=== PATIENT | female | born 1930 | race Caucasian/White ===

== ENCOUNTER 2016-11-27 06:51 | Outpatient (CLI) | payer MEDICARE, MEDICAID | END 2016-11-27 06:52 | disposition home or self-care (01) | DX: I50.40 Unspecified combined systolic (congestive) and diastolic (congestive) heart failure (principal); N18.9 Chronic kidney disease, unspecified ==

== ENCOUNTER 2016-11-27 08:00 | Outpatient (CLI) | payer MEDICARE, MEDICAID | END 2016-11-27 23:59 | disposition home or self-care (01) | DX: N39.0 Urinary tract infection, site not specified (principal) ==

== ENCOUNTER 2017-02-03 21:25 | Outpatient (CLI) | payer MEDICARE, MEDICAID | END 2017-02-03 21:26 | DX: E88.9 Metabolic disorder, unspecified (principal); R73.09 Other abnormal glucose; T46.0X5A Adverse effect of cardiac-stimulant glycosides and drugs of similar action, initial encounter ==

== ENCOUNTER 2017-02-22 12:30 | Outpatient (CLI) | payer MEDICARE, MEDICAID | END 2017-02-22 12:31 | disposition home or self-care (01) | DX: N18.9 Chronic kidney disease, unspecified (principal); I50.9 Heart failure, unspecified ==

== ENCOUNTER 2017-03-28 08:00 | Outpatient (CLI) | payer MEDICARE, MEDICAID ==
[2017-03-28 16:10] LABS: BASOPHILS # (AUTO) 0.1 10^3/uL (0.0-0.1); BASOPHILS % (AUTO) 0.5 %; EOSINOPHILS # (AUTO) 0.3 10^3/uL (0.0-0.7); EOSINOPHILS % (AUTO) 2.1 %; HCT - HEMATOCRIT 34.5 % (37.0-47.0); HGB - HEMOGLOBIN 11.1 g/dL (12.0-16.0); LYMPHOCYTES # (AUTO) 1.7 10^3/uL (1.5-3.5); LYMPHOCYTES % (AUTO) 11.2 %; MEAN CORPUSCULAR HEMOGLOBIN 29.2 pg (27.0-31.0); MEAN CORPUSCULAR HGB CONC 32.3 g/dL (32.0-36.0); MEAN CORPUSCULAR VOLUME 90.3 fL (81.0-99.0); MEAN PLATELET VOLUME 7.4 fL (7.9-10.8); MONOCYTES # (AUTO) 0.9 10^3/uL (0.0-1.0); MONOCYTES % (AUTO) 6.3 %; NEUTROPHILS # (AUTO) 12.1 10^3/uL (1.5-6.6); NEUTROPHILS % (AUTO) 79.9 %; RED BLOOD COUNT 3.82 10^6/uL (4.20-5.40); RED CELL DISTRIBUTION WIDTH 14.7 % (12.0-15.0); UNCORRECTED WHITE BLOOD COUNT 15.1 x10^3/uL; WHITE BLOOD COUNT 15.1 x10^3/uL (4.8-10.8)
[2017-03-28 16:21] LABS: CALCIUM 8.8 mg/dL (8.5-10.3); CREATININE 1.8 mg/dL (0.4-1.0); POTASSIUM 4.2 mmol/L (3.5-5.0)
== END 2017-03-28 08:01 | disposition home or self-care (01) ==
LOC: LAB.R 08:00
DX: R79.9 Abnormal finding of blood chemistry, unspecified (principal); R68.89 Other general symptoms and signs
CPT/HCPCS: 80048; 85025

== ENCOUNTER 2017-05-28 18:00 | Outpatient (CLI) | payer MEDICARE, MEDICAID ==
[2017-05-28 21:13] LABS: BASOPHILS # (AUTO) 0.1 10^3/uL (0.0-0.1); BASOPHILS % (AUTO) 0.5 %; EOSINOPHILS % (AUTO) 0.1 %; HCT - HEMATOCRIT 34.7 % (37.0-47.0); HGB - HEMOGLOBIN 11.4 g/dL (12.0-16.0); LYMPHOCYTES # (AUTO) 0.4 10^3/uL (1.5-3.5); LYMPHOCYTES % (AUTO) 2.8 %; MEAN CORPUSCULAR HEMOGLOBIN 30.1 pg (27.0-31.0); MEAN CORPUSCULAR HGB CONC 32.8 g/dL (32.0-36.0); MEAN CORPUSCULAR VOLUME 91.7 fL (81.0-99.0); MEAN PLATELET VOLUME 8.4 fL (7.9-10.8); MONOCYTES # (AUTO) 0.8 10^3/uL (0.0-1.0); MONOCYTES % (AUTO) 5.3 %; NEUTROPHILS # (AUTO) 13.8 10^3/uL (1.5-6.6); NEUTROPHILS % (AUTO) 91.3 %; RED BLOOD COUNT 3.79 10^6/uL (4.20-5.40); RED CELL DISTRIBUTION WIDTH 16.6 % (12.0-15.0); UNCORRECTED WHITE BLOOD COUNT 15.1 x10^3/uL; WHITE BLOOD COUNT 15.1 x10^3/uL (4.8-10.8)
[2017-05-28 21:20] LABS: CALCIUM 8.8 mg/dL (8.5-10.3); CREATININE 1.9 mg/dL (0.4-1.0); POTASSIUM 3.1 mmol/L (3.5-5.0)
== END 2017-05-28 18:01 | disposition home or self-care (01) ==
LOC: LAB 18:00
PROVIDERS: ATTEND Internal Medicine
DX: N39.0 Urinary tract infection, site not specified (principal); R68.89 Other general symptoms and signs
CPT/HCPCS: 80048; 80053; 85025; 87086

== ENCOUNTER 2017-05-29 08:01 | Outpatient (CLI) | payer MEDICARE, MEDICAID | END 2017-05-29 08:02 | disposition critical access hospital (66) | LOC: EMS 08:01 | PROVIDERS: ATTEND Surgery | DX: R69 Illness, unspecified (principal) | CPT/HCPCS: A0425; A0429 ==

== ENCOUNTER 2017-05-29 08:06 | Inpatient (IN) | payer MEDICARE, MEDICAID ==
[2017-05-29] MEDS ORDERED: SODIUM CHLORIDE 0.9% 1,000 ML IV ONE ×2 (08:24→10:16)
[2017-05-29] MEDS ORDERED: ACETAMINOPHEN 1,000 MG/100 ML 100 ML IV STA (08:24)
[2017-05-29 08:37] LABS: BILIRUBIN,URINE NEGATIVE (NEGATIVE)
[2017-05-29 08:44] LABS: UA w/ MICROSCOPIC CHARGE YES
[2017-05-29] MEDS ORDERED: ACETAMINOPHEN 1,000 MG/100 ML 100 ML IV ONE (08:52)
[2017-05-29 08:55] LABS: CALCIUM 9.1 mg/dL (8.5-10.3); CREATININE 1.9 mg/dL (0.4-1.0); POTASSIUM 3.2 mmol/L (3.5-5.0)
--- NOTE | 2017-05-29 08:59 | ED Physician Documentation ---
History of Present Illness - Stated complaint Stated Complaint: FLU LIKE SX - Chief complaint Chief Complaint: General - History obtained from History obtained from: Patient - Additonal information Additional information: Patient is a 87-year-old female from a retirement. She does have a history of multiple medical problems including dementia and is difficult to get any historic information from her at this time either due to underlying dementia due to an acute medical illness. Apparently she is sent over for evaluation of fever and concern for possible influenza. We believe her symptoms started last night because a sent blood work and a urine yesterday. Her white count at that time was 15. Here the patient has no complaints she is lying in the bed on her left side and is mostly nonverbal and moans when you touch her. She cries out in pain when she is stimulated anywhere. She is noted to be febrile here with a rectal temp of 103. Review of the patient's past medical history includes congestive heart failure, hypertension, atrial fibrillation on digoxin, dementia , diabetes chronic kidney disease and gout. She is limited intervention as far as resuscitation. Complete review of systems cannot be obtained due to patient's altered mental status and underlying dementia Review of Systems Unable to obtain: AMS, Dementia PD PAST MEDICAL HISTORY - Past Medical History Past Medical History: Yes Cardiovascular: Congestive heart failure, Hypertension, Atrial fibrillation, Arrhythmia Neuro: Dementia Endocrine/Autoimmune: Type 2 diabetes : Renal insuffiency - Past Surgical History Past Surgical History: No - Present Medications Home Medications: Ambulatory Orders Medication Instructions Recorded Confirmed Allopurinol 300 mg PO DAILY 06/25/13 05/29/17 Aspirin [Aspir 81] 81 mg PO DAILY 06/25/13 05/29/17 Cetirizine [ZyrTEC] 10 mg PO ONCE 06/25/13 05/29/17 Furosemide 20 mg PO DAILY 06/25/13 05/29/17 Meclizine [Antivert] 12.5 mg PO Q6H 06/25/13 05/29/17 Potassium Chloride [Klor-Con] 20 meq PO DAILY 06/25/13 05/29/17 Ranitidine HCl 150 mg PO DAILY 06/25/13 05/29/17 Atorvastatin [Lipitor] 20 mg PO DAILY 05/29/17 05/29/17 Digoxin [Lanoxin] 125 mcg PO DAILY 05/29/17 05/29/17 Metoprolol Tartrate 25 mg PO BID 05/29/17 05/29/17 Polyethylene Glycol 3350 [Miralax] 17 g PO DAILY 05/29/17 05/29/17 Prazosin [Minipress] 1 mg PO DAILY 05/29/17 05/29/17 - Allergies Allergies/Adverse Reactions: Allergies Allergy/AdvReac Type Severity Reaction Status Date / Time No Known Drug Allergies Allergy Verified 06/25/13 11:43 - Social History Does the pt smoke?: No Smoking Status: Never smoker Does the pt drink ETOH?: No Does the pt have substance abuse?: No - POLST Patient has POLST: No PD ED PE NORMAL - Vitals Vital signs reviewed: Yes - General General: Other (Somnolent but arousable to voice elderly female lying in the bed left lateral decubitus position. She is very warm to touch) - HEENT HEENT: Atraumatic, PERRL, Other (Edentulous dry oral mucosa) - Neck Neck: Supple, no meningeal sign - Cardiac Cardiac: RRR, Other (Stenotic sounding murmur on auscultation) - Respiratory Respiratory: No respiratory distress, Clear bilaterally - Abdomen Abdomen: Normal bowel sounds, Soft, Non tender, Non distended - Back Back: No CVA TTP - Derm Derm: Normal color, Warm and dry, No rash - Extremities Extremities: No deformity, No tenderness to palpate - Neuro Neuro: No motor deficit, No sensory deficit Results - Vitals Vitals: Vital Signs - 24 hr 05/29/17 05/29/17 05/29/17 08:08 08:47 09:56 Temperature 39.6 C H 37.6 C H Heart Rate 96 94 79 Respiratory 22 18 22 Rate Blood Pressure 176/88 H 177/55 H 144/49 H O2 Saturation 97 95 95 Oxygen O2 Source Room air - Labs Labs: Laboratory Tests 05/29/17 05/29/17 05/29/17 08:20 08:40 08:40 WBC RBC Hgb Hct MCV MCH MCHC RDW Plt Count MPV Sodium 136 Potassium 3.2 L Chloride 100 L Carbon Dioxide 25 Anion Gap 11.0 BUN 26 H Creatinine 1.9 H Estimated GFR (MDRD) 25 L Glucose 154 H Lactic Acid Calcium 9.1 Troponin I 0.10 Urine Color YELLOW Urine Clarity CLEAR Urine pH 7.0 Ur Specific [place] 1.020 Urine Protein >=300 H Urine Glucose (UA) NEGATIVE Urine Ketones NEGATIVE Urine Occult Blood SMALL H Urine Nitrite NEGATIVE Urine Bilirubin NEGATIVE Urine Urobilinogen 1 (NORMAL) Ur Leukocyte Esterase NEGATIVE Urine RBC 0-5 Urine WBC 0-3 Ur Squamous Epith Cells FEW Squamous Urine Bacteria Few Urine Casts 0-2 Course Granular Ur Microscopic Review INDICATED Urine Culture Comments NOT INDICATED Last Dose Date Last Dose Time Digoxin 05/29/17 05/29/17 05/29/17 08:40 08:40 08:40 WBC 20.5 H RBC 4.11 L Hgb 12.0 Hct 36.9 L MCV 89.7 MCH 29.3 MCHC 32.6 RDW 16.6 H Plt Count 266 MPV 8.3 Sodium Potassium Chloride Carbon Dioxide Anion Gap BUN Creatinine Estimated GFR (MDRD) Glucose Lactic Acid 1.3 Calcium Troponin I Urine Color Urine Clarity Urine pH Ur Specific [place] Urine Protein Urine Glucose (UA) Urine Ketones Urine Occult Blood Urine Nitrite Urine Bilirubin Urine Urobilinogen Ur Leukocyte Esterase Urine RBC Urine WBC Ur Squamous Epith Cells Urine Bacteria Urine Casts Ur Microscopic Review Urine Culture Comments Last Dose Date UNK Last Dose Time UNK Digoxin 0.8 PD MEDICAL DECISION MAKING - ED course Complexity details: reviewed old records, reviewed results, re-evaluated patient , considered differential, d/w patient ED course: 87-year-old female who was sent in for evaluation of an illness. The retirement thought maybe she had influenza. Apparently she was sick last night and he sent a CBC which came back elevated with white count of 15. Urine initial presentation the patient is somnolent here on initial examination the patient is somnolent and noted to be febrile probably a combination of dementia and underlying disease process. Her neurologic exam however is nonfocal. An IV line was started she is given fluid hydration and IV Tylenol. Once the blood cultures are obtained a chest x-ray was performed which demonstrates airspace disease in the right side probably consistent with early pneumonic infiltrate. Rocephin and then azithromycin was added on. Her white count is increased from last night to 20,000. Her lactate is within normal limits at this time. Despite having EKG despite having a history of atrial fibrillation she is in normal sinus rhythm today this EKG demonstrates normal sinus rhythm at 84 bpm the LA QRS and QT intervals are normal there is no obvious ST elevation, depression or T-wave inversion there is a couple PVCs seen. This patient does have chronic kidney disease which is ongoing. Her urine is negative for infection. At this point in time we will seek admission for this patient. Disposition: Admission Clinical impression: 1. Sepsis 2. Source is urine source is pneumonia 3. Chronic kidney disease 4. History of atrial fibrillation 5. History of dementia Departure - Departure Disposition: ED Place in Observation Clinical Impression: Pneumonia
[2017-05-29] MEDS ORDERED: cefTRIAXone 1 GM VIAL IM STA (09:15)
--- NOTE | 2017-05-29 09:19 | XRAY Preliminary Report ---
Exam: XR Chest 1 View IMPRESSION: Right lower lobe airspace disease. [facility] SITE ID: [id number]
--- NOTE | 2017-05-29 09:21 | XRAY Report ---
EXAM: CHEST RADIOGRAPHY EXAM DATE: 05/29/2017 09:08 AM. CLINICAL HISTORY: Sepsis/cough. COMPARISON: Chest radiograph dated 06/25/2013. TECHNIQUE: 1 view. FINDINGS: Lungs/Pleura: Irregular opacities in the right midlung field. His were not present on the prior exami nation. No pleural effusion or pneumothorax. Mediastinum: Within exam limitations, cardiomediastinal contour is normal. Other: None. IMPRESSION: Right lower lobe airspace disease. [facility] Referring Provider Line: [phone] SITE ID: [id number]
[2017-05-29 09:23] LABS: WBC,URINE 0-3 /HPF (0-5)
[2017-05-29 09:24] LABS: UR CULTURE IF IND NOT INDICATED
[2017-05-29] MEDS ORDERED: cefTRIAXone 1 GM VIAL ONE (09:36)
[2017-05-29] MEDS ORDERED: SODIUM CHLORIDE FLUSH 0.9% 10 ML SYRINGE IVP ONE ×2 (09:36→10:25)
[2017-05-29] MEDS ORDERED: cefTRIAXone 1 GM in SODIUM CHLORIDE 0.9% MINIBAG 100 ML IV STA (09:50)
[2017-05-29 09:56] LABS: BASOPHILS % (AUTO) 0.4 %; EOSINOPHILS % (AUTO) 0.1 %; HCT - HEMATOCRIT 36.9 % (37.0-47.0); LYMPHOCYTES % (AUTO) 3.6 %; MEAN CORPUSCULAR HEMOGLOBIN 29.3 pg (27.0-31.0); MEAN CORPUSCULAR HGB CONC 32.6 g/dL (32.0-36.0); MEAN CORPUSCULAR VOLUME 89.7 fL (81.0-99.0); MEAN PLATELET VOLUME 8.3 fL (7.9-10.8); MONOCYTES % (AUTO) 2.9 %; RED BLOOD COUNT 4.11 10^6/uL (4.20-5.40); RED CELL DISTRIBUTION WIDTH 16.6 % (12.0-15.0); UNCORRECTED WHITE BLOOD COUNT 20.5 x10^3/uL; WHITE BLOOD COUNT 20.5 x10^3/uL (4.8-10.8)
[2017-05-29 10:00] LABS: BAND NEUTROPHILS % (MANUAL) 0 %
[2017-05-29] MEDS ORDERED: AZITHROMYCIN INJ 500 MG in SODIUM CHLORIDE 0.9% 250 ML IV STA (10:16)
[2017-05-29] MEDS ORDERED: MECLIZINE 12.5 MG TABLET PO PRN (11:12)
[2017-05-29] MEDS ORDERED: PROCHLORPERAZINE 10 MG/2 ML VIAL IVP PRN (11:16)
[2017-05-29] MEDS ORDERED: ONDANSETRON 4 MG/2 ML VIAL IVP PRN (11:16)
[2017-05-29] MEDS ORDERED: oxyCODONE 5 MG TABLET PO PRN (11:16)
[2017-05-29] MEDS ORDERED: ZOLPIDEM 5 MG TABLET PO PRN (11:16)
[2017-05-29] MEDS ORDERED: SODIUM CHLORIDE FLUSH 0.9% 10 ML SYRINGE IVP PRN (11:16)
[2017-05-29 11:56] LABS: LYMPHOCYTES % (MANUAL) 3 %; NEUTROPHILS % (MANUAL) 95 %; TOTAL CELLS COUNTED 100
[2017-05-29 12:00] LABS: NP AUTO DIFFERENTIAL? YES; NP MAN DIFFERENTIAL? NO; PLATELET ESTIMATE, MANUAL NORMAL (130-450,000) (NORMAL); PLATELET MORPHOLOGY NORMAL APPEARANCE (NORMAL)
[2017-05-29] MEDS: SODIUM CHLORIDE 0.9% 1,000 ML IV SCH ×2 (12:17→21:58)
[2017-05-29] MEDS: INSULIN ASPART 300 UNIT/3 ML PEN SUBQ SCH ×3 (12:21→22:16)
[2017-05-29 12:24] LABS: HEMOGLOBIN A1C 0.58 g/dL
[2017-05-29] MEDS: SODIUM CHLORIDE FLUSH 0.9% 10 ML SYRINGE IVP SCH ×2 (15:02→21:58)
[2017-05-29] MEDS: ACETAMINOPHEN 325 MG TABLET PO PRN (16:39)
[2017-05-29] MEDS: PRAZOSIN 1 MG CAPSULE PO SCH (18:36)
[2017-05-29] MEDS: METOPROLOL TARTRATE 25 MG TABLET PO SCH ×2 (18:36→20:38)
--- NOTE | 2017-05-29 19:40 | HISTORY & PHYSICAL EXAMINATION ---
Chief Complaint - Chief Complaint Chief Complaint: lethargy History of Present Illness - Admitted From Admitted From:: emergency department - History Obtained From Records Reviewed: yes History obtained from: patient's son and daughter Exam Limitations: patient very lethargic unable to provide history - History of Present Illness HPI Comment/Other: Patient is an 87-year-old female with a past medical history significant for diabetes, CTD stage III, asthma, hyperlipidemia, dementia, vertigo, GERD and atrial fibrillation not on Coumadin who presented to the emergency with lethargy. According to the patient's family the patient had not been feeling well for about 3 days. He states that she lives at [facility] and for the past 3 days the patient has become increasingly confused. She has been spiking fevers at [place]. She has become less and less active and increasingly weak. The family became very concerned as the patient was very somnolent this morning and had not gotten out of bed. The patient states that the altered mental status and lethargy were waxing and waning over the last 3 days but today she was persistently somnolent. The patient was seen by a physician yesterday in the skilled nursing and was found to have a leukocytosis once labs were received the patient was told to come into the emergency department. According to the family the patient has not been having any recent cough, shortness of breath, chest pain or any urinary symptoms. I was unable to get a history from the patient secondary to patient being lethargic and being unable to provide any history. On presentation to the emergency department the patient was febrile with a temperature of 39.6, tachycardic with heart rate of 96, tachypneic with respiratory rate of 22, she was lethargic and had a leukocytosis of 20.5. The patient underwent a chest x-ray which showed a right lower lobe airspace disease. The patient was admitted to the [facility] for sepsis likely secondary to pneumonia. Review of Systems - Other Findings Other Findings: Unable to obtain as patient is lethargic and cannot provide history. History - Past Medical History Cardiovascular: reports: Congestive heart failure, Hypertension, Atrial fibrillation, Arrhythmia Neuro: reports: Dementia Endocrine/Autoimmune: reports: Type 2 diabetes : reports: Renal insuffiency MRSA Hx?: No - Family & Social History Family History Comment/Other: Patient's mother had diabetes. Patient's daughter has diabetes. Patient's mother also had dementia. There is no family history of cancer or heart disease or stroke. Living arrangement: longterm Living Situation: Alone Social History Notes: The patient was born and [place]. She lives at [facility]. She is in a skilled nursing for the past year. Prior to that she lived with her son but he was unable to take care of her anymore as she was having increasing dementia. The patient's sister also lives with her at [facility]. The patient was previously a smoker quit in 1992 she used to smoke one pack per day. She does not drink any alcohol or using illicit drugs. - Substance History Use: Uses substance without health or social issues: NONE Abuse: Recurrent use of substance despite neg consequences: NONE Dependence: Experiences withdrawal or developed tolerances: NONE - POLST Patient has POLST: Yes POLST Status: DNR Meds/Allgy - Home Medications Home Medications: Ambulatory Orders Medication Instructions Recorded Confirmed Allopurinol 300 mg PO DAILY 06/25/13 05/29/17 Aspirin [Aspir 81] 81 mg PO DAILY 06/25/13 05/29/17 Cetirizine [ZyrTEC] 10 mg PO ONCE 06/25/13 05/29/17 Furosemide 20 mg PO DAILY 06/25/13 05/29/17 Meclizine [Antivert] 12.5 mg PO Q6H 06/25/13 05/29/17 Potassium Chloride [Klor-Con] 20 meq PO DAILY 06/25/13 05/29/17 Ranitidine HCl 150 mg PO DAILY 06/25/13 05/29/17 Atorvastatin [Lipitor] 20 mg PO DAILY 05/29/17 05/29/17 Digoxin [Lanoxin] 125 mcg PO DAILY 05/29/17 05/29/17 Metoprolol Tartrate 25 mg PO BID 05/29/17 05/29/17 Polyethylene Glycol 3350 [Miralax] 17 g PO DAILY 05/29/17 05/29/17 Prazosin [Minipress] 1 mg PO DAILY 05/29/17 05/29/17 - Allergies Allergies/Adverse Reactions: Allergies Allergy/AdvReac Type Severity Reaction Status Date / Time No Known Drug Allergies Allergy Verified 06/25/13 11:43 Exam - Vital Signs Reviewed Vital Signs: Yes Vital Signs: Vital Signs x48h Temp Pulse Pulse Resp BP BP Pulse Ox 05/29/17 18:58 38.0 C H 05/29/17 17:07 39.3 C H 90 18 188/85 H 96 05/29/17 12:10 36.5 C 74 18 160/76 H 95 05/29/17 11:36 37.2 C 73 20 167/58 H 98 - Physical Exam General Appearance: positive: Lethargic, Other (very difficult to arouse, lethargic, unable to provide history. Unable to follow commands.) Eyes Bilateral: positive: Normal inspection, PERRL, EOMI, No lid inflammation, Conjunctivae nml, No scleral icterus ENT: positive: ENT inspection nml, Pharynx nml, Dry mucous membranes (very dry) . negative: Purulent nasal drainage, Pharyngeal erythema, Oral lesions Neck: positive: Nml inspection, Thyroid nml, No JVD, Trachea midline. negative : Thyromegaly, Carotid bruit, Tracheal deviation Respiratory: positive: Chest non-tender, Rales (right lower lobe), Rhonchi ( right lower lobe), Other (tachypnea) Cardiovascular: positive: No murmur, No gallop, Irregularly irregular Peripheral Pulses: positive: 2+ Abdomen: positive: Non-tender, No organomegaly, Nml bowel sounds, No distention. negative: Guarding, Rebound, Hepatomegaly Back: positive: Nml inspection. negative: CVA tenderness (R), CVA tenderness (L ) Skin: positive: Color nml, No rash, Dry. negative: Cyanosis, Pallor Extremities: positive: Non-tender, Full ROM, No pedal edema Neurologic/Psychiatric: positive: Other (lethargic, uunable to follow commands, nonverbal. no focal deficits noted) Conclusion/Plan - Problem List (1) Sepsis Conclusion/Plan: Presented with lethargy and found to have tachycardia, tachypneic, febrile and WBC was 20 K Lactate normal Source appears to be pneumonia Plan: IV cefriaxone and azithro IV fluids Blood cultures pending Monitor closely on tele (2) CAP (community acquired pneumonia) Conclusion/Plan: Presented with sepsis and CXR showed right lower lobe pneumonia Continues to spike fevers and has WBC of 20K Plan: IV ceftriaxone and azithro IVFs Tylenol for fever Oxygen as needed Blood cx pending (3) Hypokalemia Conclusion/Plan: K was 3.2 on presentation likely secondary to dehydration as patient had vomiting at home and presented with sepsis secondary to pneumonia IV K riders Monitor K (4) Encephalopathy acute Conclusion/Plan: Secondary to sepsis Treat sepsis as above and monitor CT head if not improving (5) Atrial fibrillation Conclusion/Plan: HR controlled not on anticoagulation cOtninue digoxin and metoprolol Tele monitoring Qualifiers: Atrial fibrillation type: chronic Qualified Code(s): I48.2 - Chronic atrial fibrillation (6) Diabetes Conclusion/Plan: No on meds at home Given sepsis will control tightly with sliding scale insulin DM diet HbA1C Qualifiers: Diabetes mellitus type: type 2 (7) Hypertension Conclusion/Plan: BP stable Continue home meds Watch for hypotension with sepsis Give IVFs Qualifiers: Hypertension type: essential hypertension Qualified Code(s): I10 - Essential (primary) hypertension (8) Prophylactic use of low molecular weight heparin for venous thromboembolism (VTE) Conclusion/Plan: Place on lovenox - Lab Results Lab results reviewed: Yes Fish Bones: 05/29/17 08:40 05/29/17 08:40 Other Lab Results: Laboratory Results WBC 20.5 x10^3/uL (4.8-10.8) H 05/29/17 08:40 RBC 4.11 10^6/uL (4.20-5.40) L 05/29/17 08:40 Hgb 12.0 g/dL (12.0-16.0) 05/29/17 08:40 Hct 36.9 % (37.0-47.0) L 05/29/17 08:40 MCV 89.7 fL (81.0-99.0) 05/29/17 08:40 MCH 29.3 pg (27.0-31.0) 05/29/17 08:40 MCHC 32.6 g/dL (32.0-36.0) 05/29/17 08:40 RDW 16.6 % (12.0-15.0) H 05/29/17 08:40 Plt Count 266 10^3/uL (130-450) 05/29/17 08:40 MPV 8.3 fL (7.9-10.8) 05/29/17 08:40 Neut # Not Reportable 05/29/17 08:40 Lymph # Not Reportable 05/29/17 08:40 [place] # Not Reportable 05/29/17 08:40 Eos # Not Reportable 05/29/17 08:40 Baso # Not Reportable 05/29/17 08:40 Absolute Nucleated RBC Not Reportable 05/29/17 08:40 Total Counted 100 05/29/17 08:40 Band Neuts % (Manual) 0 % (0-10) 05/29/17 08:40 Neutrophils # (Manual) 19.5 10^3/uL (1.5-6.6) H 05/29/17 08:40 Lymphocytes # (Manual) 0.6 10^3/uL (1.5-3.5) L 05/29/17 08:40 Monocytes # (Manual) 0.4 10^3/uL (0.0-1.0) 05/29/17 08:40 Nucleated RBCs Not Reportable 05/29/17 08:40 Differential Comment MANUAL DIFFERENTIAL 05/29/17 08:40 Platelet Estimate NORMAL (130-450,000) (NORMAL) 05/29/17 08:40 Platelet Morphology NORMAL APPEARANCE (NORMAL) 05/29/17 08:40 RBC Morph Micro Appear 2+ ANISOCYTOSIS (NORMAL) 1+ MACROCYTOSIS (NORMAL) 1+ OVALOCYTES (NORMAL) 1+ POIKILOCYTOSIS (NORMAL) 05/29/17 08:40 RBC Morph Micro Appear 2+ ANISOCYTOSIS (NORMAL) 1+ MACROCYTOSIS (NORMAL) 1+ OVALOCYTES (NORMAL) 1+ POIKILOCYTOSIS (NORMAL) 05/29/17 08:40 RBC Morph Micro Appear 2+ ANISOCYTOSIS (NORMAL) 1+ MACROCYTOSIS (NORMAL) 1+ OVALOCYTES (NORMAL) 1+ POIKILOCYTOSIS (NORMAL) 05/29/17 08:40 RBC Morph Micro Appear 2+ ANISOCYTOSIS (NORMAL) 1+ MACROCYTOSIS (NORMAL) 1+ OVALOCYTES (NORMAL) 1+ POIKILOCYTOSIS (NORMAL) 05/29/17 08:40 Sodium 136 mmol/L (135-145) 05/29/17 08:40 Potassium 3.2 mmol/L (3.5-5.0) L 05/29/17 08:40 Chloride 100 mmol/L (101-111) L 05/29/17 08:40 Carbon Dioxide 25 mmol/L (21-32) 05/29/17 08:40 Anion Gap 11.0 (6-13) 05/29/17 08:40 BUN 26 mg/dL (6-20) H 05/29/17 08:40 Creatinine 1.9 mg/dL (0.4-1.0) H 05/29/17 08:40 Estimated GFR (MDRD) 25 (>89) L 05/29/17 08:40 Glucose 154 mg/dL (70-100) H 05/29/17 08:40 Glycated Hemoglobin 6.0 % (4.6-6.2) 05/29/17 09:50 Estim Average Glucose 126 (70-100) H 05/29/17 09:50 Lactic Acid 1.3 mmol/L (0.5-2.2) 05/29/17 08:40 Calcium 9.1 mg/dL (8.5-10.3) 05/29/17 08:40 Troponin I 0.10 ng/mL (<0.49) 05/29/17 08:40 Urine Color YELLOW 05/29/17 08:20 Urine Clarity CLEAR (CLEAR) 05/29/17 08:20 Urine pH 7.0 PH (5.0-7.5) 05/29/17 08:20 Ur Specific [place] 1.020 (1.002-1.030) 05/29/17 08:20 Urine Protein >=300 mg/dL (NEGATIVE) H 05/29/17 08:20 Urine Glucose (UA) NEGATIVE mg/dL (NEGATIVE) 05/29/17 08:20 Urine Ketones NEGATIVE mg/dL (NEGATIVE) 05/29/17 08:20 Urine Occult Blood SMALL (NEGATIVE) H 05/29/17 08:20 Urine Nitrite NEGATIVE (NEGATIVE) 05/29/17 08:20 Urine Bilirubin NEGATIVE (NEGATIVE) 05/29/17 08:20 Urine Urobilinogen 1 (NORMAL) E.U./dL (NORMAL) 05/29/17 08:20 Ur Leukocyte Esterase NEGATIVE (NEGATIVE) 05/29/17 08:20 Urine RBC 0-5 /HPF (0-5) 05/29/17 08:20 Urine WBC 0-3 /HPF (0-5) 05/29/17 08:20 Ur Squamous Epith Cells FEW Squamous (<= Few) 05/29/17 08:20 Urine Bacteria Few /HPF (None Seen) 05/29/17 08:20 Urine Casts 0-2 Course Granular /LPF 05/29/17 08:20 Ur Microscopic Review INDICATED 05/29/17 08:20 Urine Culture Comments NOT INDICATED 05/29/17 08:20 Last Dose Date UNK 05/29/17 08:40 Last Dose Time UNK 05/29/17 08:40 Digoxin 0.8 ng/mL 05/29/17 08:40 - Diagnostic Imaging Results Diagnostic Imaging Results: positive: Final report reviewed Diagnostic Imaging Results Comments: Chest x-ray Impression: Right lower lobe airspace disease - EKG Results EKG Interpreted Independently: Yes Issues/Core Measures - Anticipated LOS Anticipated Stay Length: 2 or more midnights - DVT/VTE - Prophylaxis VTE/DVT Prophylaxis med ordered at admit?: Yes
[2017-05-29] MEDS: POTASSIUM CHLOR 10 MEQ/100 ML 100 ML IV SCH ×3 (20:38→22:53)
[2017-05-29] MEDS ORDERED: ACETAMINOPHEN 650 MG SUPP PR PRN (23:06)
[2017-05-30] MEDS: PANTOPRAZOLE 40 MG TABLET PO SCH (06:31)
[2017-05-30] MEDS: SODIUM CHLORIDE FLUSH 0.9% 10 ML SYRINGE IVP SCH ×3 (06:31→19:48)
[2017-05-30 06:38] LABS: BASOPHILS % (AUTO) 0.2 %; EOSINOPHILS % (AUTO) 0.1 %; HGB - HEMOGLOBIN 10.7 g/dL (12.0-16.0); LYMPHOCYTES % (AUTO) 6.6 %; MEAN CORPUSCULAR HEMOGLOBIN 29.8 pg (27.0-31.0); MEAN CORPUSCULAR HGB CONC 32.4 g/dL (32.0-36.0); MEAN CORPUSCULAR VOLUME 91.8 fL (81.0-99.0); MEAN PLATELET VOLUME 8.3 fL (7.9-10.8); MONOCYTES # (AUTO) 0.5 10^3/uL (0.0-1.0); MONOCYTES % (AUTO) 2.9 %; NEUTROPHILS # (AUTO) 14.2 10^3/uL (1.5-6.6); NEUTROPHILS % (AUTO) 90.2 %; RED CELL DISTRIBUTION WIDTH 16.4 % (12.0-15.0); UNCORRECTED WHITE BLOOD COUNT 15.8 x10^3/uL; WHITE BLOOD COUNT 15.8 x10^3/uL (4.8-10.8)
[2017-05-30] MEDS: SODIUM CHLORIDE 0.9% 1,000 ML IV SCH ×2 (06:45→16:37)
[2017-05-30 06:48] LABS: CALCIUM 8.4 mg/dL (8.5-10.3); CREATININE 1.5 mg/dL (0.4-1.0); POTASSIUM 3.6 mmol/L (3.5-5.0)
[2017-05-30] MEDS: INSULIN ASPART 300 UNIT/3 ML PEN SUBQ SCH ×4 (08:38→21:35)
[2017-05-30] MEDS: cefTRIAXone 2 GM in SODIUM CHLORIDE 0.9% MINIBAG 100 ML IV SCH (08:39)
[2017-05-30] MEDS ORDERED: POTASSIUM CHLORIDE 20 MEQ TABLET PO SCH (09:00)
[2017-05-30] MEDS: AZITHROMYCIN INJ 500 MG in SODIUM CHLORIDE 0.9% 250 ML IV SCH (10:00)
[2017-05-30] MEDS: ASPIRIN EC 81 MG TABLET PO SCH (12:08)
[2017-05-30] MEDS: ATORVASTATIN 10 MG TABLET PO SCH (12:08)
[2017-05-30] MEDS: ALLOPURINOL 100 MG TABLET PO SCH (12:08)
[2017-05-30] MEDS: ENOXAPARIN 40 MG/0.4 ML SYRINGE SUBQ SCH (12:09)
[2017-05-30] MEDS: FUROSEMIDE 20 MG TABLET PO SCH (12:09)
[2017-05-30] MEDS: DIGOXIN 125 MCG TABLET PO SCH (12:09)
[2017-05-30] MEDS: METOPROLOL TARTRATE 25 MG TABLET PO SCH ×2 (12:09→21:39)
[2017-05-30] MEDS: PRAZOSIN 1 MG CAPSULE PO SCH (12:09)
[2017-05-30] MEDS: POLYETHYLENE GLYCOL 3350 17 GM PACKET PO SCH (12:10)
[2017-05-30] MEDS: ACETAMINOPHEN 325 MG TABLET PO PRN ×2 (16:38→21:39)
[2017-05-31] MEDS: SODIUM CHLORIDE 0.9% 1,000 ML IV SCH ×2 (01:55→16:22)
[2017-05-31] MEDS: SODIUM CHLORIDE FLUSH 0.9% 10 ML SYRINGE IVP SCH ×3 (06:18→20:42)
[2017-05-31 06:30] LABS: CALCIUM 8.3 mg/dL (8.5-10.3); CREATININE 1.4 mg/dL (0.4-1.0); POTASSIUM 2.8 mmol/L (3.5-5.0)
[2017-05-31 06:31] LABS: BASOPHILS % (AUTO) 0.2 %; EOSINOPHILS # (AUTO) 0.5 10^3/uL (0.0-0.7); EOSINOPHILS % (AUTO) 5.5 %; HCT - HEMATOCRIT 31.4 % (37.0-47.0); HGB - HEMOGLOBIN 10.4 g/dL (12.0-16.0); LYMPHOCYTES % (AUTO) 11.4 %; MEAN CORPUSCULAR HEMOGLOBIN 30.1 pg (27.0-31.0); MEAN CORPUSCULAR HGB CONC 33.3 g/dL (32.0-36.0); MEAN CORPUSCULAR VOLUME 90.6 fL (81.0-99.0); MEAN PLATELET VOLUME 8.3 fL (7.9-10.8); MONOCYTES # (AUTO) 0.5 10^3/uL (0.0-1.0); MONOCYTES % (AUTO) 5.3 %; NEUTROPHILS % (AUTO) 77.6 %; RED BLOOD COUNT 3.47 10^6/uL (4.20-5.40); RED CELL DISTRIBUTION WIDTH 16.8 % (12.0-15.0)
[2017-05-31] MEDS: INSULIN ASPART 300 UNIT/3 ML PEN SUBQ SCH ×4 (07:30→20:43)
[2017-05-31] MEDS: POTASSIUM CHLORIDE 20 MEQ TABLET PO SCH (09:00)
[2017-05-31] MEDS: ASPIRIN EC 81 MG TABLET PO SCH (09:00)
[2017-05-31] MEDS: cefTRIAXone 2 GM in SODIUM CHLORIDE 0.9% MINIBAG 100 ML IV SCH (09:00)
[2017-05-31] MEDS: METOPROLOL TARTRATE 25 MG TABLET PO SCH ×2 (09:00→20:39)
[2017-05-31] MEDS: ATORVASTATIN 10 MG TABLET PO SCH (09:00)
[2017-05-31] MEDS: PRAZOSIN 1 MG CAPSULE PO SCH (09:00)
[2017-05-31] MEDS: FUROSEMIDE 20 MG TABLET PO SCH (09:00)
[2017-05-31] MEDS: DIGOXIN 125 MCG TABLET PO SCH (09:00)
[2017-05-31] MEDS: ALLOPURINOL 100 MG TABLET PO SCH (09:00)
[2017-05-31] MEDS: PANTOPRAZOLE 40 MG TABLET PO SCH (09:37)
[2017-05-31] MEDS: ENOXAPARIN 40 MG/0.4 ML SYRINGE SUBQ SCH (11:32)
[2017-05-31] MEDS: POLYETHYLENE GLYCOL 3350 17 GM PACKET PO SCH (11:33)
[2017-05-31] MEDS: AZITHROMYCIN INJ 500 MG in SODIUM CHLORIDE 0.9% 250 ML IV SCH (11:34)
--- NOTE | 2017-05-31 11:43 | PROVIDER PROGRESS NOTE ---
Assessment/Plan - Problem List (1) Sepsis Assessment/Plan: Presented with lethargy and found to have tachycardia, tachypneic, febrile and WBC was 20 K Lactate normal Source appears to be pneumonia WBC down to 15.8 but patient still spiking fevers throughout the night and again today with Tmax of 39.6 Patient still very lethargic but more easily arousable On IV cefriaxone and azithro day 2 Blood cultures negative to date Improving slowly (2) CAP (community acquired pneumonia) Conclusion/Plan: Presented with sepsis and CXR showed right lower lobe pneumonia IV ceftriaxone and azithro day 2 IVFs Tylenol for fever Blood negative to date On RA Still lethargic but slightly better Improving slowly (3) Hypokalemia Conclusion/Plan: K was 3.2 on presentation likely secondary to dehydration as patient had vomiting at home and presented with sepsis secondary to pneumonia IV K riders K improved to 3.6 today (4) Encephalopathy acute Conclusion/Plan: Secondary to sepsis Still lethargic but mildly improved with treatment of sepsis (5) Atrial fibrillation Conclusion/Plan: HR controlled not on anticoagulation cOtninue digoxin and metoprolol Qualifiers: Atrial fibrillation type: chronic Qualified Code(s): I48.2 - Chronic atrial fibrillation (6) Diabetes Conclusion/Plan: No on meds at home Given sepsis will control tightly with sliding scale insulin DM diet HbA1C is 6.0 Once sepsis resolves will be able to stop SS inulin Qualifiers: Diabetes mellitus type: type 2 (7) Hypertension Conclusion/Plan: BP stable Continue home meds Watch for hypotension with sepsis Give IVFs Qualifiers: Hypertension type: essential hypertension Qualified Code(s): I10 - Essential (primary) hypertension (8) Acute Kidney Injury Conclusion/Plan: Secondary to sepsis and pre-renal azotemia Avoid nephrotoxic agents IVFs Industrial Equipment Mechanic down from 1.9 to 1.5 Improving (9) Prophylactic use of low molecular weight heparin for venous thromboembolism (VTE) Conclusion/Plan: Place on lovenox - Current Meds Current Meds: Current Medications Generic Name Dose Route Start Last Admin Trade Name Freq PRN Reason Stop Dose Admin Acetaminophen 650 mg 05/29/17 11:16 05/30/17 21:39 Tylenol PO 650 mg Q4HR PRN Administration Pain 1 to 4 Allopurinol 300 mg 05/30/17 09:00 08/09/17 12:08 Zyloprim PO 300 mg DAILY MANJULA Administration Aspirin 81 mg 05/30/17 09:00 05/30/17 12:08 Ecotrin PO 81 mg DAILY MANJULA Administration Atorvastatin Calcium 20 mg 05/30/17 09:00 05/30/17 12:08 Lipitor PO 20 mg DAILY MANJULA Administration Digoxin 125 mcg 05/30/17 09:00 05/30/17 12:09 Lanoxin PO 125 mcg DAILY MANJULA Administration Enoxaparin Sodium 40 mg 05/30/17 09:00 05/30/17 12:09 Lovenox SUBQ Not Given DAILY MANJULA Furosemide 20 mg 05/30/17 09:00 05/30/17 12:09 Lasix PO 20 mg DAILY MANJULA Administration Sodium Chloride 1,000 mls @ 100 mls/hr 05/29/17 12:00 05/31/17 01:55 Normal Saline 0.9% IV 100 mls/hr .Q10H MANJULA Administration Azithromycin 500 mg/ Sodium 250 mls @ 250 mls/hr 05/30/17 09:00 05/30/17 10:00 Chloride IV 250 mls/hr DAILY MANJULA Administration Ceftriaxone Sodium 2 gm/ 100 mls @ 200 mls/hr 05/30/17 09:00 05/30/17 08:39 Sodium Chloride IV 200 mls/hr DAILY MANJULA Administration Insulin Aspart 1 - 5 unit 05/29/17 12:00 05/30/17 21:35 Novolog SUBQ Not Given 0800,1200,1700,2100 [facility] Protocol Metoprolol Tartrate 25 mg 05/29/17 17:00 05/30/17 21:39 Lopressor PO 25 mg BID MANJULA Administration Pantoprazole Sodium 40 mg 05/30/17 07:00 05/31/17 09:37 Protonix PO 40 mg QDAC MANJULA Administration Polyethylene Glycol 17 gm 05/30/17 09:00 05/30/17 12:10 Miralax PO Not Given DAILY MANJULA Prazosin HCl 1 mg 05/29/17 17:00 05/30/17 12:09 Minipress PO 1 mg DAILY MANJULA Administration Sodium Chloride 10 ml 05/29/17 14:00 05/31/17 06:18 Normal Saline Flush 0.9% IVP Not Given Q8HR MANJULA - Lab Result Lab results reviewed: Yes Fish Bone Diagrams: 05/31/17 05:33 05/31/17 05:33 - EKG Results EKG Interpreted Independently: Yes - Diagnostic Imaging Results Diagnostic Imaging Results: Final report reviewed - Additional Planning Condition/Complexity: Guarded My Orders: My Active Orders 05/31/17 09:00 Potassium Chlor 10 Meq/100 ml [Potassium Chloride] 100 ml IV Q1H Potassium Chloride [K-Dur] 40 meq PO DAILYWM Plan Discussed with:: Patient Time Spent: 31-60 minutes Subjective - Subjective Patient Reports: Other (Lethargic, sleepy, wakes up for me and said she feels ok but goes right back to sleep. She does not appear to be in any acute distress otherwise.) Nursing Reports: Other (Too lethargic to take meds) Objective Vital Signs: Vital Signs - 24 hr 05/30/17 05/30/17 05/30/17 11:25 12:09 16:27 Temperature 38.5 C H Heart Rate [ 42 L Brachial] Heart Rate [ 84 Supine] Respiratory 20 Rate Blood Pressure 184/75 H Blood Pressure 160/78 H [Right Brachial artery] Blood Pressure 184/75 H [Supine] O2 Saturation 98 05/30/17 05/30/17 05/30/17 19:37 21:33 21:39 Temperature 37.4 C 38.0 C H Heart Rate [ 80 Brachial] Heart Rate [ Supine] Respiratory Rate Blood Pressure 161/59 H Blood Pressure 161/59 H [Right Brachial artery] Blood Pressure [Supine] O2 Saturation 05/30/17 05/31/17 05/31/17 22:59 00:00 09:34 Temperature 37.4 C 37.2 C 37.9 C H Heart Rate [ 75 83 Brachial] Heart Rate [ Supine] Respiratory 22 20 Rate Blood Pressure Blood Pressure 167/64 H 211/82 H [Right Brachial artery] Blood Pressure [Supine] O2 Saturation 94 97 05/31/17 10:15 Temperature 37.7 C H Heart Rate [ 84 Brachial] Heart Rate [ Supine] Respiratory Rate Blood Pressure Blood Pressure 192/71 H [Right Brachial artery] Blood Pressure [Supine] O2 Saturation Oxygen O2 Source Room air I&O (Last 24 Hrs): Intake and Output Totals x24h 05/29/17 05/30/17 05/31/17 23:59 23:59 23:59 Intake Total 1590 2940 Output Total 1 Balance 1590 2939 General: Other (Lethagric but arousable) HEENT: Atraumatic, PERRLA, EOMI, Other (Mucus membranes dry) Neck: Supple, No JVD, No thyromegaly Lymphatic: no adenopathy, axilla node tender (L) Neuro: Non Focal, Other (Lethargic) Cardiovascular: Regular rate, Normal S1, Normal S2, No murmurs Respiratory: Chest non-tender, Rhonchi (Right more than left but bilateral) Abdomen: Normal bowel sounds, Soft, No tenderness, No hepatospenomegaly Extremities: No clubbing, No cyanosis, Normal pulses, Other (Edema of feet) Skin: No rashes, No breakdown, No significant lesion - Results Results: Laboratory Results WBC 9.0 x10^3/uL (4.8-10.8) 05/31/17 05:33 RBC 3.47 10^6/uL (4.20-5.40) L 05/31/17 05:33 Hgb 10.4 g/dL (12.0-16.0) L 05/31/17 05:33 Hct 31.4 % (37.0-47.0) L 05/31/17 05:33 MCV 90.6 fL (81.0-99.0) 05/31/17 05:33 MCH 30.1 pg (27.0-31.0) 05/31/17 05:33 MCHC 33.3 g/dL (32.0-36.0) 05/31/17 05:33 RDW 16.8 % (12.0-15.0) H 05/31/17 05:33 Plt Count 227 10^3/uL (130-450) 05/31/17 05:33 MPV 8.3 fL (7.9-10.8) 05/31/17 05:33 Neut # 7.0 10^3/uL (1.5-6.6) H 05/31/17 05:33 Lymph # 1.0 10^3/uL (1.5-3.5) L 05/31/17 05:33 [place] # 0.5 10^3/uL (0.0-1.0) 05/31/17 05:33 Eos # 0.5 10^3/uL (0.0-0.7) 05/31/17 05:33 Baso # 0.0 10^3/uL (0.0-0.1) 05/31/17 05:33 Absolute Nucleated RBC 0.00 x10^3/uL 05/31/17 05:33 Total Counted 100 05/29/17 08:40 Band Neuts % (Manual) 0 % (0-10) 05/29/17 08:40 Neutrophils # (Manual) 19.5 10^3/uL (1.5-6.6) H 05/29/17 08:40 Lymphocytes # (Manual) 0.6 10^3/uL (1.5-3.5) L 05/29/17 08:40 Monocytes # (Manual) 0.4 10^3/uL (0.0-1.0) 05/29/17 08:40 Nucleated RBCs 0.0 /100WBC 05/31/17 05:33 Differential Comment MANUAL DIFFERENTIAL 05/29/17 08:40 Platelet Estimate NORMAL (130-450,000) (NORMAL) 05/29/17 08:40 Platelet Morphology NORMAL APPEARANCE (NORMAL) 05/29/17 08:40 RBC Morph Micro Appear 2+ ANISOCYTOSIS (NORMAL) 1+ MACROCYTOSIS (NORMAL) 1+ OVALOCYTES (NORMAL) 1+ POIKILOCYTOSIS (NORMAL) 05/29/17 08:40 RBC Morph Micro Appear 2+ ANISOCYTOSIS (NORMAL) 1+ MACROCYTOSIS (NORMAL) 1+ OVALOCYTES (NORMAL) 1+ POIKILOCYTOSIS (NORMAL) 05/29/17 08:40 RBC Morph Micro Appear 2+ ANISOCYTOSIS (NORMAL) 1+ MACROCYTOSIS (NORMAL) 1+ OVALOCYTES (NORMAL) 1+ POIKILOCYTOSIS (NORMAL) 05/29/17 08:40 RBC Morph Micro Appear 2+ ANISOCYTOSIS (NORMAL) 1+ MACROCYTOSIS (NORMAL) 1+ OVALOCYTES (NORMAL) 1+ POIKILOCYTOSIS (NORMAL) 05/29/17 08:40 Sodium 139 mmol/L (135-145) 05/31/17 05:33 Potassium 2.8 mmol/L (3.5-5.0) L 05/31/17 05:33 Chloride 109 mmol/L (101-111) 05/31/17 05:33 Carbon Dioxide 22 mmol/L (21-32) 05/31/17 05:33 Anion Gap 8.0 (6-13) 05/31/17 05:33 BUN 22 mg/dL (6-20) H 05/31/17 05:33 Creatinine 1.4 mg/dL (0.4-1.0) H 05/31/17 05:33 Estimated GFR (MDRD) 36 (>89) L 05/31/17 05:33 Glucose 89 mg/dL (70-100) 05/31/17 05:33 POC Whole Bld Glucose 93 mg/dL (70 - 100) 05/31/17 07:27 Glycated Hemoglobin 6.0 % (4.6-6.2) 05/29/17 09:50 Estim Average Glucose 126 (70-100) H 05/29/17 09:50 Lactic Acid 1.3 mmol/L (0.5-2.2) 05/29/17 08:40 Calcium 8.3 mg/dL (8.5-10.3) L 05/31/17 05:33 Troponin I 0.14 ng/mL (<0.49) 05/29/17 19:54 Urine Color YELLOW 05/29/17 08:20 Urine Clarity CLEAR (CLEAR) 05/29/17 08:20 Urine pH 7.0 PH (5.0-7.5) 05/29/17 08:20 Ur Specific [place] 1.020 (1.002-1.030) 05/29/17 08:20 Urine Protein >=300 mg/dL (NEGATIVE) H 05/29/17 08:20 Urine Glucose (UA) NEGATIVE mg/dL (NEGATIVE) 05/29/17 08:20 Urine Ketones NEGATIVE mg/dL (NEGATIVE) 05/29/17 08:20 Urine Occult Blood SMALL (NEGATIVE) H 05/29/17 08:20 Urine Nitrite NEGATIVE (NEGATIVE) 05/29/17 08:20 Urine Bilirubin NEGATIVE (NEGATIVE) 05/29/17 08:20 Urine Urobilinogen 1 (NORMAL) E.U./dL (NORMAL) 05/29/17 08:20 Ur Leukocyte Esterase NEGATIVE (NEGATIVE) 05/29/17 08:20 Urine RBC 0-5 /HPF (0-5) 05/29/17 08:20 Urine WBC 0-3 /HPF (0-5) 05/29/17 08:20 Ur Squamous Epith Cells FEW Squamous (<= Few) 05/29/17 08:20 Urine Bacteria Few /HPF (None Seen) 05/29/17 08:20 Urine Casts 0-2 Course Granular /LPF 05/29/17 08:20 Ur Microscopic Review INDICATED 05/29/17 08:20 Urine Culture Comments NOT INDICATED 05/29/17 08:20 Last Dose Date UNK 05/29/17 08:40 Last Dose Time UNK 05/29/17 08:40 Digoxin 0.8 ng/mL 05/29/17 08:40
--- NOTE | 2017-05-31 11:52 | PROVIDER PROGRESS NOTE ---
Assessment/Plan - Problem List (1) Sepsis Assessment/Plan: Presented with lethargy and found to have tachycardia, tachypneic, febrile and WBC was 20 K Lactate normal Source appears to be pneumonia WBC down to 9.0 but patient still spiking fevers yesterday Tmax 38.5 so far today Temp elevated but less than 38 Patient still lethargic but easier to arouse On IV cefriaxone and azithro day 3 Blood cultures negative to date Improving slowly (2) CAP (community acquired pneumonia) Conclusion/Plan: Presented with sepsis and CXR showed right lower lobe pneumonia IV ceftriaxone and azithro day 2 IVFs Tylenol for fever Blood negative to date On RA, WBC improved to normal Still lethargic but improving Improving slowly (3) Hypokalemia Conclusion/Plan: K was 3.2 on presentation likely secondary to dehydration as patient had vomiting at home and presented with sepsis secondary to pneumonia IV K riders K improved to 3.6 yesterday today down to 2.8 will give K riders today (4) Encephalopathy acute Conclusion/Plan: Secondary to sepsis Improving (5) Atrial fibrillation Conclusion/Plan: HR controlled not on anticoagulation cOtninue digoxin and metoprolol Stable Qualifiers: Atrial fibrillation type: chronic Qualified Code(s): I48.2 - Chronic atrial fibrillation (6) Diabetes Conclusion/Plan: No on meds at home Given sepsis will control tightly with sliding scale insulin BG well controlled DM diet HbA1C is 6.0 Once sepsis resolves will be able to stop SS inulin Qualifiers: Diabetes mellitus type: type 2 (7) Hypertension Conclusion/Plan: BP stable Continue home meds Controlled Qualifiers: Hypertension type: essential hypertension Qualified Code(s): I10 - Essential (primary) hypertension (8) Acute Kidney Injury Conclusion/Plan: Secondary to sepsis and pre-renal azotemia Avoid nephrotoxic agents IVFs Ict Trainer down from 1.9 to 1.4 Resolving (9) Prophylactic use of low molecular weight heparin for venous thromboembolism (VTE) Conclusion/Plan: Place on lovenox - Current Meds Current Meds: Current Medications Generic Name Dose Route Start Last Admin Trade Name Freq PRN Reason Stop Dose Admin Acetaminophen 650 mg 05/29/17 11:16 05/30/17 21:39 Tylenol PO 650 mg Q4HR PRN Administration Pain 1 to 4 Allopurinol 300 mg 05/30/17 09:00 05/31/17 09:00 Zyloprim PO 300 mg DAILY MANJULA Administration Aspirin 81 mg 05/30/17 09:00 05/31/17 09:00 Ecotrin PO 81 mg DAILY MANJULA Administration Atorvastatin Calcium 20 mg 05/30/17 09:00 05/31/17 09:00 Lipitor PO 20 mg DAILY MANJULA Administration Digoxin 125 mcg 05/30/17 09:00 05/31/17 09:00 Lanoxin PO 125 mcg DAILY MANJULA Administration Enoxaparin Sodium 40 mg 05/30/17 09:00 05/31/17 11:32 Lovenox SUBQ 40 mg DAILY MANJULA Administration Furosemide 20 mg 05/30/17 09:00 05/31/17 09:00 Lasix PO 20 mg DAILY MANJULA Administration Sodium Chloride 1,000 mls @ 100 mls/hr 05/29/17 12:00 05/31/17 01:55 Normal Saline 0.9% IV 100 mls/hr .Q10H MANJULA Administration Azithromycin 500 mg/ Sodium 250 mls @ 250 mls/hr 05/30/17 09:00 05/31/17 11:34 Chloride IV 250 mls/hr DAILY MANJULA Administration Ceftriaxone Sodium 2 gm/ 100 mls @ 200 mls/hr 05/30/17 09:00 05/31/17 09:00 Sodium Chloride IV 200 mls/hr DAILY MANJULA Administration Insulin Aspart 1 - 5 unit 05/29/17 12:00 05/31/17 07:30 Novolog SUBQ Not Given 0800,1200,1700,2100 [facility] Protocol Metoprolol Tartrate 25 mg 05/29/17 17:00 05/31/17 09:00 Lopressor PO 25 mg BID MANJULA Administration Pantoprazole Sodium 40 mg 05/30/17 07:00 05/31/17 09:37 Protonix PO 40 mg QDAC MANJULA Administration Polyethylene Glycol 17 gm 05/30/17 09:00 05/31/17 11:33 Miralax PO Not Given DAILY MANJULA Potassium Chloride 40 meq 05/31/17 09:00 05/31/17 09:00 K-Dur PO 40 meq DAILYWM MANJULA Administration Prazosin HCl 1 mg 05/29/17 17:00 05/31/17 09:00 Minipress PO 1 mg DAILY MANJULA Administration Sodium Chloride 10 ml 05/29/17 14:00 05/31/17 06:18 Normal Saline Flush 0.9% IVP Not Given Q8HR MANJULA - Lab Result Lab results reviewed: Yes Fish Bone Diagrams: 05/31/17 05:33 05/31/17 05:33 - EKG Results EKG Interpreted Independently: Yes - Diagnostic Imaging Results Diagnostic Imaging Results: Final report reviewed - Additional Planning Condition/Complexity: Guarded My Orders: My Active Orders 05/31/17 09:00 Potassium Chlor 10 Meq/100 ml [Potassium Chloride] 100 ml IV Q1H Potassium Chloride [K-Dur] 40 meq PO DAILYWM Plan Discussed with:: Patient Time Spent: 31-60 minutes Subjective - Subjective Patient Reports: Other (Patient is still sleepy but arousable. She denies any complaints but continues to be drowsy. She did have fever last night and has low grade fever this morning.) Nursing Reports: Other (Drowsy) Objective Vital Signs: Vital Signs - 24 hr 05/30/17 05/30/17 05/30/17 12:09 16:27 19:37 Temperature 38.5 C H 37.4 C Heart Rate [ 42 L Brachial] Respiratory 20 Rate Blood Pressure 184/75 H Blood Pressure 160/78 H [Right Brachial artery] O2 Saturation 98 05/30/17 05/30/17 05/30/17 21:33 21:39 22:59 Temperature 38.0 C H 37.4 C Heart Rate [ 80 Brachial] Respiratory Rate Blood Pressure 161/59 H Blood Pressure 161/59 H [Right Brachial artery] O2 Saturation 05/31/17 05/31/17 05/31/17 00:00 09:00 09:34 Temperature 37.2 C 37.9 C H Heart Rate [ 75 83 Brachial] Respiratory 22 20 Rate Blood Pressure 175/65 H Blood Pressure 167/64 H 211/82 H [Right Brachial artery] O2 Saturation 94 97 05/31/17 05/31/17 10:15 11:32 Temperature 37.7 C H Heart Rate [ 84 Brachial] Respiratory Rate Blood Pressure Blood Pressure 192/71 H 155/70 H [Right Brachial artery] O2 Saturation Oxygen O2 Source Room air I&O (Last 24 Hrs): Intake and Output Totals x24h 05/29/17 05/30/17 05/31/17 23:59 23:59 23:59 Intake Total 1590 2940 Output Total 1 Balance 1590 2939 General: Other (Drowsy but arousable, answers questions appropriately, follow commands) HEENT: Atraumatic, PERRLA, EOMI, Other (dry mucus membranes) Neck: Supple, No JVD, No thyromegaly, +2 carotid pulse wo bruit, No LAD Lymphatic: no adenopathy Neuro: Other (Drowsy) Cardiovascular: Normal S1, Normal S2, No murmurs, Other (Irregular) Respiratory: Chest non-tender, No respiratory distress, Rhonchi (Right lower lobe) Abdomen: Normal bowel sounds, Soft, No tenderness, No hepatospenomegaly Extremities: No clubbing, No cyanosis, Normal pulses, Other (Edema of feet) Skin: No rashes, No breakdown - Results Results: Laboratory Results WBC 9.0 x10^3/uL (4.8-10.8) 05/31/17 05:33 RBC 3.47 10^6/uL (4.20-5.40) L 05/31/17 05:33 Hgb 10.4 g/dL (12.0-16.0) L 05/31/17 05:33 Hct 31.4 % (37.0-47.0) L 05/31/17 05:33 MCV 90.6 fL (81.0-99.0) 05/31/17 05:33 MCH 30.1 pg (27.0-31.0) 05/31/17 05:33 MCHC 33.3 g/dL (32.0-36.0) 05/31/17 05:33 RDW 16.8 % (12.0-15.0) H 05/31/17 05:33 Plt Count 227 10^3/uL (130-450) 05/31/17 05:33 MPV 8.3 fL (7.9-10.8) 05/31/17 05:33 Neut # 7.0 10^3/uL (1.5-6.6) H 05/31/17 05:33 Lymph # 1.0 10^3/uL (1.5-3.5) L 05/31/17 05:33 [place] # 0.5 10^3/uL (0.0-1.0) 05/31/17 05:33 Eos # 0.5 10^3/uL (0.0-0.7) 05/31/17 05:33 Baso # 0.0 10^3/uL (0.0-0.1) 05/31/17 05:33 Absolute Nucleated RBC 0.00 x10^3/uL 05/31/17 05:33 Total Counted 100 05/29/17 08:40 Band Neuts % (Manual) 0 % (0-10) 05/29/17 08:40 Neutrophils # (Manual) 19.5 10^3/uL (1.5-6.6) H 05/29/17 08:40 Lymphocytes # (Manual) 0.6 10^3/uL (1.5-3.5) L 05/29/17 08:40 Monocytes # (Manual) 0.4 10^3/uL (0.0-1.0) 05/29/17 08:40 Nucleated RBCs 0.0 /100WBC 05/31/17 05:33 Differential Comment MANUAL DIFFERENTIAL 05/29/17 08:40 Platelet Estimate NORMAL (130-450,000) (NORMAL) 05/29/17 08:40 Platelet Morphology NORMAL APPEARANCE (NORMAL) 05/29/17 08:40 RBC Morph Micro Appear 2+ ANISOCYTOSIS (NORMAL) 1+ MACROCYTOSIS (NORMAL) 1+ OVALOCYTES (NORMAL) 1+ POIKILOCYTOSIS (NORMAL) 05/29/17 08:40 RBC Morph Micro Appear 2+ ANISOCYTOSIS (NORMAL) 1+ MACROCYTOSIS (NORMAL) 1+ OVALOCYTES (NORMAL) 1+ POIKILOCYTOSIS (NORMAL) 05/29/17 08:40 RBC Morph Micro Appear 2+ ANISOCYTOSIS (NORMAL) 1+ MACROCYTOSIS (NORMAL) 1+ OVALOCYTES (NORMAL) 1+ POIKILOCYTOSIS (NORMAL) 05/29/17 08:40 RBC Morph Micro Appear 2+ ANISOCYTOSIS (NORMAL) 1+ MACROCYTOSIS (NORMAL) 1+ OVALOCYTES (NORMAL) 1+ POIKILOCYTOSIS (NORMAL) 05/29/17 08:40 Sodium 139 mmol/L (135-145) 05/31/17 05:33 Potassium 2.8 mmol/L (3.5-5.0) L 05/31/17 05:33 Chloride 109 mmol/L (101-111) 05/31/17 05:33 Carbon Dioxide 22 mmol/L (21-32) 05/31/17 05:33 Anion Gap 8.0 (6-13) 05/31/17 05:33 BUN 22 mg/dL (6-20) H 05/31/17 05:33 Creatinine 1.4 mg/dL (0.4-1.0) H 05/31/17 05:33 Estimated GFR (MDRD) 36 (>89) L 05/31/17 05:33 Glucose 89 mg/dL (70-100) 05/31/17 05:33 POC Whole Bld Glucose 121 mg/dL (70 - 100) H 05/31/17 11:14 Glycated Hemoglobin 6.0 % (4.6-6.2) 05/29/17 09:50 Estim Average Glucose 126 (70-100) H 05/29/17 09:50 Lactic Acid 1.3 mmol/L (0.5-2.2) 05/29/17 08:40 Calcium 8.3 mg/dL (8.5-10.3) L 05/31/17 05:33 Troponin I 0.14 ng/mL (<0.49) 05/29/17 19:54 Urine Color YELLOW 05/29/17 08:20 Urine Clarity CLEAR (CLEAR) 05/29/17 08:20 Urine pH 7.0 PH (5.0-7.5) 05/29/17 08:20 Ur Specific [place] 1.020 (1.002-1.030) 05/29/17 08:20 Urine Protein >=300 mg/dL (NEGATIVE) H 05/29/17 08:20 Urine Glucose (UA) NEGATIVE mg/dL (NEGATIVE) 05/29/17 08:20 Urine Ketones NEGATIVE mg/dL (NEGATIVE) 05/29/17 08:20 Urine Occult Blood SMALL (NEGATIVE) H 05/29/17 08:20 Urine Nitrite NEGATIVE (NEGATIVE) 05/29/17 08:20 Urine Bilirubin NEGATIVE (NEGATIVE) 05/29/17 08:20 Urine Urobilinogen 1 (NORMAL) E.U./dL (NORMAL) 05/29/17 08:20 Ur Leukocyte Esterase NEGATIVE (NEGATIVE) 05/29/17 08:20 Urine RBC 0-5 /HPF (0-5) 05/29/17 08:20 Urine WBC 0-3 /HPF (0-5) 05/29/17 08:20 Ur Squamous Epith Cells FEW Squamous (<= Few) 05/29/17 08:20 Urine Bacteria Few /HPF (None Seen) 05/29/17 08:20 Urine Casts 0-2 Course Granular /LPF 05/29/17 08:20 Ur Microscopic Review INDICATED 05/29/17 08:20 Urine Culture Comments NOT INDICATED 05/29/17 08:20 Last Dose Date UNK 05/29/17 08:40 Last Dose Time UNK 05/29/17 08:40 Digoxin 0.8 ng/mL 05/29/17 08:40
[2017-05-31] MEDS: POTASSIUM CHLOR 10 MEQ/100 ML 100 ML IV SCH ×4 (13:48→17:05)
[2017-06-01] MEDS: SODIUM CHLORIDE 0.9% 1,000 ML IV SCH (02:52)
[2017-06-01 06:02] LABS: BASOPHILS % (AUTO) 0.3 %; EOSINOPHILS # (AUTO) 0.4 10^3/uL (0.0-0.7); EOSINOPHILS % (AUTO) 4.6 %; HCT - HEMATOCRIT 31.2 % (37.0-47.0); HGB - HEMOGLOBIN 10.3 g/dL (12.0-16.0); LYMPHOCYTES # (AUTO) 1.4 10^3/uL (1.5-3.5); LYMPHOCYTES % (AUTO) 17.4 %; MEAN CORPUSCULAR HGB CONC 33.1 g/dL (32.0-36.0); MEAN CORPUSCULAR VOLUME 90.7 fL (81.0-99.0); MEAN PLATELET VOLUME 7.7 fL (7.9-10.8); MONOCYTES # (AUTO) 0.5 10^3/uL (0.0-1.0); MONOCYTES % (AUTO) 6.2 %; NEUTROPHILS # (AUTO) 5.7 10^3/uL (1.5-6.6); NEUTROPHILS % (AUTO) 71.5 %; RED BLOOD COUNT 3.44 10^6/uL (4.20-5.40); RED CELL DISTRIBUTION WIDTH 16.5 % (12.0-15.0); UNCORRECTED WHITE BLOOD COUNT 7.9 x10^3/uL; WHITE BLOOD COUNT 7.9 x10^3/uL (4.8-10.8)
[2017-06-01 06:10] LABS: CALCIUM 8.5 mg/dL (8.5-10.3); CREATININE 1.5 mg/dL (0.4-1.0); POTASSIUM 3.3 mmol/L (3.5-5.0)
[2017-06-01] MEDS: SODIUM CHLORIDE FLUSH 0.9% 10 ML SYRINGE IVP SCH ×2 (06:19→11:46)
[2017-06-01] MEDS: PANTOPRAZOLE 40 MG TABLET PO SCH (06:26)
[2017-06-01] MEDS: INSULIN ASPART 300 UNIT/3 ML PEN SUBQ SCH ×2 (07:33→11:24)
[2017-06-01 07:53] VITALS: BP 165/72
[2017-06-01] MEDS ORDERED: METOPROLOL TARTRATE 50 MG TABLET PO SCH (08:15)
[2017-06-01] MEDS ORDERED: POTASSIUM CHLORIDE 20 MEQ TABLET PO ONE (08:15)
[2017-06-01] MEDS: cefTRIAXone 2 GM in SODIUM CHLORIDE 0.9% MINIBAG 100 ML IV SCH (08:25)
[2017-06-01] MEDS: POLYETHYLENE GLYCOL 3350 17 GM PACKET PO SCH (08:26)
[2017-06-01] MEDS: PRAZOSIN 1 MG CAPSULE PO SCH (08:30)
[2017-06-01] MEDS: ATORVASTATIN 10 MG TABLET PO SCH (08:30)
[2017-06-01] MEDS: POTASSIUM CHLORIDE 20 MEQ TABLET PO SCH (08:30)
[2017-06-01] MEDS: ASPIRIN EC 81 MG TABLET PO SCH (08:30)
[2017-06-01] MEDS: DIGOXIN 125 MCG TABLET PO SCH (08:30)
[2017-06-01] MEDS: FUROSEMIDE 20 MG TABLET PO SCH (08:30)
[2017-06-01] MEDS: ALLOPURINOL 100 MG TABLET PO SCH (08:35)
[2017-06-01] MEDS: ENOXAPARIN 40 MG/0.4 ML SYRINGE SUBQ SCH (08:51)
[2017-06-01] MEDS: AZITHROMYCIN INJ 500 MG in SODIUM CHLORIDE 0.9% 250 ML IV SCH (08:53)
--- NOTE | 2017-06-01 10:36 | Discharge Plan ---
Discharge Plan Disposition: [facility] DC/Xfer Condition: Fair Prescriptions: Levofloxacin [Levaquin] 500 mg PO DAILY #5 tablet Diet: Regular Activity Restrictions: Activity as Tolerated Shower Restrictions: No Driving Restrictions: No Assistance Devices: Wheelchair, Walker Weight Bearing: Full Weight Additional Instructions or Follow Up instructions: [facility] presenting with sepsis from pneumonia. She is improved and being sent back to [facility] with oral antibiotic for 5 more days. No Smoking: If you smoke, Please STOP! Call for help.
--- NOTE | 2017-06-01 10:57 | DISCHARGE SUMMARY ---
Discharge Summary Admit Date: 05/29/17 Discharge Date: 06/01/17 Discharging Provider: Erlin Vincent MD Primary Care Provider: Nini Frias MD Code Status: Do Not Attempt Resuscitation Condition at Discharge: Fair Discharge Disposition: 03 SNF DC/Xfer Discharge Facility Name: [facility] - DIAGNOSES Admission Diagnoses: 1. Sepsis 2. Community acquired pneumonia 3. Hypokalemia 4. Acute encephalopathy 5. Atrial fibrillation 6. Diabetes 7. Hypertension 8.. Acute kidney injury 9. Prophylactic use of low molecular weight heparin Discharge Diagnoses with Status of Each Condition: 1. Sepsis 2. Community acquired pneumonia 3. Hypokalemia 4. Acute encephalopathy 5. Atrial fibrillation 6. Diabetes 7. Hypertension 8.. Acute kidney injury 9. Prophylactic use of low molecular weight heparin - HPI History of Present Illness: Patient is an 87-year-old female with a past medical history significant for diabetes, CTD stage III, asthma, hyperlipidemia, dementia, vertigo, GERD and atrial fibrillation not on Coumadin who presented to the emergency with lethargy. According to the patient's family the patient had not been feeling well for about 3 days. He states that she lives at [facility] and for the past 3 days the patient has become increasingly confused. She has been spiking fevers at [facility]. She has become less and less active and increasingly weak. The family became very concerned as the patient was very somnolent this morning and had not gotten out of bed. The patient states that the altered mental status and lethargy were waxing and waning over the last 3 days but today she was persistently somnolent. The patient was seen by a physician yesterday in the group home and was found to have a leukocytosis once labs were received the patient was told to come into the emergency department. According to the family the patient has not been having any recent cough, shortness of breath, chest pain or any urinary symptoms. I was unable to get a history from the patient secondary to patient being lethargic and being unable to provide any history. On presentation to the emergency department the patient was febrile with a temperature of 39.6, tachycardic with heart rate of 96, tachypneic with respiratory rate of 22, she was lethargic and had a leukocytosis of 20.5. The patient underwent a chest x-ray which showed a right lower lobe airspace disease. The patient was admitted to the [facility] for sepsis likely secondary to pneumonia. - HOSPITAL COURSE Hospital Course: (1) Sepsis Assessment/Plan: Presented with lethargy and found to have tachycardia, tachypneic, febrile and WBC was 20 K Lactate normal Source appears to be pneumonia WBC down to 7.9 at discharge Patient afebrile for greater than 24 hours at discharge On room air Back to baseline mental status Treated with ceftriaxone and azithro x3 days and discharged on levaquin x5 days Patient to return to [facility] to complete antibioitcs Resolved (2) CAP (community acquired pneumonia) Conclusion/Plan: Presented with sepsis and CXR showed right lower lobe pneumonia Could be from possible aspiration Treated with ceftriaxone and azithro x3 days and discharged back to [facility] with 5 days of levaquin Patient on room air at discharge and mental status back to baseline Resolving Recommend swallow eval at [facility] (3) Hypokalemia Conclusion/Plan: K replaced daily Continued on PO potassium daily at discharge (4) Encephalopathy acute Conclusion/Plan: Secondary to sepsis Resolved by discharge (5) Atrial fibrillation Conclusion/Plan: HR controlled not on anticoagulation Cotninue digoxin and metoprolol Stable Qualifiers: Atrial fibrillation type: chronic Qualified Code(s): I48.2 - Chronic atrial fibrillation (6) Diabetes Conclusion/Plan: HbA1C is 6.0 Not on any meds at home Treated with SS insulin while hospitalized for sepsis but will go back to regular diet and no meds at discharge Qualifiers: Diabetes mellitus type: type 2 (7) Hypertension Conclusion/Plan: BP was elevated Patients dose of metoprolol was increased to 50 mg BID Qualifiers: Hypertension type: essential hypertension Qualified Code(s): I10 - Essential (primary) hypertension (8) Acute Kidney Injury Conclusion/Plan: Secondary to sepsis and pre-renal azotemia Was given IVFs with improvement in creatinine from 1.9 to 1.5 Resolving (9) Prophylactic use of low molecular weight heparin for venous thromboembolism (VTE) Conclusion/Plan: Was on lovenox while hospitalized - ALLERGIES Allergies/Adverse Reactions: Allergies Allergy/AdvReac Type Severity Reaction Status Date / Time No Known Drug Allergies Allergy Verified 06/25/13 11:43 - MEDICATIONS Home Medications: Ambulatory Orders Medication Instructions Recorded Confirmed Allopurinol 300 mg PO DAILY 06/25/13 05/29/17 Aspirin [Aspir 81] 81 mg PO DAILY 06/25/13 05/29/17 Cetirizine [ZyrTEC] 10 mg PO ONCE 06/25/13 05/29/17 Furosemide 20 mg PO DAILY 06/25/13 05/29/17 Meclizine [Antivert] 12.5 mg PO Q6H 06/25/13 05/29/17 Potassium Chloride [Klor-Con] 20 meq PO DAILY 06/25/13 05/29/17 Ranitidine HCl 150 mg PO DAILY 06/25/13 05/29/17 Atorvastatin [Lipitor] 20 mg PO DAILY 05/29/17 05/29/17 Digoxin [Lanoxin] 125 mcg PO DAILY 05/29/17 05/29/17 Metoprolol Tartrate 25 mg PO BID 05/29/17 05/29/17 Polyethylene Glycol 3350 [Miralax] 17 g PO DAILY 05/29/17 05/29/17 Prazosin [Minipress] 1 mg PO DAILY 05/29/17 05/29/17 Levofloxacin [Levaquin] 500 mg PO DAILY #5 tablet 06/01/17 - PHYSICAL EXAM AT DISCHARGE General Appearance: positive: No acute distress, Alert, Other (Demented ) Eyes Bilateral: positive: Normal inspection, PERRL, EOMI, No lid inflammation, Conjunctivae nml, No scleral icterus ENT: positive: ENT inspection nml, Pharynx nml, No signs of dehydration. negative: Purulent nasal drainage, Pharyngeal erythema, Oral lesions Neck: positive: Nml inspection, Thyroid nml, No JVD, Trachea midline. negative : Thyromegaly, Tracheal deviation Respiratory: positive: Chest non-tender, No respiratory distress, Rhonchi ( Right lower lung Improved) Cardiovascular: positive: No murmur, No gallop, Irregularly irregular Peripheral Pulses: positive: 2+ Abdomen: positive: Non-tender, No organomegaly, Nml bowel sounds, No distention. negative: Guarding, Rebound, Hepatomegaly Back: positive: Nml inspection Skin: positive: Color nml, No rash, Warm, Dry Extremities: positive: Non-tender, Full ROM, Nml appearance, Pedal edema (Mild ) Neurologic/Psychiatric: positive: CN's nml (2-12), Motor nml, Sensation nml, Mood/affect nml, Disoriented to time - LABS Result Diagrams: 06/01/17 05:39 06/01/17 05:39 Other Lab Results: Laboratory Results WBC 7.9 x10^3/uL (4.8-10.8) 06/01/17 05:39 RBC 3.44 10^6/uL (4.20-5.40) L 06/01/17 05:39 Hgb 10.3 g/dL (12.0-16.0) L 06/01/17 05:39 Hct 31.2 % (37.0-47.0) L 06/01/17 05:39 MCV 90.7 fL (81.0-99.0) 06/01/17 05:39 MCH 30.0 pg (27.0-31.0) 06/01/17 05:39 MCHC 33.1 g/dL (32.0-36.0) 06/01/17 05:39 RDW 16.5 % (12.0-15.0) H 06/01/17 05:39 Plt Count 248 10^3/uL (130-450) 06/01/17 05:39 MPV 7.7 fL (7.9-10.8) L 06/01/17 05:39 Neut # 5.7 10^3/uL (1.5-6.6) 06/01/17 05:39 Lymph # 1.4 10^3/uL (1.5-3.5) L 06/01/17 05:39 [place] # 0.5 10^3/uL (0.0-1.0) 06/01/17 05:39 Eos # 0.4 10^3/uL (0.0-0.7) 06/01/17 05:39 Baso # 0.0 10^3/uL (0.0-0.1) 06/01/17 05:39 Absolute Nucleated RBC 0.00 x10^3/uL 06/01/17 05:39 Total Counted 100 05/29/17 08:40 Band Neuts % (Manual) 0 % (0-10) 05/29/17 08:40 Neutrophils # (Manual) 19.5 10^3/uL (1.5-6.6) H 05/29/17 08:40 Lymphocytes # (Manual) 0.6 10^3/uL (1.5-3.5) L 05/29/17 08:40 Monocytes # (Manual) 0.4 10^3/uL (0.0-1.0) 05/29/17 08:40 Nucleated RBCs 0.0 /100WBC 06/01/17 05:39 Differential Comment MANUAL DIFFERENTIAL 05/29/17 08:40 Platelet Estimate NORMAL (130-450,000) (NORMAL) 05/29/17 08:40 Platelet Morphology NORMAL APPEARANCE (NORMAL) 05/29/17 08:40 RBC Morph Micro Appear 2+ ANISOCYTOSIS (NORMAL) 1+ MACROCYTOSIS (NORMAL) 1+ OVALOCYTES (NORMAL) 1+ POIKILOCYTOSIS (NORMAL) 05/29/17 08:40 RBC Morph Micro Appear 2+ ANISOCYTOSIS (NORMAL) 1+ MACROCYTOSIS (NORMAL) 1+ OVALOCYTES (NORMAL) 1+ POIKILOCYTOSIS (NORMAL) 05/29/17 08:40 RBC Morph Micro Appear 2+ ANISOCYTOSIS (NORMAL) 1+ MACROCYTOSIS (NORMAL) 1+ OVALOCYTES (NORMAL) 1+ POIKILOCYTOSIS (NORMAL) 05/29/17 08:40 RBC Morph Micro Appear 2+ ANISOCYTOSIS (NORMAL) 1+ MACROCYTOSIS (NORMAL) 1+ OVALOCYTES (NORMAL) 1+ POIKILOCYTOSIS (NORMAL) 05/29/17 08:40 Sodium 138 mmol/L (135-145) 06/01/17 05:39 Potassium 3.3 mmol/L (3.5-5.0) L 06/01/17 05:39 Chloride 106 mmol/L (101-111) 06/01/17 05:39 Carbon Dioxide 23 mmol/L (21-32) 06/01/17 05:39 Anion Gap 9.0 (6-13) 06/01/17 05:39 BUN 18 mg/dL (6-20) 06/01/17 05:39 Creatinine 1.5 mg/dL (0.4-1.0) H 06/01/17 05:39 Estimated GFR (MDRD) 33 (>89) L 06/01/17 05:39 Glucose 96 mg/dL (70-100) 06/01/17 05:39 POC Whole Bld Glucose 90 mg/dL (70 - 100) 06/01/17 07:18 Glycated Hemoglobin 6.0 % (4.6-6.2) 05/29/17 09:50 Estim Average Glucose 126 (70-100) H 05/29/17 09:50 Lactic Acid 1.3 mmol/L (0.5-2.2) 05/29/17 08:40 Calcium 8.5 mg/dL (8.5-10.3) 06/01/17 05:39 Troponin I 0.14 ng/mL (<0.49) 05/29/17 19:54 Urine Color YELLOW 05/29/17 08:20 Urine Clarity CLEAR (CLEAR) 05/29/17 08:20 Urine pH 7.0 PH (5.0-7.5) 05/29/17 08:20 Ur Specific [place] 1.020 (1.002-1.030) 05/29/17 08:20 Urine Protein >=300 mg/dL (NEGATIVE) H 05/29/17 08:20 Urine Glucose (UA) NEGATIVE mg/dL (NEGATIVE) 05/29/17 08:20 Urine Ketones NEGATIVE mg/dL (NEGATIVE) 05/29/17 08:20 Urine Occult Blood SMALL (NEGATIVE) H 05/29/17 08:20 Urine Nitrite NEGATIVE (NEGATIVE) 05/29/17 08:20 Urine Bilirubin NEGATIVE (NEGATIVE) 05/29/17 08:20 Urine Urobilinogen 1 (NORMAL) E.U./dL (NORMAL) 05/29/17 08:20 Ur Leukocyte Esterase NEGATIVE (NEGATIVE) 05/29/17 08:20 Urine RBC 0-5 /HPF (0-5) 05/29/17 08:20 Urine WBC 0-3 /HPF (0-5) 05/29/17 08:20 Ur Squamous Epith Cells FEW Squamous (<= Few) 05/29/17 08:20 Urine Bacteria Few /HPF (None Seen) 05/29/17 08:20 Urine Casts 0-2 Course Granular /LPF 05/29/17 08:20 Ur Microscopic Review INDICATED 05/29/17 08:20 Urine Culture Comments NOT INDICATED 05/29/17 08:20 Last Dose Date UNK 05/29/17 08:40 Last Dose Time UNK 05/29/17 08:40 Digoxin 0.8 ng/mL 05/29/17 08:40 - DIAGNOSTIC IMAGING Diagnostic Imaging Results: Final report reviewed Diagnostic Imaging Results Comments: Chest x-ray Impression: Right lower lobe airspace disease - FOLLOW UP Follow Up: Patient presented with sepsis secondary to pneumonia. She was much improved at discharge. Discharged on PO antibiotics back to her residence at [facility]. She will continue antibiotics for 5 more days and then follow up with her PCP. - TIME SPENT Time Spent in Discharge (Minutes): 45
== END 2017-06-01 13:05 | DRG 871 ==
LOC: EDUNIT# → ED 08:06 → MS2 11:17
PROVIDERS: ADMIT Internal Medicine; ATTEND Internal Medicine
DX: A41.9 Sepsis, unspecified organism (principal); J18.9 Pneumonia, unspecified organism; G93.41 Metabolic encephalopathy; N18.9 Chronic kidney disease, unspecified; Z86.79 Personal history of other diseases of the circulatory system; N17.9 Acute kidney failure, unspecified; I11.0 Hypertensive heart disease with heart failure; I13.0 Hypertensive heart and chronic kidney disease with heart failure and stage 1 through stage 4 chronic kidney disease, or unspecified chronic kidney disease; Z79.899 Other long term (current) drug therapy; M10.9 Gout, unspecified; R65.20 Severe sepsis without septic shock; E87.6 Hypokalemia; E86.0 Dehydration; I48.2 Chronic atrial fibrillation; E11.22 Type 2 diabetes mellitus with diabetic chronic kidney disease; N18.3 Chronic kidney disease, stage 3 (moderate); I50.9 Heart failure, unspecified; J45.909 Unspecified asthma, uncomplicated; E78.5 Hyperlipidemia, unspecified; F03.90 Unspecified dementia, unspecified severity, without behavioral disturbance, psychotic disturbance, mood disturbance, and anxiety; K21.9 Gastro-esophageal reflux disease without esophagitis; Z66 Do not resuscitate; Z79.82 Long term (current) use of aspirin; Z87.891 Personal history of nicotine dependence
CPT/HCPCS: 36415; 51701; 71010; 80048; 80162; 81001; 81003; 83036; 83605; 84484; 85025; 87040; 87086; 93005; 96361; 96365; 96367; 96375; 99284; 99285

== ENCOUNTER 2017-06-08 08:00 | Outpatient (CLI) | payer MEDICAID, MEDICARE, OTHER ==
[2017-06-08 21:01] LABS: BUN - BLOOD UREA NITROGEN 24 mg/dL (6-20); CALCIUM 8.6 mg/dL (8.5-10.3); CARBON DIOXIDE - CO2 26 mmol/L (21-32); CHLORIDE 103 mmol/L (101-111); CREATININE 1.8 mg/dL (0.4-1.0); GFR - MDRD 27 (>89); GLUCOSE 103 mg/dL (70-100); POTASSIUM 4.6 mmol/L (3.5-5.0); SODIUM 137 mmol/L (135-145)
== END 2017-06-08 08:01 | disposition home or self-care (01) ==
LOC: LAB.R 08:00
PROVIDERS: ATTEND Internal Medicine
DX: N18.9 Chronic kidney disease, unspecified (principal); I50.9 Heart failure, unspecified
CPT/HCPCS: 80048; 80162

== ENCOUNTER 2017-07-09 15:20 | Outpatient (CLI) | payer MEDICARE, MEDICAID ==
[2017-07-09 17:08] LABS: BUN - BLOOD UREA NITROGEN 30 mg/dL (6-20); CALCIUM 8.9 mg/dL (8.5-10.3); CARBON DIOXIDE - CO2 26 mmol/L (21-32); CHLORIDE 102 mmol/L (101-111); CREATININE 1.9 mg/dL (0.4-1.0); GFR - MDRD 25 (>89); GLUCOSE 96 mg/dL (70-100); POTASSIUM 4.3 mmol/L (3.5-5.0); SODIUM 137 mmol/L (135-145)
== END 2017-07-09 15:21 | disposition home or self-care (01) ==
LOC: LAB.R 15:20
PROVIDERS: ATTEND Internal Medicine
DX: R79.89 Other specified abnormal findings of blood chemistry (principal); T46.0X1A Poisoning by cardiac-stimulant glycosides and drugs of similar action, accidental (unintentional), initial encounter
CPT/HCPCS: 80048; 80162

== ENCOUNTER 2017-08-09 16:25 | Outpatient (CLI) | payer MEDICARE, MEDICAID ==
[2017-08-09 18:27] LABS: BUN - BLOOD UREA NITROGEN 27 mg/dL (6-20); CALCIUM 9.6 mg/dL (8.5-10.3); CARBON DIOXIDE - CO2 25 mmol/L (21-32); CHLORIDE 99 mmol/L (101-111); CREATININE 1.8 mg/dL (0.4-1.0); GFR - MDRD 27 (>89); GLUCOSE 170 mg/dL (70-100); SODIUM 138 mmol/L (135-145)
[2017-08-09 18:43] LABS: HEMOGLOBIN A1C 0.51 g/dL
== END 2017-08-09 16:26 | disposition home or self-care (01) ==
LOC: LAB.R 16:25
DX: F32.9 Major depressive disorder, single episode, unspecified (principal); I50.1 Left ventricular failure, unspecified; E08.8 Diabetes mellitus due to underlying condition with unspecified complications
CPT/HCPCS: 80048; 80162; 83036

== ENCOUNTER 2017-09-04 08:00 | Outpatient (CLI) | payer MEDICARE, MEDICAID ==
[2017-09-05 01:55] LABS: BUN - BLOOD UREA NITROGEN 35 mg/dL (6-20); CALCIUM 9.1 mg/dL (8.5-10.3); CARBON DIOXIDE - CO2 24 mmol/L (21-32); CHLORIDE 97 mmol/L (101-111); GFR - MDRD 24 (>89); GLUCOSE 208 mg/dL (70-100); SODIUM 135 mmol/L (135-145)
== END 2017-09-04 23:59 | disposition home or self-care (01) ==
LOC: LAB.R 08:00
DX: D64.9 Anemia, unspecified (principal); Z51.81 Encounter for therapeutic drug level monitoring
CPT/HCPCS: 80048; 80162

== ENCOUNTER 2017-09-07 16:00 | Outpatient (CLI) | payer MEDICARE, MEDICAID ==
[2017-09-07 23:20] LABS: BASOPHILS % (AUTO) 0.6 %; EOSINOPHILS # (AUTO) 0.9 10^3/uL (0.0-0.7); EOSINOPHILS % (AUTO) 10.9 %; HCT - HEMATOCRIT 35.8 % (37.0-47.0); HGB - HEMOGLOBIN 11.7 g/dL (12.0-16.0); LYMPHOCYTES # (AUTO) 2.2 10^3/uL (1.5-3.5); LYMPHOCYTES % (AUTO) 26.5 %; MEAN CORPUSCULAR HEMOGLOBIN 29.9 pg (27.0-31.0); MEAN CORPUSCULAR HGB CONC 32.8 g/dL (32.0-36.0); MEAN CORPUSCULAR VOLUME 91.1 fL (81.0-99.0); MEAN PLATELET VOLUME 8.1 fL (7.9-10.8); MONOCYTES # (AUTO) 0.7 10^3/uL (0.0-1.0); NEUTROPHILS # (AUTO) 4.4 10^3/uL (1.5-6.6); RED BLOOD COUNT 3.93 10^6/uL (4.20-5.40); RED CELL DISTRIBUTION WIDTH 15.6 % (12.0-15.0); UNCORRECTED WHITE BLOOD COUNT 8.3 x10^3/uL; WHITE BLOOD COUNT 8.3 x10^3/uL (4.8-10.8)
[2017-09-07 23:28] LABS: ALBUMIN/GLOBULIN RATIO 1.1 (1.0-2.2); BILIRUBIN,TOTAL 0.4 mg/dL (0.2-1.0); POTASSIUM 4.1 mmol/L (3.5-5.0); TOTAL PROTEIN 7.4 g/dL (6.7-8.2)
[2017-09-07 23:44] LABS: THYROID STIMULATING HORMONE 2.09 uIU/mL (0.34-5.60)
== END 2017-09-07 16:01 | disposition home or self-care (01) ==
LOC: LAB.R 16:00
DX: R94.6 Abnormal results of thyroid function studies (principal); R79.9 Abnormal finding of blood chemistry, unspecified
CPT/HCPCS: 80053; 84439; 84443; 85025

== ENCOUNTER 2017-10-08 08:00 | Outpatient (CLI) | payer MEDICARE, MEDICAID ==
[2017-10-08 17:00] LABS: ALBUMIN 3.9 g/dL (3.2-5.5); ALBUMIN/GLOBULIN RATIO 1.1 (1.0-2.2); ALKALINE PHOSPHATASE 105 IU/L (42-121); ALT ALANINE AMINOTRANSFERASE 11 IU/L (10-60); AST ASPARTATE AMINOTRANSFERASE 18 IU/L (10-42); BILIRUBIN,TOTAL 0.3 mg/dL (0.2-1.0); BUN - BLOOD UREA NITROGEN 33 mg/dL (6-20); CALCIUM 9.3 mg/dL (8.5-10.3); CARBON DIOXIDE - CO2 24 mmol/L (21-32); CHLORIDE 100 mmol/L (101-111); GFR - MDRD 24 (>89); GLUCOSE 176 mg/dL (70-100); SODIUM 136 mmol/L (135-145); TOTAL PROTEIN 7.5 g/dL (6.7-8.2)
== END 2017-10-08 23:59 | disposition home or self-care (01) ==
LOC: LAB.R 08:00
DX: I50.9 Heart failure, unspecified (principal); Z51.81 Encounter for therapeutic drug level monitoring; Z79.899 Other long term (current) drug therapy
CPT/HCPCS: 80053; 80162

== ENCOUNTER 2017-10-18 08:00 | Outpatient (CLI) | payer MEDICARE, MEDICAID ==
[2017-10-18 14:24] LABS: BASOPHILS # (AUTO) 0.1 10^3/uL (0.0-0.1); BASOPHILS % (AUTO) 0.6 %; EOSINOPHILS # (AUTO) 0.6 10^3/uL (0.0-0.7); EOSINOPHILS % (AUTO) 6.3 %; HGB - HEMOGLOBIN 11.6 g/dL (12.0-16.0); LYMPHOCYTES # (AUTO) 1.9 10^3/uL (1.5-3.5); LYMPHOCYTES % (AUTO) 19.7 %; MEAN CORPUSCULAR HEMOGLOBIN 30.9 pg (27.0-31.0); MEAN CORPUSCULAR VOLUME 90.8 fL (81.0-99.0); MONOCYTES # (AUTO) 0.4 10^3/uL (0.0-1.0); MONOCYTES % (AUTO) 4.5 %; NEUTROPHILS # (AUTO) 6.8 10^3/uL (1.5-6.6); NEUTROPHILS % (AUTO) 68.9 %; PLT - PLATELET COUNT 270 10^3/uL (130-450); RED BLOOD COUNT 3.74 10^6/uL (4.20-5.40); RED CELL DISTRIBUTION WIDTH 15.3 % (12.0-15.0); WHITE BLOOD COUNT 9.9 x10^3/uL (4.8-10.8)
[2017-10-18 14:35] LABS: ALBUMIN/GLOBULIN RATIO 1.1 (1.0-2.2); BILIRUBIN,TOTAL 0.5 mg/dL (0.2-1.0); CALCIUM 9.5 mg/dL (8.5-10.3); CREATININE 1.9 mg/dL (0.4-1.0); TOTAL PROTEIN 7.5 g/dL (6.7-8.2)
[2017-10-18 14:47] LABS: HB2 TOTAL 11.9 g/dL; HEMOGLOBIN A1C 0.51 g/dL; HEMOGLOBIN A1C % 6.1 % (4.6-6.2)
== END 2017-10-18 08:01 ==
LOC: LAB.R 08:00
DX: I50.9 Heart failure, unspecified (principal); E11.9 Type 2 diabetes mellitus without complications; Q66.7 Congenital pes cavus; R82.99 Other abnormal findings in urine
CPT/HCPCS: 80053; 81001; 81003; 83036; 84443; 85025; 87086

== ENCOUNTER 2017-10-18 19:15 | Outpatient (CLI) | payer MEDICARE, MEDICAID ==
[2017-10-19 00:32] LABS: BILIRUBIN,URINE NEGATIVE (NEGATIVE); GLUCOSE, URINE (UA) NEGATIVE (NEGATIVE); KETONES,URINE (UA) NEGATIVE (NEGATIVE); LEUKOCYTE ESTERASE, URINE NEGATIVE (NEGATIVE); NITRITE,URINE NEGATIVE (NEGATIVE); OCCULT BLOOD,URINE NEGATIVE (NEGATIVE); PROTEIN,URINE 30 mg/dL (NEGATIVE); UROBILINOGEN,URINE 0.2 (NORMAL) E.U./dL (NORMAL)
[2017-10-19 00:37] LABS: CLARITY,URINE CLEAR (CLEAR)
[2017-10-19 00:38] LABS: BACTERIA,URINE Few /HPF (None Seen); RBC,URINE 0-5 /HPF (0-5); SQUAMOUS EPITHELIAL CELL,UR MOD Squamous (<= Few)
== END 2017-10-18 19:16 | disposition home or self-care (01) ==
LOC: LAB.R 19:15
DX: R82.99 Other abnormal findings in urine (principal)
CPT/HCPCS: 81001; 81003; 87086

== ENCOUNTER 2017-11-08 08:00 | Outpatient (CLI) | payer MEDICAID, MEDICARE, OTHER ==
[2017-11-08 13:43] LABS: ALBUMIN 3.9 g/dL (3.2-5.5); ALBUMIN/GLOBULIN RATIO 1.1 (1.0-2.2); ALKALINE PHOSPHATASE 102 IU/L (42-121); ALT ALANINE AMINOTRANSFERASE 15 IU/L (10-60); AST ASPARTATE AMINOTRANSFERASE 15 IU/L (10-42); BILIRUBIN,TOTAL 0.5 mg/dL (0.2-1.0); BUN - BLOOD UREA NITROGEN 32 mg/dL (6-20); CALCIUM 9.1 mg/dL (8.5-10.3); CARBON DIOXIDE - CO2 25 mmol/L (21-32); CHLORIDE 100 mmol/L (101-111); CREATININE 1.7 mg/dL (0.4-1.0); DIGOXIN 0.9 ng/mL; GFR - MDRD 28 (>89); GLUCOSE 168 mg/dL (70-100); SODIUM 137 mmol/L (135-145); TOTAL PROTEIN 7.6 g/dL (6.7-8.2)
== END 2017-11-08 08:01 | disposition home or self-care (01) ==
LOC: LAB.R 08:00
DX: I50.40 Unspecified combined systolic (congestive) and diastolic (congestive) heart failure (principal); I48.91 Unspecified atrial fibrillation
CPT/HCPCS: 80053; 80162

== ENCOUNTER 2017-11-22 08:00 | Outpatient (CLI) | payer MEDICARE, MEDICAID ==
[2017-11-22 18:23] LABS: BASOPHILS # (AUTO) 0.1 10^3/uL (0.0-0.1); BASOPHILS % (AUTO) 0.4 %; EOSINOPHILS # (AUTO) 0.6 10^3/uL (0.0-0.7); EOSINOPHILS % (AUTO) 4.4 %; HGB - HEMOGLOBIN 11.2 g/dL (12.0-16.0); LYMPHOCYTES # (AUTO) 1.9 10^3/uL (1.5-3.5); LYMPHOCYTES % (AUTO) 14.8 %; MEAN CORPUSCULAR HEMOGLOBIN 29.6 pg (27.0-31.0); MEAN CORPUSCULAR HGB CONC 32.5 g/dL (32.0-36.0); MEAN CORPUSCULAR VOLUME 91.3 fL (81.0-99.0); MEAN PLATELET VOLUME 7.9 fL (7.9-10.8); NEUTROPHILS # (AUTO) 9.3 10^3/uL (1.5-6.6); NEUTROPHILS % (AUTO) 72.4 %; PLT - PLATELET COUNT 321 10^3/uL (130-450); RED BLOOD COUNT 3.79 10^6/uL (4.20-5.40); RED CELL DISTRIBUTION WIDTH 15.1 % (12.0-15.0); WHITE BLOOD COUNT 12.9 x10^3/uL (4.8-10.8)
== END 2017-11-22 08:01 | disposition home or self-care (01) ==
LOC: LAB.R 08:00
DX: Z13.0 Encounter for screening for diseases of the blood and blood-forming organs and certain disorders involving the immune mechanism (principal); R79.89 Other specified abnormal findings of blood chemistry
CPT/HCPCS: 85025

== ENCOUNTER 2017-11-27 18:45 | Outpatient (CLI) | payer MEDICARE, MEDICAID ==
[2017-11-27 20:40] LABS: BASOPHILS # (AUTO) 0.1 10^3/uL (0.0-0.1); EOSINOPHILS # (AUTO) 0.7 10^3/uL (0.0-0.7); HGB - HEMOGLOBIN 10.5 g/dL (12.0-16.0); LYMPHOCYTES # (AUTO) 2.3 10^3/uL (1.5-3.5); LYMPHOCYTES % (AUTO) 19.4 %; MEAN CORPUSCULAR HEMOGLOBIN 29.6 pg (27.0-31.0); MEAN CORPUSCULAR HGB CONC 32.6 g/dL (32.0-36.0); MEAN CORPUSCULAR VOLUME 90.7 fL (81.0-99.0); MEAN PLATELET VOLUME 7.9 fL (7.9-10.8); MONOCYTES # (AUTO) 0.6 10^3/uL (0.0-1.0); MONOCYTES % (AUTO) 5.1 %; NEUTROPHILS # (AUTO) 8.1 10^3/uL (1.5-6.6); NEUTROPHILS % (AUTO) 68.5 %; PLT - PLATELET COUNT 416 10^3/uL (130-450); RED BLOOD COUNT 3.55 10^6/uL (4.20-5.40); WHITE BLOOD COUNT 11.8 x10^3/uL (4.8-10.8)
[2017-11-27 20:54] LABS: ALBUMIN 3.7 g/dL (3.2-5.5); ALBUMIN/GLOBULIN RATIO 0.9 (1.0-2.2); BILIRUBIN,TOTAL 0.4 mg/dL (0.2-1.0); CALCIUM 8.8 mg/dL (8.5-10.3); CREATININE 2.1 mg/dL (0.4-1.0)
[2017-11-27 22:24] LABS: HB2 TOTAL 11.1 g/dL; HEMOGLOBIN A1C 0.57 g/dL; HEMOGLOBIN A1C % 6.8 % (4.6-6.2)
== END 2017-11-27 18:46 | disposition home or self-care (01) ==
LOC: LAB.R 18:45
DX: R79.9 Abnormal finding of blood chemistry, unspecified (principal); F33.3 Major depressive disorder, recurrent, severe with psychotic symptoms
CPT/HCPCS: 80053; 83036; 85025

== ENCOUNTER 2017-12-09 08:00 | Outpatient (CLI) | payer MEDICARE, MEDICAID ==
[2017-12-09 18:37] LABS: ALBUMIN 3.8 g/dL (3.2-5.5); ALKALINE PHOSPHATASE 94 IU/L (42-121); ALT ALANINE AMINOTRANSFERASE 12 IU/L (10-60); AST ASPARTATE AMINOTRANSFERASE 18 IU/L (10-42); BILIRUBIN,TOTAL 0.6 mg/dL (0.2-1.0); BUN - BLOOD UREA NITROGEN 30 mg/dL (6-20); CALCIUM 9.2 mg/dL (8.5-10.3); CARBON DIOXIDE - CO2 23 mmol/L (21-32); CHLORIDE 101 mmol/L (101-111); CREATININE 1.7 mg/dL (0.4-1.0); DIGOXIN 0.9 ng/mL; GFR - MDRD 28 (>89); GLUCOSE 142 mg/dL (70-100); SODIUM 137 mmol/L (135-145); TOTAL PROTEIN 7.5 g/dL (6.7-8.2)
== END 2017-12-09 08:01 | disposition home or self-care (01) ==
LOC: LAB.R 08:00
DX: I50.40 Unspecified combined systolic (congestive) and diastolic (congestive) heart failure (principal); I48.91 Unspecified atrial fibrillation
CPT/HCPCS: 80053; 80162

== ENCOUNTER 2018-01-01 08:00 | Outpatient (CLI) | payer MEDICARE, MEDICAID ==
[2018-01-01 16:21] LABS: BASOPHILS # (AUTO) 0.1 10^3/uL (0.0-0.1); BASOPHILS % (AUTO) 0.6 %; EOSINOPHILS # (AUTO) 0.7 10^3/uL (0.0-0.7); EOSINOPHILS % (AUTO) 8.6 %; HGB - HEMOGLOBIN 10.9 g/dL (12.0-16.0); LYMPHOCYTES # (AUTO) 1.5 10^3/uL (1.5-3.5); MEAN CORPUSCULAR HEMOGLOBIN 29.4 pg (27.0-31.0); MEAN CORPUSCULAR HGB CONC 32.4 g/dL (32.0-36.0); MEAN CORPUSCULAR VOLUME 90.8 fL (81.0-99.0); MEAN PLATELET VOLUME 8.2 fL (7.9-10.8); MONOCYTES # (AUTO) 0.5 10^3/uL (0.0-1.0); MONOCYTES % (AUTO) 6.2 %; NEUTROPHILS # (AUTO) 5.7 10^3/uL (1.5-6.6); NEUTROPHILS % (AUTO) 66.6 %; PLT - PLATELET COUNT 283 10^3/uL (130-450); RED BLOOD COUNT 3.69 10^6/uL (4.20-5.40); RED CELL DISTRIBUTION WIDTH 15.8 % (12.0-15.0); WHITE BLOOD COUNT 8.6 x10^3/uL (4.8-10.8)
[2018-01-01 16:32] LABS: ALBUMIN 3.7 g/dL (3.2-5.5); BILIRUBIN,TOTAL 0.3 mg/dL (0.2-1.0); CALCIUM 8.6 mg/dL (8.5-10.3); CREATININE 1.9 mg/dL (0.4-1.0); TOTAL PROTEIN 7.3 g/dL (6.7-8.2)
== END 2018-01-01 08:01 | disposition home or self-care (01) ==
LOC: LAB.R 08:00
DX: R79.9 Abnormal finding of blood chemistry, unspecified (principal); R68.89 Other general symptoms and signs
CPT/HCPCS: 80053; 85025

== ENCOUNTER 2018-01-04 15:20 | Outpatient (CLI) | payer MEDICARE, MEDICAID ==
[2018-01-05 20:44] LABS: BILIRUBIN,URINE NEGATIVE (NEGATIVE); GLUCOSE, URINE (UA) NEGATIVE (NEGATIVE); KETONES,URINE (UA) NEGATIVE (NEGATIVE); LEUKOCYTE ESTERASE, URINE NEGATIVE (NEGATIVE); NITRITE,URINE NEGATIVE (NEGATIVE); OCCULT BLOOD,URINE NEGATIVE (NEGATIVE); PROTEIN,URINE 30 mg/dL (NEGATIVE); UROBILINOGEN,URINE 0.2 (NORMAL) E.U./dL (NORMAL)
[2018-01-05 20:46] LABS: CLARITY,URINE CLEAR (CLEAR)
[2018-01-05 20:51] LABS: RBC,URINE 0-5 /HPF (0-5)
[2018-01-05 20:52] LABS: BACTERIA,URINE Rare /HPF (None Seen); SQUAMOUS EPITHELIAL CELL,UR FEW Squamous (<= Few)
== END 2018-01-04 15:21 | disposition home or self-care (01) ==
LOC: LAB.R 15:20
DX: N18.6 End stage renal disease (principal)
CPT/HCPCS: 81001; 81003; 87086

== ENCOUNTER 2018-01-07 08:00 | Outpatient (CLI) | payer MEDICARE, MEDICAID ==
[2018-01-07 20:11] LABS: DIGOXIN 1.3 ng/mL
== END 2018-01-07 08:01 | disposition home or self-care (01) ==
LOC: LAB.R 08:00
DX: I48.91 Unspecified atrial fibrillation (principal)
CPT/HCPCS: 80162

== ENCOUNTER 2018-02-05 08:35 | Outpatient (CLI) | payer MEDICARE, MEDICAID ==
[2018-02-05 10:52] LABS: BASOPHILS # (AUTO) 0.1 10^3/uL (0.0-0.1); BASOPHILS % (AUTO) 0.7 %; EOSINOPHILS # (AUTO) 0.9 10^3/uL (0.0-0.7); EOSINOPHILS % (AUTO) 8.8 %; HGB - HEMOGLOBIN 11.3 g/dL (12.0-16.0); LYMPHOCYTES # (AUTO) 2.4 10^3/uL (1.5-3.5); LYMPHOCYTES % (AUTO) 24.3 %; MEAN CORPUSCULAR HEMOGLOBIN 30.9 pg (27.0-31.0); MEAN CORPUSCULAR HGB CONC 33.5 g/dL (32.0-36.0); MEAN CORPUSCULAR VOLUME 92.4 fL (81.0-99.0); MEAN PLATELET VOLUME 8.1 fL (7.9-10.8); MONOCYTES # (AUTO) 0.8 10^3/uL (0.0-1.0); MONOCYTES % (AUTO) 7.7 %; NEUTROPHILS # (AUTO) 5.7 10^3/uL (1.5-6.6); NEUTROPHILS % (AUTO) 58.5 %; PLT - PLATELET COUNT 316 10^3/uL (130-450); RED BLOOD COUNT 3.65 10^6/uL (4.20-5.40); RED CELL DISTRIBUTION WIDTH 17.1 % (12.0-15.0); WHITE BLOOD COUNT 9.7 x10^3/uL (4.8-10.8)
[2018-02-05 11:11] LABS: ALKALINE PHOSPHATASE 106 IU/L (42-121); ALT ALANINE AMINOTRANSFERASE 11 IU/L (10-60); AST ASPARTATE AMINOTRANSFERASE 17 IU/L (10-42); BILIRUBIN,TOTAL 0.5 mg/dL (0.2-1.0); BUN - BLOOD UREA NITROGEN 29 mg/dL (6-20); CALCIUM 9.2 mg/dL (8.5-10.3); CARBON DIOXIDE - CO2 22 mmol/L (21-32); CHLORIDE 103 mmol/L (101-111); CHOL/HDL RATIO 5.4 (<4.4); CHOLESTEROL 162 mg/dL; CREATININE 2.2 mg/dL (0.4-1.0); GFR - MDRD 21 (>89); GLUCOSE 131 mg/dL (70-100); HDL CHOLESTEROL 30 mg/dL; LDL CHOLESTEROL,CALCULATED 90 mg/dL; SODIUM 136 mmol/L (135-145); TOTAL PROTEIN 7.9 g/dL (6.7-8.2); VLDL CHOLESTEROL 42 mg/dL
== END 2018-02-05 08:36 | disposition home or self-care (01) ==
LOC: LAB.R 08:35
DX: I13.2 Hypertensive heart and chronic kidney disease with heart failure and with stage 5 chronic kidney disease, or end stage renal disease (principal); E78.5 Hyperlipidemia, unspecified; E55.9 Vitamin D deficiency, unspecified; N18.6 End stage renal disease; I50.40 Unspecified combined systolic (congestive) and diastolic (congestive) heart failure
CPT/HCPCS: 80053; 80061; 82306; 83721; 83880; 84443; 85025

== ENCOUNTER 2018-02-12 14:10 | Outpatient (CLI) | payer MEDICARE, MEDICAID ==
[2018-02-12 16:59] LABS: BILIRUBIN,URINE NEGATIVE (NEGATIVE); GLUCOSE, URINE (UA) NEGATIVE (NEGATIVE); KETONES,URINE (UA) NEGATIVE (NEGATIVE); LEUKOCYTE ESTERASE, URINE LARGE (NEGATIVE); NITRITE,URINE NEGATIVE (NEGATIVE); OCCULT BLOOD,URINE SMALL (NEGATIVE); PROTEIN,URINE 100 mg/dL (NEGATIVE); UROBILINOGEN,URINE 0.2 (NORMAL) E.U./dL (NORMAL)
[2018-02-12 17:05] LABS: CLARITY,URINE CLOUDY (CLEAR)
[2018-02-12 17:06] LABS: BACTERIA,URINE Many /HPF (None Seen); RBC,URINE 0-5 /HPF (0-5); SQUAMOUS EPITHELIAL CELL,UR MOD Squamous (<= Few); WBC CLUMPS,URINE PRESENT
== END 2018-02-12 14:11 ==
LOC: LAB.R 14:10
DX: N18.6 End stage renal disease (principal)
CPT/HCPCS: 81001; 81003; 87086

== ENCOUNTER 2018-03-07 08:00 | Outpatient (CLI) | payer MEDICARE, MEDICAID ==
[2018-03-07 22:54] LABS: BILIRUBIN,URINE NEGATIVE (NEGATIVE); GLUCOSE, URINE (UA) NEGATIVE (NEGATIVE); KETONES,URINE (UA) NEGATIVE (NEGATIVE); LEUKOCYTE ESTERASE, URINE NEGATIVE (NEGATIVE); NITRITE,URINE NEGATIVE (NEGATIVE); OCCULT BLOOD,URINE NEGATIVE (NEGATIVE); PROTEIN,URINE 100 mg/dL (NEGATIVE); UROBILINOGEN,URINE 0.2 (NORMAL) E.U./dL (NORMAL)
[2018-03-07 22:55] LABS: CLARITY,URINE CLEAR (CLEAR)
[2018-03-07 23:12] LABS: BACTERIA,URINE Few /HPF (None Seen); MUCUS,URINE Few Strands; RBC,URINE 0-5 /HPF (0-5); SQUAMOUS EPITHELIAL CELL,UR MOD Squamous (<= Few)
== END 2018-03-07 08:01 | disposition home or self-care (01) ==
LOC: LAB.R 08:00
DX: N39.0 Urinary tract infection, site not specified (principal)
CPT/HCPCS: 81001; 81003; 87086

== ENCOUNTER 2018-03-31 08:00 | Outpatient (CLI) | payer MEDICARE, MEDICAID ==
[2018-03-31 00:58] LABS: BASOPHILS % (AUTO) 0.7 %; EOSINOPHILS % (AUTO) 10.7 %; HGB - HEMOGLOBIN 11.2 g/dL (12.0-16.0); MEAN CORPUSCULAR HEMOGLOBIN 31.2 pg (27.0-31.0); MEAN CORPUSCULAR HGB CONC 33.2 g/dL (32.0-36.0); MEAN CORPUSCULAR VOLUME 93.9 fL (81.0-99.0); MEAN PLATELET VOLUME 8.6 fL (7.9-10.8); MONOCYTES % (AUTO) 5.7 %; NEUTROPHILS % (AUTO) 60.9 %; PLT - PLATELET COUNT 313 10^3/uL (130-450); RED BLOOD COUNT 3.58 10^6/uL (4.20-5.40); RED CELL DISTRIBUTION WIDTH 15.7 % (12.0-15.0)
[2018-03-31 01:00] LABS: ALBUMIN 3.2 g/dL (3.2-5.5); ALBUMIN/GLOBULIN RATIO 0.9 (1.0-2.2); ALKALINE PHOSPHATASE 102 IU/L (42-121); ALT ALANINE AMINOTRANSFERASE 11 IU/L (10-60); AST ASPARTATE AMINOTRANSFERASE 14 IU/L (10-42); BILIRUBIN,TOTAL 0.3 mg/dL (0.2-1.0); BUN - BLOOD UREA NITROGEN 34 mg/dL (6-20); CALCIUM 9.1 mg/dL (8.5-10.3); CARBON DIOXIDE - CO2 23 mmol/L (21-32); CHLORIDE 103 mmol/L (101-111); CHOL/HDL RATIO 4.9 (<4.4); CHOLESTEROL 131 mg/dL; CREATININE 2.1 mg/dL (0.4-1.0); GFR - MDRD 22 (>89); GLUCOSE 95 mg/dL (70-100); HDL CHOLESTEROL 27 mg/dL; LDL CHOLESTEROL,CALCULATED 44 mg/dL; LDL/HDL RATIO 1.6 (<4.4); SODIUM 136 mmol/L (135-145); TOTAL PROTEIN 6.6 g/dL (6.7-8.2); URIC ACID 2.7 mg/dL (2.6-7.2); VLDL CHOLESTEROL 60 mg/dL
[2018-03-31 01:02] LABS: ABNORMAL LYMPHS % (MANUAL) 0 %; BAND NEUTROPHILS % (MANUAL) 0 %
[2018-03-31 01:31] LABS: EOSINOPHILS # (MANUAL) 1.3 10^3/uL (0-0.7); LYMPHOCYTES # (MANUAL) 2.4 10^3/uL (1.5-3.5); LYMPHOCYTES % (MANUAL) 22 %; MONOCYTES # (MANUAL) 0.6 10^3/uL (0.0-1.0); NEUTROPHILS # (MANUAL) 6.7 10^3/uL (1.5-6.6); NEUTROPHILS % (MANUAL) 61 %
[2018-03-31 01:32] LABS: DIFFERENTIAL COMMENT MANUAL DIFFERENTIAL; PLATELET ESTIMATE, MANUAL NORMAL (130-450,000) (NORMAL); RBC MORPHOLOGY (MULTIPLE) NORMAL APPEARANCE (NORMAL)
[2018-03-31 03:24] LABS: HB2 TOTAL 11.9 g/dL; HEMOGLOBIN A1C 0.51 g/dL; HEMOGLOBIN A1C % 6.1 % (4.6-6.2)
== END 2018-03-31 08:01 | disposition home or self-care (01) ==
LOC: LAB.R 08:00
PROVIDERS: ATTEND Internal Medicine
DX: I50.9 Heart failure, unspecified (principal); E78.5 Hyperlipidemia, unspecified; Z13.0 Encounter for screening for diseases of the blood and blood-forming organs and certain disorders involving the immune mechanism; M10.00 Idiopathic gout, unspecified site; E08.8 Diabetes mellitus due to underlying condition with unspecified complications
CPT/HCPCS: 80053; 80061; 83036; 83721; 84550; 85025

== ENCOUNTER 2018-04-24 08:00 | Outpatient (CLI) | payer MEDICARE, MEDICAID ==
[2018-04-24 16:09] LABS: HB2 TOTAL 13.1 g/dL; HEMOGLOBIN A1C 0.55 g/dL
== END 2018-04-24 08:01 | disposition home or self-care (01) ==
LOC: LAB.R 08:00
PROVIDERS: ATTEND Internal Medicine
DX: E11.9 Type 2 diabetes mellitus without complications (principal)
CPT/HCPCS: 83036

== ENCOUNTER 2018-05-24 21:10 | Outpatient (CLI) | payer MEDICARE, MEDICAID ==
[2018-05-25 15:55] LABS: CREATININE 2.3 mg/dL (0.4-1.0)
== END 2018-05-24 23:59 ==
LOC: LAB.R 21:10
DX: N18.6 End stage renal disease (principal)
CPT/HCPCS: 80048

== ENCOUNTER 2018-06-11 10:45 | Outpatient (CLI) | payer MEDICARE, MEDICAID ==
[2018-06-11 13:52] LABS: DIGOXIN 1.7 ng/mL
== END 2018-06-11 10:46 | disposition home or self-care (01) ==
LOC: LAB.R 10:45
PROVIDERS: ATTEND Internal Medicine
DX: I50.40 Unspecified combined systolic (congestive) and diastolic (congestive) heart failure (principal); I50.9 Heart failure, unspecified
CPT/HCPCS: 80162

== ENCOUNTER 2018-07-09 18:27 | Outpatient (CLI) | payer MEDICARE, MEDICAID ==
[2018-07-09 20:22] LABS: BUN - BLOOD UREA NITROGEN 48 mg/dL (6-20); CARBON DIOXIDE - CO2 25 mmol/L (21-32); CHLORIDE 103 mmol/L (101-111); DIGOXIN 1.3 ng/mL; GFR - MDRD 24 (>89); GLUCOSE 151 mg/dL (70-100); SODIUM 139 mmol/L (135-145)
== END 2018-07-09 18:28 | disposition home or self-care (01) ==
LOC: LAB.R 18:27
PROVIDERS: ATTEND Internal Medicine
DX: I50.40 Unspecified combined systolic (congestive) and diastolic (congestive) heart failure (principal); I50.9 Heart failure, unspecified
CPT/HCPCS: 80048; 80162

== ENCOUNTER 2018-07-23 08:00 | Outpatient (CLI) | payer MEDICARE, MEDICAID ==
[2018-07-23 00:47] LABS: BASOPHILS % (AUTO) 0.5 %; EOSINOPHILS % (AUTO) 10.3 %; HGB - HEMOGLOBIN 10.3 g/dL (12.0-16.0); LYMPHOCYTES # (AUTO) 1.9 10^3/uL (1.5-3.5); LYMPHOCYTES % (AUTO) 19.5 %; MEAN CORPUSCULAR HEMOGLOBIN 30.7 pg (27.0-31.0); MEAN CORPUSCULAR VOLUME 90.2 fL (81.0-99.0); MEAN PLATELET VOLUME 7.8 fL (7.9-10.8); MONOCYTES # (AUTO) 0.6 10^3/uL (0.0-1.0); MONOCYTES % (AUTO) 6.4 %; NEUTROPHILS # (AUTO) 6.1 10^3/uL (1.5-6.6); NEUTROPHILS % (AUTO) 63.3 %; PLT - PLATELET COUNT 303 10^3/uL (130-450); RED BLOOD COUNT 3.35 10^6/uL (4.20-5.40); RED CELL DISTRIBUTION WIDTH 15.7 % (12.0-15.0); WHITE BLOOD COUNT 9.6 x10^3/uL (4.8-10.8)
[2018-07-23 00:51] LABS: CALCIUM 8.6 mg/dL (8.5-10.3); CREATININE 2.1 mg/dL (0.4-1.0)
[2018-07-23 07:13] LABS: BILIRUBIN,URINE NEGATIVE (NEGATIVE); GLUCOSE, URINE (UA) NEGATIVE (NEGATIVE); KETONES,URINE (UA) NEGATIVE (NEGATIVE); LEUKOCYTE ESTERASE, URINE NEGATIVE (NEGATIVE); NITRITE,URINE NEGATIVE (NEGATIVE); OCCULT BLOOD,URINE NEGATIVE (NEGATIVE); PROTEIN,URINE 30 mg/dL (NEGATIVE); UROBILINOGEN,URINE 0.2 (NORMAL) E.U./dL (NORMAL)
[2018-07-23 07:19] LABS: CLARITY,URINE HAZY (CLEAR)
[2018-07-23 07:28] LABS: BACTERIA,URINE Rare /HPF (None Seen); RBC,URINE None Seen /HPF (0-5); SQUAMOUS EPITHELIAL CELL,UR MOD Squamous (<= Few)
== END 2018-07-23 08:01 | disposition home or self-care (01) ==
LOC: LAB.R 08:00
PROVIDERS: ATTEND Internal Medicine
DX: N18.9 Chronic kidney disease, unspecified (principal); D64.9 Anemia, unspecified; N39.0 Urinary tract infection, site not specified
CPT/HCPCS: 80048; 81001; 81003; 85025; 87086

== ENCOUNTER 2018-07-25 15:20 | Outpatient (CLI) | payer MEDICARE, MEDICAID ==
[2018-07-25 20:06] LABS: BASOPHILS # (AUTO) 0.1 10^3/uL (0.0-0.1); BASOPHILS % (AUTO) 0.5 %; EOSINOPHILS % (AUTO) 7.7 %; LYMPHOCYTES # (AUTO) 1.9 10^3/uL (1.5-3.5); LYMPHOCYTES % (AUTO) 13.9 %; MEAN CORPUSCULAR HEMOGLOBIN 30.8 pg (27.0-31.0); MEAN CORPUSCULAR HGB CONC 34.1 g/dL (32.0-36.0); MEAN CORPUSCULAR VOLUME 90.4 fL (81.0-99.0); MEAN PLATELET VOLUME 8.1 fL (7.9-10.8); MONOCYTES # (AUTO) 0.7 10^3/uL (0.0-1.0); MONOCYTES % (AUTO) 4.9 %; NEUTROPHILS # (AUTO) 9.9 10^3/uL (1.5-6.6); PLT - PLATELET COUNT 330 10^3/uL (130-450); RED BLOOD COUNT 3.57 10^6/uL (4.20-5.40); RED CELL DISTRIBUTION WIDTH 15.7 % (12.0-15.0); WHITE BLOOD COUNT 13.6 x10^3/uL (4.8-10.8)
[2018-07-25 20:43] LABS: ALKALINE PHOSPHATASE 128 IU/L (42-121); ALT ALANINE AMINOTRANSFERASE 10 IU/L (10-60); AST ASPARTATE AMINOTRANSFERASE 17 IU/L (10-42); BILIRUBIN,TOTAL < 0.2 mg/dL (0.2-1.0); BUN - BLOOD UREA NITROGEN 38 mg/dL (6-20); CARBON DIOXIDE - CO2 25 mmol/L (21-32); CHLORIDE 104 mmol/L (101-111); CHOL/HDL RATIO 5.2 (<4.4); CHOLESTEROL 165 mg/dL; CREATININE 2.2 mg/dL (0.4-1.0); GFR - MDRD 21 (>89); GLUCOSE 120 mg/dL (70-100); HDL CHOLESTEROL 32 mg/dL; LDL CHOLESTEROL,CALCULATED 78 mg/dL; LDL/HDL RATIO 2.4 (<4.4); SODIUM 136 mmol/L (135-145); TOTAL PROTEIN 8.2 g/dL (6.7-8.2); VLDL CHOLESTEROL 55 mg/dL
== END 2018-07-25 15:21 | disposition home or self-care (01) ==
LOC: LAB.R 15:20
DX: I50.9 Heart failure, unspecified (principal); E08.8 Diabetes mellitus due to underlying condition with unspecified complications; E78.5 Hyperlipidemia, unspecified; N18.6 End stage renal disease
CPT/HCPCS: 80053; 80061; 82306; 83721; 84443; 85025

== ENCOUNTER 2018-08-08 10:55 | Outpatient (CLI) | payer MEDICARE, MEDICAID ==
[2018-08-08 14:05] LABS: ALBUMIN 3.8 g/dL (3.2-5.5); ALBUMIN/GLOBULIN RATIO 0.9 (1.0-2.2); ALKALINE PHOSPHATASE 112 IU/L (42-121); ALT ALANINE AMINOTRANSFERASE 11 IU/L (10-60); AST ASPARTATE AMINOTRANSFERASE 17 IU/L (10-42); BILIRUBIN,TOTAL 0.6 mg/dL (0.2-1.0); BUN - BLOOD UREA NITROGEN 50 mg/dL (6-20); CALCIUM 9.1 mg/dL (8.5-10.3); CARBON DIOXIDE - CO2 26 mmol/L (21-32); CHLORIDE 101 mmol/L (101-111); CREATININE 2.3 mg/dL (0.4-1.0); DIGOXIN 1.7 ng/mL; GFR - MDRD 20 (>89); GLUCOSE 157 mg/dL (70-100); SODIUM 138 mmol/L (135-145)
== END 2018-08-08 10:56 | disposition home or self-care (01) ==
LOC: LAB.R 10:55
DX: I10 Essential (primary) hypertension (principal); I50.40 Unspecified combined systolic (congestive) and diastolic (congestive) heart failure; N18.9 Chronic kidney disease, unspecified
CPT/HCPCS: 80053; 80162

== ENCOUNTER 2018-09-12 06:45 | Outpatient (CLI) | payer MEDICARE, MEDICAID ==
[2018-09-12 08:02] LABS: ALBUMIN 3.7 g/dL (3.2-5.5); ALBUMIN/GLOBULIN RATIO 1.1 (1.0-2.2); ALKALINE PHOSPHATASE 99 IU/L (42-121); ALT ALANINE AMINOTRANSFERASE 15 IU/L (10-60); AST ASPARTATE AMINOTRANSFERASE 17 IU/L (10-42); BILIRUBIN,TOTAL 0.6 mg/dL (0.2-1.0); BUN - BLOOD UREA NITROGEN 41 mg/dL (6-20); CALCIUM 8.8 mg/dL (8.5-10.3); CARBON DIOXIDE - CO2 22 mmol/L (21-32); CHLORIDE 106 mmol/L (101-111); CREATININE 2.1 mg/dL (0.4-1.0); DIGOXIN 0.7 ng/mL; GFR - MDRD 22 (>89); GLUCOSE 109 mg/dL (70-100); SODIUM 138 mmol/L (135-145); TOTAL PROTEIN 7.2 g/dL (6.7-8.2)
[2018-09-12 08:07] LABS: BASOPHILS # (AUTO) 0.1 10^3/uL (0.0-0.1); BASOPHILS % (AUTO) 0.4 %; EOSINOPHILS # (AUTO) 1.1 10^3/uL (0.0-0.7); EOSINOPHILS % (AUTO) 9.4 %; HGB - HEMOGLOBIN 10.2 g/dL (12.0-16.0); LYMPHOCYTES # (AUTO) 2.4 10^3/uL (1.5-3.5); LYMPHOCYTES % (AUTO) 20.4 %; MEAN CORPUSCULAR HEMOGLOBIN 31.2 pg (27.0-31.0); MEAN CORPUSCULAR HGB CONC 33.7 g/dL (32.0-36.0); MEAN CORPUSCULAR VOLUME 92.3 fL (81.0-99.0); MEAN PLATELET VOLUME 8.3 fL (7.9-10.8); MONOCYTES # (AUTO) 0.7 10^3/uL (0.0-1.0); MONOCYTES % (AUTO) 5.6 %; NEUTROPHILS # (AUTO) 7.5 10^3/uL (1.5-6.6); NEUTROPHILS % (AUTO) 64.2 %; PLT - PLATELET COUNT 302 10^3/uL (130-450); RED BLOOD COUNT 3.28 10^6/uL (4.20-5.40); RED CELL DISTRIBUTION WIDTH 15.8 % (12.0-15.0); WHITE BLOOD COUNT 11.7 x10^3/uL (4.8-10.8)
[2018-09-12 08:27] LABS: HEMOGLOBIN A1C 0.44 g/dL; HEMOGLOBIN A1C % 5.8 % (4.6-6.2)
== END 2018-09-12 06:46 | disposition home or self-care (01) ==
LOC: LAB.R 06:45
DX: N18.9 Chronic kidney disease, unspecified (principal); E08.8 Diabetes mellitus due to underlying condition with unspecified complications; I50.40 Unspecified combined systolic (congestive) and diastolic (congestive) heart failure; N18.6 End stage renal disease; I67.9 Cerebrovascular disease, unspecified
CPT/HCPCS: 80053; 80162; 82306; 83036; 84443; 85025

== ENCOUNTER 2018-10-24 07:45 | Outpatient (CLI) | payer MEDICARE, MEDICAID ==
[2018-10-24 08:54] LABS: BASOPHILS # (AUTO) 0.1 10^3/uL (0.0-0.1); BASOPHILS % (AUTO) 0.6 %; EOSINOPHILS # (AUTO) 1.2 10^3/uL (0.0-0.7); EOSINOPHILS % (AUTO) 8.3 %; HGB - HEMOGLOBIN 10.8 g/dL (12.0-16.0); LYMPHOCYTES # (AUTO) 2.3 10^3/uL (1.5-3.5); LYMPHOCYTES % (AUTO) 16.4 %; MEAN CORPUSCULAR HEMOGLOBIN 29.9 pg (27.0-31.0); MEAN CORPUSCULAR HGB CONC 32.8 g/dL (32.0-36.0); MEAN PLATELET VOLUME 7.7 fL (7.9-10.8); MONOCYTES # (AUTO) 0.6 10^3/uL (0.0-1.0); MONOCYTES % (AUTO) 4.5 %; NEUTROPHILS # (AUTO) 9.8 10^3/uL (1.5-6.6); NEUTROPHILS % (AUTO) 70.2 %; PLT - PLATELET COUNT 390 10^3/uL (130-450); RED BLOOD COUNT 3.62 10^6/uL (4.20-5.40); RED CELL DISTRIBUTION WIDTH 15.5 % (12.0-15.0)
[2018-10-24 08:58] LABS: CREATININE 1.9 mg/dL (0.4-1.0)
[2018-10-24 09:09] LABS: RBC MORPHOLOGY (MULTIPLE) 2+ ANISOCYTOSIS (NORMAL)
== END 2018-10-24 23:59 | disposition home or self-care (01) ==
LOC: LAB.R 07:45
DX: I50.40 Unspecified combined systolic (congestive) and diastolic (congestive) heart failure (principal); I50.9 Heart failure, unspecified
CPT/HCPCS: 80048; 85025

== ENCOUNTER 2018-11-12 08:00 | Outpatient (CLI) | payer MEDICARE, MEDICAID ==
[2018-11-12 14:29] LABS: BASOPHILS # (AUTO) 0.1 10^3/uL (0.0-0.1); BASOPHILS % (AUTO) 0.7 %; EOSINOPHILS # (AUTO) 1.2 10^3/uL (0.0-0.7); EOSINOPHILS % (AUTO) 10.2 %; HGB - HEMOGLOBIN 11.5 g/dL (12.0-16.0); LYMPHOCYTES # (AUTO) 2.1 10^3/uL (1.5-3.5); LYMPHOCYTES % (AUTO) 17.5 %; MEAN CORPUSCULAR HEMOGLOBIN 30.4 pg (27.0-31.0); MEAN CORPUSCULAR HGB CONC 32.5 g/dL (32.0-36.0); MEAN CORPUSCULAR VOLUME 93.7 fL (81.0-99.0); MONOCYTES # (AUTO) 0.7 10^3/uL (0.0-1.0); MONOCYTES % (AUTO) 6.1 %; NEUTROPHILS # (AUTO) 7.8 10^3/uL (1.5-6.6); NEUTROPHILS % (AUTO) 65.5 %; PLT - PLATELET COUNT 312 10^3/uL (130-450); RED CELL DISTRIBUTION WIDTH 16.1 % (12.0-15.0); WHITE BLOOD COUNT 11.8 x10^3/uL (4.8-10.8)
[2018-11-12 15:05] LABS: PLATELET ESTIMATE, MANUAL NORMAL (130-450,000) (NORMAL); PLATELET MORPHOLOGY NORMAL APPEARANCE (NORMAL); RBC MORPHOLOGY (MULTIPLE) NORMAL APPEARANCE (NORMAL)
== END 2018-11-12 23:59 | disposition home or self-care (01) ==
LOC: LAB.R 08:00
DX: N18.6 End stage renal disease (principal); I50.9 Heart failure, unspecified; E78.5 Hyperlipidemia, unspecified
CPT/HCPCS: 80053; 80061; 80162; 83721; 84439; 84443; 85025

== ENCOUNTER 2018-11-17 08:47 | Outpatient (CLI) | payer MEDICARE, MEDICAID ==
[2018-11-17 10:03] LABS: BASOPHILS # (AUTO) 0.1 10^3/uL (0.0-0.1); BASOPHILS % (AUTO) 0.5 %; EOSINOPHILS # (AUTO) 1.4 10^3/uL (0.0-0.7); EOSINOPHILS % (AUTO) 13.3 %; HGB - HEMOGLOBIN 11.6 g/dL (12.0-16.0); LYMPHOCYTES # (AUTO) 2.1 10^3/uL (1.5-3.5); MEAN CORPUSCULAR HEMOGLOBIN 30.3 pg (27.0-31.0); MEAN CORPUSCULAR HGB CONC 33.4 g/dL (32.0-36.0); MEAN CORPUSCULAR VOLUME 90.5 fL (81.0-99.0); MEAN PLATELET VOLUME 8.1 fL (7.9-10.8); MONOCYTES # (AUTO) 0.5 10^3/uL (0.0-1.0); MONOCYTES % (AUTO) 4.7 %; NEUTROPHILS # (AUTO) 6.6 10^3/uL (1.5-6.6); NEUTROPHILS % (AUTO) 61.5 %; PLT - PLATELET COUNT 308 10^3/uL (130-450); RED BLOOD COUNT 3.82 10^6/uL (4.20-5.40); WHITE BLOOD COUNT 10.7 x10^3/uL (4.8-10.8)
[2018-11-17 10:46] LABS: ALBUMIN 3.9 g/dL (3.2-5.5); ALKALINE PHOSPHATASE 97 IU/L (42-121); ALT ALANINE AMINOTRANSFERASE 13 IU/L (10-60); AST ASPARTATE AMINOTRANSFERASE 16 IU/L (10-42); BILIRUBIN,TOTAL 0.4 mg/dL (0.2-1.0); BUN - BLOOD UREA NITROGEN 40 mg/dL (6-20); CALCIUM 9.5 mg/dL (8.5-10.3); CARBON DIOXIDE - CO2 27 mmol/L (21-32); CHLORIDE 102 mmol/L (101-111); CHOL/HDL RATIO 4.9 (<4.4); CHOLESTEROL 147 mg/dL; CREATININE 2.2 mg/dL (0.4-1.0); GFR - MDRD 21 (>89); GLUCOSE 101 mg/dL (70-100); HDL CHOLESTEROL 30 mg/dL; LDL CHOLESTEROL,CALCULATED 59 mg/dL; SODIUM 139 mmol/L (135-145); TOTAL PROTEIN 7.8 g/dL (6.7-8.2); VLDL CHOLESTEROL 58 mg/dL
[2018-11-17 10:58] LABS: THYROID STIMULATING HORMONE 2.49 uIU/mL (0.34-5.60)
[2018-11-17 11:00] LABS: FREE T4 (FREE THYROXINE) 0.96 ng/dL (0.58-1.64)
[2018-11-17 11:04] LABS: FERRITIN 77.9 ng/mL (11.0-306.8)
[2018-11-17 11:14] LABS: PLATELET ESTIMATE, MANUAL NORMAL (130-450,000) (NORMAL); PLATELET MORPHOLOGY NORMAL APPEARANCE (NORMAL); RBC MORPHOLOGY (MULTIPLE) NORMAL APPEARANCE (NORMAL)
== END 2018-11-17 23:59 | disposition home or self-care (01) ==
LOC: LAB.R 08:47
PROVIDERS: ATTEND Internal Medicine
DX: N18.9 Chronic kidney disease, unspecified (principal); E78.5 Hyperlipidemia, unspecified; N18.6 End stage renal disease; E08.8 Diabetes mellitus due to underlying condition with unspecified complications
CPT/HCPCS: 80053; 80061; 82728; 83721; 84439; 84443; 85025

== ENCOUNTER 2019-01-08 08:00 | Outpatient (CLI) | payer MEDICARE, MEDICAID ==
[2019-01-08 12:24] LABS: BUN - BLOOD UREA NITROGEN 46 mg/dL (6-20); CALCIUM 9.1 mg/dL (8.5-10.3); CARBON DIOXIDE - CO2 25 mmol/L (21-32); CHLORIDE 104 mmol/L (101-111); CREATININE 2.3 mg/dL (0.4-1.0); DIGOXIN 0.6 ng/mL; GFR - MDRD 20 (>89); GLUCOSE 192 mg/dL (70-100); SODIUM 139 mmol/L (135-145)
== END 2019-01-08 23:59 | disposition home or self-care (01) ==
LOC: LAB.R 08:00
DX: N18.6 End stage renal disease (principal); I50.40 Unspecified combined systolic (congestive) and diastolic (congestive) heart failure
CPT/HCPCS: 80048; 80162

== ENCOUNTER 2019-02-06 08:00 | Outpatient (CLI) | payer MEDICARE, MEDICAID ==
[2019-02-06 18:12] LABS: BUN - BLOOD UREA NITROGEN 54 mg/dL (6-20); CALCIUM 9.4 mg/dL (8.5-10.3); CARBON DIOXIDE - CO2 23 mmol/L (21-32); CHLORIDE 103 mmol/L (101-111); CREATININE 2.3 mg/dL (0.4-1.0); DIGOXIN 0.5 ng/mL; GFR - MDRD 20 (>89); GLUCOSE 124 mg/dL (70-100); SODIUM 139 mmol/L (135-145)
== END 2019-02-06 23:59 | disposition home or self-care (01) ==
LOC: LAB.R 08:00
DX: I11.0 Hypertensive heart disease with heart failure (principal); I50.40 Unspecified combined systolic (congestive) and diastolic (congestive) heart failure
CPT/HCPCS: 80048; 80162

== ENCOUNTER 2019-02-12 08:00 | Outpatient (CLI) | payer MEDICARE, MEDICAID ==
[2019-02-12 19:00] LABS: BUN - BLOOD UREA NITROGEN 51 mg/dL (6-20); CALCIUM 9.3 mg/dL (8.5-10.3); CARBON DIOXIDE - CO2 24 mmol/L (21-32); CHLORIDE 105 mmol/L (101-111); CREATININE 2.2 mg/dL (0.4-1.0); DIGOXIN 0.5 ng/mL; GFR - MDRD 21 (>89); GLUCOSE 110 mg/dL (70-100); MAGNESIUM 2.3 mg/dL (1.7-2.8); SODIUM 139 mmol/L (135-145)
== END 2019-02-12 23:59 | disposition home or self-care (01) ==
LOC: LAB.R 08:00
DX: I50.9 Heart failure, unspecified (principal); N18.6 End stage renal disease
CPT/HCPCS: 80048; 80162; 83735

== ENCOUNTER 2019-03-02 08:00 | Outpatient (CLI) | payer MEDICARE, MEDICAID ==
[2019-03-02 00:52] LABS: BASOPHILS % (AUTO) 0.5 %; EOSINOPHILS % (AUTO) 10.3 %; HGB - HEMOGLOBIN 11.7 g/dL (12.0-16.0); LYMPHOCYTES % (AUTO) 28.6 %; MEAN CORPUSCULAR HEMOGLOBIN 30.4 pg (27.0-31.0); MEAN CORPUSCULAR HGB CONC 33.4 g/dL (32.0-36.0); MEAN CORPUSCULAR VOLUME 91.2 fL (81.0-99.0); MEAN PLATELET VOLUME 8.3 fL (7.9-10.8); MONOCYTES % (AUTO) 5.7 %; NEUTROPHILS % (AUTO) 54.9 %; PLT - PLATELET COUNT 291 10^3/uL (130-450); RED BLOOD COUNT 3.83 10^6/uL (4.20-5.40); RED CELL DISTRIBUTION WIDTH 15.7 % (12.0-15.0); WHITE BLOOD COUNT 11.7 x10^3/uL (4.8-10.8)
[2019-03-02 01:00] LABS: ABNORMAL LYMPHS % (MANUAL) 0 %; BAND NEUTROPHILS % (MANUAL) 0 %
[2019-03-02 01:11] LABS: BILIRUBIN,TOTAL 0.6 mg/dL (0.2-1.0); CALCIUM 9.4 mg/dL (8.5-10.3); CREATININE 2.2 mg/dL (0.4-1.0); TOTAL PROTEIN 7.9 g/dL (6.7-8.2)
[2019-03-02 01:30] LABS: BASOPHILS # (MANUAL) 0.1 10^3/uL (0-0.1); BASOPHILS % (MANUAL) 1 %; EOSINOPHILS # (MANUAL) 2.3 10^3/uL (0-0.7); LYMPHOCYTES # (MANUAL) 2.9 10^3/uL (1.5-3.5); LYMPHOCYTES % (MANUAL) 25 %; MONOCYTES # (MANUAL) 0.5 10^3/uL (0.0-1.0); NEUTROPHILS # (MANUAL) 5.9 10^3/uL (1.5-6.6); NEUTROPHILS % (MANUAL) 50 %; PLATELET ESTIMATE, MANUAL NORMAL (130-450,000) (NORMAL); RBC MORPHOLOGY (MULTIPLE) NORMAL APPEARANCE (NORMAL)
[2019-03-02 01:31] LABS: DIFFERENTIAL COMMENT MANUAL DIFFERENTIAL
== END 2019-03-02 23:59 | disposition home or self-care (01) ==
LOC: LAB.R 08:00
PROVIDERS: ATTEND Family Medicine
DX: I50.9 Heart failure, unspecified (principal)
CPT/HCPCS: 80053; 85025

== ENCOUNTER 2019-03-11 08:00 | Outpatient (CLI) | payer MEDICARE, MEDICAID ==
[2019-03-11 14:34] LABS: BILIRUBIN,URINE NEGATIVE (NEGATIVE); GLUCOSE, URINE (UA) NEGATIVE (NEGATIVE); KETONES,URINE (UA) NEGATIVE (NEGATIVE); LEUKOCYTE ESTERASE, URINE NEGATIVE (NEGATIVE); NITRITE,URINE POSITIVE (NEGATIVE); OCCULT BLOOD,URINE SMALL (NEGATIVE); PROTEIN,URINE NEGATIVE (NEGATIVE); UROBILINOGEN,URINE 0.2 (NORMAL) E.U./dL (NORMAL)
[2019-03-11 14:36] LABS: CLARITY,URINE HAZY (CLEAR)
[2019-03-11 14:41] LABS: RBC,URINE 0-5 /HPF (0-5); SQUAMOUS EPITHELIAL CELL,UR FEW Squamous (<= Few)
[2019-03-11 14:42] LABS: CRYSTALS,URINE 6-10 Calcium Oxalate /LPF
[2019-03-11 14:43] LABS: BACTERIA,URINE Moderate /HPF (None Seen)
== END 2019-03-11 23:59 | disposition home or self-care (01) ==
LOC: LAB.R 08:00
PROVIDERS: ATTEND Internal Medicine
DX: N18.6 End stage renal disease (principal)
CPT/HCPCS: 81001; 81003

== ENCOUNTER 2019-04-09 08:00 | Outpatient (CLI) | payer MEDICARE, MEDICAID ==
[2019-04-09 22:24] LABS: BUN - BLOOD UREA NITROGEN 55 mg/dL (6-20); CALCIUM 9.1 mg/dL (8.5-10.3); CARBON DIOXIDE - CO2 23 mmol/L (21-32); CHLORIDE 105 mmol/L (101-111); CREATININE 2.3 mg/dL (0.4-1.0); DIGOXIN 0.5 ng/mL; GFR - MDRD 20 (>89); GLUCOSE 146 mg/dL (70-100); SODIUM 140 mmol/L (135-145)
== END 2019-04-09 23:59 | disposition home or self-care (01) ==
LOC: LAB.R 08:00
DX: I50.40 Unspecified combined systolic (congestive) and diastolic (congestive) heart failure (principal); I48.91 Unspecified atrial fibrillation
CPT/HCPCS: 80048; 80162

== ENCOUNTER 2019-05-09 08:00 | Outpatient (CLI) | payer MEDICARE, MEDICAID | END 2019-05-09 23:59 | LOC: LAB.R 08:00 | DX: I48.91 Unspecified atrial fibrillation (principal); I50.9 Heart failure, unspecified | CPT/HCPCS: 80048; 80162 ==

== ENCOUNTER 2019-05-12 08:00 | Outpatient (CLI) | payer MEDICARE, MEDICAID ==
[2019-05-12 18:40] LABS: BASOPHILS % (AUTO) 0.8 %; EOSINOPHILS % (AUTO) 10.2 %; HGB - HEMOGLOBIN 11.1 g/dL (12.0-16.0); LYMPHOCYTES % (AUTO) 21.4 %; MEAN CORPUSCULAR HEMOGLOBIN 30.7 pg (27.0-31.0); MEAN CORPUSCULAR HGB CONC 31.7 g/dL (32.0-36.0); MEAN CORPUSCULAR VOLUME 96.7 fL (81.0-99.0); MEAN PLATELET VOLUME 10.1 fL (7.9-10.8); MONOCYTES % (AUTO) 6.6 %; NEUTROPHILS % (AUTO) 60.3 %; PLT - PLATELET COUNT 309 10^3/uL (130-450); RED BLOOD COUNT 3.62 10^6/uL (4.20-5.40); RED CELL DISTRIBUTION WIDTH 15.1 % (12.0-15.0); WHITE BLOOD COUNT 11.6 x10^3/uL (4.8-10.8)
[2019-05-12 18:59] LABS: ABNORMAL LYMPHS % (MANUAL) 0 %
[2019-05-12 19:17] LABS: BAND NEUTROPHILS % (MANUAL) 1 %; BASOPHILS # (MANUAL) 0.2 10^3/uL (0-0.1); BASOPHILS % (MANUAL) 2 %; DIFFERENTIAL COMMENT MANUAL DIFFERENTIAL; LYMPHOCYTES # (MANUAL) 2.4 10^3/uL (1.5-3.5); LYMPHOCYTES % (MANUAL) 21 %; MONOCYTES # (MANUAL) 0.5 10^3/uL (0.0-1.0); PLATELET ESTIMATE, MANUAL NORMAL (130-450,000) (NORMAL); PLATELET MORPHOLOGY NORMAL APPEARANCE (NORMAL); RBC MORPHOLOGY (MULTIPLE) 1+ ANISOCYTOSIS (NORMAL)
[2019-05-12 20:07] LABS: BUN - BLOOD UREA NITROGEN 47 mg/dL (6-20); CARBON DIOXIDE - CO2 24 mmol/L (21-32); CHLORIDE 104 mmol/L (101-111); SODIUM 141 mmol/L (135-145)
[2019-05-12 20:08] LABS: ALBUMIN/GLOBULIN RATIO 1.1 (1.0-2.2); ALKALINE PHOSPHATASE 74 IU/L (42-121); ALT ALANINE AMINOTRANSFERASE 15 IU/L (10-60); AST ASPARTATE AMINOTRANSFERASE 16 IU/L (10-42); BILIRUBIN,TOTAL 0.5 mg/dL (0.2-1.0); CALCIUM 9.4 mg/dL (8.5-10.3); CHOLESTEROL 163 mg/dL; CREATININE 2.5 mg/dL (0.4-1.0); GFR - MDRD 18 (>89); GLUCOSE 110 mg/dL (70-100); TOTAL PROTEIN 7.8 g/dL (6.7-8.2); URIC ACID 3.3 mg/dL (2.6-7.2); VLDL CHOLESTEROL 66 mg/dL
[2019-05-12 20:09] LABS: CHOL/HDL RATIO 5.3 (<4.4); DIGOXIN 0.7 ng/mL; HDL CHOLESTEROL 31 mg/dL; LDL CHOLESTEROL,CALCULATED 66 mg/dL; LDL/HDL RATIO 2.1 (<4.4)
[2019-05-12 20:43] LABS: HB2 TOTAL 11.9 g/dL; HEMOGLOBIN A1C 0.47 g/dL; HEMOGLOBIN A1C % 5.8 % (4.6-6.2)
== END 2019-05-12 23:59 | disposition home or self-care (01) ==
LOC: LAB.R 08:00
DX: I50.9 Heart failure, unspecified (principal); I67.9 Cerebrovascular disease, unspecified; E78.5 Hyperlipidemia, unspecified; N18.9 Chronic kidney disease, unspecified; E08.8 Diabetes mellitus due to underlying condition with unspecified complications; I48.91 Unspecified atrial fibrillation
CPT/HCPCS: 80053; 80061; 80162; 83036; 83721; 84443; 84550; 85025

== ENCOUNTER 2019-06-09 08:00 | Outpatient (CLI) | payer MEDICARE, MEDICAID ==
[2019-06-09 19:19] LABS: DIGOXIN 0.7 ng/mL
[2019-06-09 19:33] LABS: ALKALINE PHOSPHATASE 81 IU/L (42-121); ALT ALANINE AMINOTRANSFERASE 15 IU/L (10-60); AST ASPARTATE AMINOTRANSFERASE 16 IU/L (10-42); BILIRUBIN,TOTAL 0.4 mg/dL (0.2-1.0); BUN - BLOOD UREA NITROGEN 46 mg/dL (6-20); CALCIUM 8.9 mg/dL (8.5-10.3); CARBON DIOXIDE - CO2 21 mmol/L (21-32); CHLORIDE 105 mmol/L (101-111); CREATININE 2.6 mg/dL (0.4-1.0); GFR - MDRD 17 (>89); GLUCOSE 130 mg/dL (70-100); SODIUM 139 mmol/L (135-145); TOTAL PROTEIN 7.9 g/dL (6.7-8.2)
== END 2019-06-09 23:59 | disposition home or self-care (01) ==
LOC: LAB.R 08:00
DX: N18.6 End stage renal disease (principal); I50.9 Heart failure, unspecified
CPT/HCPCS: 80053; 80162

== ENCOUNTER 2019-07-28 17:50 | Outpatient (CLI) | payer MEDICARE, MEDICAID ==
[2019-07-28 19:02] LABS: BASOPHILS % (AUTO) 0.7 %; CALCIUM 9.5 mg/dL (8.5-10.3); CREATININE 2.2 mg/dL (0.4-1.0); EOSINOPHILS % (AUTO) 13.1 %; HGB - HEMOGLOBIN 11.5 g/dL (12.0-16.0); LYMPHOCYTES % (AUTO) 21.2 %; MAGNESIUM 2.1 mg/dL (1.7-2.8); MEAN CORPUSCULAR HEMOGLOBIN 30.3 pg (27.0-31.0); MEAN CORPUSCULAR HGB CONC 31.5 g/dL (32.0-36.0); MEAN CORPUSCULAR VOLUME 96.1 fL (81.0-99.0); MEAN PLATELET VOLUME 10.1 fL (7.9-10.8); NEUTROPHILS % (AUTO) 57.1 %; PLT - PLATELET COUNT 316 10^3/uL (130-450); RED CELL DISTRIBUTION WIDTH 14.6 % (12.0-15.0); WHITE BLOOD COUNT 11.5 x10^3/uL (4.8-10.8)
[2019-07-28 19:10] LABS: ABNORMAL LYMPHS % (MANUAL) 0 %; BAND NEUTROPHILS % (MANUAL) 0 %
[2019-07-28 19:38] LABS: EOSINOPHILS # (MANUAL) 1.2 10^3/uL (0-0.7); LYMPHOCYTES # (MANUAL) 2.6 10^3/uL (1.5-3.5); LYMPHOCYTES % (MANUAL) 23 %; MONOCYTES # (MANUAL) 1.2 10^3/uL (0.0-1.0)
[2019-07-28 19:40] LABS: DIFFERENTIAL COMMENT MANUAL DIFFERENTIAL; PLATELET ESTIMATE, MANUAL NORMAL (130-450,000) (NORMAL); PLATELET MORPHOLOGY NORMAL APPEARANCE (NORMAL)
[2019-07-28 19:43] LABS: HB2 TOTAL 11.9 g/dL; HEMOGLOBIN A1C 0.46 g/dL; HEMOGLOBIN A1C % 5.7 % (4.6-6.2)
== END 2019-07-28 23:59 | disposition home or self-care (01) ==
LOC: LAB.R 17:50
DX: I13.2 Hypertensive heart and chronic kidney disease with heart failure and with stage 5 chronic kidney disease, or end stage renal disease (principal); N18.6 End stage renal disease; I50.9 Heart failure, unspecified; E08.8 Diabetes mellitus due to underlying condition with unspecified complications; E07.9 Disorder of thyroid, unspecified
CPT/HCPCS: 80048; 83036; 83735; 84443; 85025

== ENCOUNTER 2019-08-07 08:00 | Outpatient (CLI) | payer MEDICARE, MEDICAID ==
[2019-08-08 23:16] LABS: BUN - BLOOD UREA NITROGEN 50 mg/dL (6-20); CALCIUM 8.9 mg/dL (8.5-10.3); CARBON DIOXIDE - CO2 21 mmol/L (21-32); CHLORIDE 108 mmol/L (101-111); CREATININE 2.5 mg/dL (0.4-1.0); DIGOXIN 0.6 ng/mL; GFR - MDRD 18 (>89); GLUCOSE 131 mg/dL (70-100); SODIUM 141 mmol/L (135-145)
== END 2019-08-07 23:59 | disposition home or self-care (01) ==
LOC: LAB.R 08:00
DX: I11.0 Hypertensive heart disease with heart failure (principal); I50.9 Heart failure, unspecified; Z51.81 Encounter for therapeutic drug level monitoring
CPT/HCPCS: 80048; 80162

== ENCOUNTER 2019-09-08 11:50 | Outpatient (CLI) | payer MEDICARE, MEDICAID ==
[2019-09-09 00:36] LABS: ALBUMIN 3.4 g/dL (3.2-5.5); ALBUMIN/GLOBULIN RATIO 0.9 (1.0-2.2); ALKALINE PHOSPHATASE 86 IU/L (42-121); ALT ALANINE AMINOTRANSFERASE 14 IU/L (10-60); AST ASPARTATE AMINOTRANSFERASE 16 IU/L (10-42); BILIRUBIN,TOTAL 0.4 mg/dL (0.2-1.0); BUN - BLOOD UREA NITROGEN 50 mg/dL (6-20); CARBON DIOXIDE - CO2 26 mmol/L (21-32); CHLORIDE 108 mmol/L (101-111); CREATININE 2.3 mg/dL (0.4-1.0); DIGOXIN 0.4 ng/mL; GFR - MDRD 20 (>89); GLUCOSE 107 mg/dL (70-100); SODIUM 143 mmol/L (135-145)
== END 2019-09-08 23:59 | disposition home or self-care (01) ==
LOC: LAB.R 11:50
PROVIDERS: ATTEND Internal Medicine
DX: I50.9 Heart failure, unspecified (principal); I50.40 Unspecified combined systolic (congestive) and diastolic (congestive) heart failure; N18.6 End stage renal disease
CPT/HCPCS: 80053; 80162

== ENCOUNTER 2019-10-18 11:45 | Outpatient (CLI) | payer MEDICARE, MEDICAID ==
[2019-10-19 01:01] LABS: BASOPHILS # (AUTO) 0.1 10^3/uL (0.0-0.1); BASOPHILS % (AUTO) 0.5 %; EOSINOPHILS # (AUTO) 1.5 10^3/uL (0.0-0.7); EOSINOPHILS % (AUTO) 12.9 %; LYMPHOCYTES # (AUTO) 2.9 10^3/uL (1.5-3.5); LYMPHOCYTES % (AUTO) 25.3 %; MEAN CORPUSCULAR HGB CONC 31.3 g/dL (32.0-36.0); MEAN CORPUSCULAR VOLUME 98.8 fL (81.0-99.0); MEAN PLATELET VOLUME 10.2 fL (7.9-10.8); MONOCYTES # (AUTO) 0.8 10^3/uL (0.0-1.0); MONOCYTES % (AUTO) 6.8 %; NEUTROPHILS # (AUTO) 6.1 10^3/uL (1.5-6.6); NEUTROPHILS % (AUTO) 53.4 %; PLT - PLATELET COUNT 291 10^3/uL (130-450); RED BLOOD COUNT 3.23 10^6/uL (4.20-5.40); RED CELL DISTRIBUTION WIDTH 14.9 % (12.0-15.0); WHITE BLOOD COUNT 11.4 x10^3/uL (4.8-10.8)
[2019-10-19 01:08] LABS: ALBUMIN 3.5 g/dL (3.2-5.5); BILIRUBIN,TOTAL 0.3 mg/dL (0.2-1.0); CALCIUM 8.9 mg/dL (8.5-10.3); CREATININE 2.4 mg/dL (0.4-1.0); TOTAL PROTEIN 7.1 g/dL (6.7-8.2)
== END 2019-10-18 23:59 ==
LOC: LAB.R 11:45
DX: N18.6 End stage renal disease (principal); E78.5 Hyperlipidemia, unspecified; K21.9 Gastro-esophageal reflux disease without esophagitis
CPT/HCPCS: 80053; 85025

== ENCOUNTER 2019-11-10 07:00 | Outpatient (CLI) | payer MEDICARE, MEDICAID ==
[2019-11-10 15:50] LABS: BASOPHILS % (AUTO) 0.7 %; HGB - HEMOGLOBIN 11.1 g/dL (12.0-16.0); LYMPHOCYTES % (AUTO) 20.5 %; MEAN CORPUSCULAR HEMOGLOBIN 30.7 pg (27.0-31.0); MEAN CORPUSCULAR HGB CONC 31.4 g/dL (32.0-36.0); MEAN CORPUSCULAR VOLUME 97.8 fL (81.0-99.0); MEAN PLATELET VOLUME 10.4 fL (7.9-10.8); MONOCYTES % (AUTO) 6.7 %; NEUTROPHILS % (AUTO) 56.4 %; PLT - PLATELET COUNT 303 10^3/uL (130-450); RED BLOOD COUNT 3.62 10^6/uL (4.20-5.40); RED CELL DISTRIBUTION WIDTH 15.3 % (12.0-15.0)
[2019-11-10 15:54] LABS: ABNORMAL LYMPHS % (MANUAL) 0 %
[2019-11-10 16:03] LABS: BUN - BLOOD UREA NITROGEN 53 mg/dL (6-20); CALCIUM 9.1 mg/dL (8.5-10.3); CARBON DIOXIDE - CO2 25 mmol/L (21-32); CHLORIDE 103 mmol/L (101-111); CREATININE 2.5 mg/dL (0.4-1.0); DIGOXIN 0.7 ng/mL; GFR - MDRD 18 (>89); GLUCOSE 101 mg/dL (70-100); SODIUM 140 mmol/L (135-145)
[2019-11-10 16:19] LABS: BAND NEUTROPHILS % (MANUAL) 1 %; DIFFERENTIAL COMMENT MANUAL DIFFERENTIAL; EOSINOPHILS # (MANUAL) 2.2 10^3/uL (0-0.7); LYMPHOCYTES % (MANUAL) 18 %; MONOCYTES # (MANUAL) 0.8 10^3/uL (0.0-1.0); PLATELET ESTIMATE, MANUAL NORMAL (130-450,000) (NORMAL); PLATELET MORPHOLOGY NORMAL APPEARANCE (NORMAL); RBC MORPHOLOGY (MULTIPLE) 1+ ANISOCYTOSIS (NORMAL)
== END 2019-11-10 23:59 | disposition home or self-care (01) ==
LOC: LAB.R 07:00
DX: N18.6 End stage renal disease (principal); L02.91 Cutaneous abscess, unspecified; I50.9 Heart failure, unspecified
CPT/HCPCS: 80048; 80162; 85025

== ENCOUNTER 2019-12-10 08:00 | Outpatient (CLI) | payer MEDICARE, MEDICAID ==
[2019-12-10 17:10] LABS: BUN - BLOOD UREA NITROGEN 44 mg/dL (6-20); CARBON DIOXIDE - CO2 24 mmol/L (21-32); CHLORIDE 105 mmol/L (101-111); CREATININE 2.4 mg/dL (0.4-1.0); DIGOXIN 0.6 ng/mL; GLUCOSE 103 mg/dL (70-100); SODIUM 141 mmol/L (135-145)
== END 2019-12-10 23:59 | disposition home or self-care (01) ==
LOC: LAB.R 08:00
DX: N18.6 End stage renal disease (principal); I50.40 Unspecified combined systolic (congestive) and diastolic (congestive) heart failure
CPT/HCPCS: 80048; 80162

== ENCOUNTER 2020-02-09 08:00 | Outpatient (CLI) | payer MEDICARE, MEDICAID ==
[2020-02-09 11:51] LABS: BUN - BLOOD UREA NITROGEN 46 mg/dL (6-20); CALCIUM 8.9 mg/dL (8.5-10.3); CARBON DIOXIDE - CO2 25 mmol/L (21-32); CHLORIDE 104 mmol/L (101-111); DIGOXIN 0.3 ng/mL; GLUCOSE 145 mg/dL (70-100); SODIUM 138 mmol/L (135-145)
== END 2020-02-09 23:59 | disposition home or self-care (01) ==
LOC: LAB.R 08:00
DX: I48.91 Unspecified atrial fibrillation (principal); I50.9 Heart failure, unspecified
CPT/HCPCS: 80048; 80162

== ENCOUNTER 2020-04-15 08:00 | Outpatient (CLI) | payer MEDICARE, MEDICAID ==
[2020-04-15 16:31] LABS: CALCIUM 8.8 mg/dL (8.5-10.3); CREATININE 2.5 mg/dL (0.4-1.0)
== END 2020-04-15 23:59 | disposition home or self-care (01) ==
LOC: LAB.R 08:00
PROVIDERS: ATTEND Family Medicine
DX: N18.9 Chronic kidney disease, unspecified (principal)
CPT/HCPCS: 80048

== ENCOUNTER 2020-06-02 15:47 | Outpatient (CLI) | payer MEDICARE, MEDICAID | END 2020-06-02 15:48 | disposition critical access hospital (66) | LOC: EMS 15:47 | PROVIDERS: ATTEND Surgery | DX: R23.8 Other skin changes (principal) | CPT/HCPCS: A0425; A0429 ==

== ENCOUNTER 2020-06-02 15:57 | Emergency (ER) | payer MEDICARE, MEDICAID ==
--- NOTE | 2020-06-02 17:02 | ED Physician Documentation ---
PD HPI SKIN - Stated complaint Stated Complaint: BLISTERS - Chief complaint Chief Complaint: Wound - History obtained from History obtained from: Patient - History of Present Illness Timing - onset: How many days ago (staff at [facility] noted the patient to have diffuse scratch viveros and discrete fluid filled blisters without redness nor purulence. Sent for eval. Unclear if PMD there had evaluated.) Timing - duration: Days (her info from [facility] lists chronic pruritis as a diagnosis and she gets Benadryl qHS on DEC. Apparently current degree of scratching is new. No apparent recent change in meds.) Timing - details: Gradual onset Location: [place] Quality / character: Itchy, Vesicular Associated symptoms: No: Fever, N/V/D Recently seen: Not recently seen Review of Systems Unable to obtain: Dementia Constitutional: denies: Fever Respiratory: denies: Cough GI: denies: Vomiting, Diarrhea : reports: Incontinent PD PAST MEDICAL HISTORY - Past Medical History Past Medical History: Yes Cardiovascular: Congestive heart failure, Hypertension, Atrial fibrillation, Arrhythmia Neuro: Dementia Endocrine/Autoimmune: Type 2 diabetes : Renal insuffiency Other Past Medical History: COVID in December 2019 - Past Surgical History Past Surgical History: No - Present Medications Home Medications: Ambulatory Orders Medication Instructions Recorded Confirmed Aspirin [Aspir 81] 81 mg PO DAILY 06/25/13 05/29/17 Cetirizine [ZyrTEC] 10 mg PO ONCE 06/25/13 05/29/17 Furosemide 20 mg PO DAILY 06/25/13 05/29/17 Meclizine [Antivert] 12.5 mg PO Q6H 06/25/13 05/29/17 Potassium Chloride [Klor-Con] 20 meq PO DAILY 06/25/13 05/29/17 allopurinoL [Allopurinol] 300 mg PO DAILY 06/25/13 05/29/17 raNITIdine HCL [Ranitidine HCl] 150 mg PO DAILY 06/25/13 05/29/17 Atorvastatin [Lipitor] 20 mg PO DAILY 05/29/17 05/29/17 Digoxin [Lanoxin] 125 mcg PO DAILY 05/29/17 05/29/17 Metoprolol Tartrate 25 mg PO BID 05/29/17 05/29/17 Prazosin [Minipress] 1 mg PO DAILY 08/08/17 08/08/17 polyethylene glycoL 3350 [Miralax] 17 g PO DAILY 05/29/17 05/29/17 Levofloxacin [Levaquin] 500 mg PO DAILY #5 tablet 06/01/17 Cetirizine [ZyrTEC] 10 mg PO DAILY #30 tablet 06/02/20 dexAMETHasone [Decadron] 4 mg PO DAILY #5 tablet 06/02/20 - Allergies Allergies/Adverse Reactions: Allergies Allergy/AdvReac Type Severity Reaction Status Date / Time No Known Drug Allergies Allergy Verified 06/02/20 16:06 - Social History Does the pt smoke?: No Smoking Status: Never smoker Does the pt drink ETOH?: No Does the pt have substance abuse?: No - POLST Patient has POLST: Yes POLST Status: DNR PD ED PE NORMAL - Vitals Vital signs reviewed: Yes - General General: No acute distress, Well developed/nourished, Other (rouses with tactile and some with verbal. Mostly yells for people to "go away" when stimulated. ) - HEENT HEENT: Pharynx benign - Neck Neck: Supple, no meningeal sign - Cardiac Cardiac: RRR, No murmur - Respiratory Respiratory: Clear bilaterally - Abdomen Abdomen: Soft, Non tender, Non distended - Derm Derm: Normal color, Other (diffuse scratch viveros c/w fingernail scratching. There are small discrete clear fluid blisters on skin, without any redness nor inflammation. No purulence. They are all small, under 1 cm. No bullae. ) Results - Vitals Vitals: Vital Signs - 24 hr 06/02/20 06/02/20 06/02/20 16:07 18:43 20:45 Temperature 37.1 C Heart Rate 62 70 76 Respiratory 18 18 20 Rate Blood Pressure 154/64 H 119/60 144/63 H O2 Saturation 97 100 100 Oxygen O2 Source Room air - Labs Labs: Microbiology 06/02/20 17:24 Wound Culture - Preliminary Leg - Right Laboratory Tests 06/02/20 06/02/20 17:40 17:40 WBC 11.7 H RBC 3.43 L Hgb 10.4 L Hct 33.3 L MCV 97.1 MCH 30.3 MCHC 31.2 L RDW 14.6 Plt Count 326 MPV 9.7 Neut # (Auto) Not Reportable Lymph # (Auto) Not Reportable [place] # (Auto) Not Reportable Eos # (Auto) Not Reportable Baso # (Auto) Not Reportable Absolute Nucleated RBC Not Reportable Total Counted 100 Band Neuts % (Manual) 1 Abnorm Lymph % (Manual) 0 Nucleated RBC % Not Reportable Neutrophils # (Manual) 7.4 H Lymphocytes # (Manual) 1.4 L Monocytes # (Manual) 0.7 Eosinophils # (Manual) 2.2 H Basophils # (Manual) 0.0 Differential Comment MANUAL DIFFERENTIAL Manual Slide Review Indicated WBC Morphology NORMAL APPEARANCE Platelet Estimate NORMAL (130-450,000) Platelet Morphology NORMAL APPEARANCE RBC Morph Micro Appear NORMAL APPEARANCE Sodium 140 Potassium 4.9 Chloride 102 Carbon Dioxide 25 Anion Gap 13.0 BUN 47 H Creatinine 2.7 H Estimated GFR (MDRD) 17 L Glucose 126 H Calcium 9.3 Total Bilirubin < 0.2 L AST 16 ALT 15 Alkaline Phosphatase 129 H Total Protein 7.0 Albumin 3.5 Globulin 3.5 Albumin/Globulin Ratio 1.0 Lipase 75 H PD MEDICAL DECISION MAKING - ED course Complexity details: reviewed old records, reviewed results (labs are at about baseline. CRF and so consider pruritis due to renal failure. Can add cetirizine daily. Short term can give steroid burst for 5 days. Blister opened and culture obtained, but does not have erythema to suggest bullous impetigo nor SSS. No oral lesions for SJ. Consider med allergy.), considered differential Departure - Departure Disposition: 01 Home, Self Care Clinical Impression: Generalized pruritus, Blister of skin Condition: Stable Record reviewed to determine appropriate education?: Yes Follow-Up: Phong Alvarez, [Primary Care Provider] - Prescriptions: dexAMETHasone [Decadron] 4 mg PO DAILY #5 tablet Cetirizine [ZyrTEC] 10 mg PO DAILY #30 tablet Comments: I did do a culture from 1 of the blisters. It did not look purulent nor obvious infection. We will see if the culture shows any bacterial growth. Meanwhile add cetirizine daily for itchiness. Consider with your primary care, given the ongoing itchiness the consideration of possible medication reaction. They may want to discontinue medicine at a time and see if that makes a difference. Common medication allergies could be furosemide. I do not see aspirin on your medicine list as this would be another possibility. Otherwise we can add Decadron daily for several days and see if it decreases the general itchiness. Discharge Date/Time: 06/02/20 20:45
[2020-06-02] MEDS: DEXAMETHASONE 10 MG/ML VIAL PO STA ×2 (17:41→17:46)
[2020-06-02] MEDS: CHERRY SYRUP 10 ML UDC PO ONE ×2 (17:41→17:46)
[2020-06-02] MEDS: CETIRIZINE 10 MG TABLET PO STA ×2 (17:41→17:46)
[2020-06-02 17:46] LABS: BASOPHILS % (AUTO) 0.3 %; EOSINOPHILS % (AUTO) 26.1 %; HGB - HEMOGLOBIN 10.4 g/dL (12.0-16.0); LYMPHOCYTES % (AUTO) 10.1 %; MEAN CORPUSCULAR HEMOGLOBIN 30.3 pg (27.0-31.0); MEAN CORPUSCULAR HGB CONC 31.2 g/dL (32.0-36.0); MEAN CORPUSCULAR VOLUME 97.1 fL (81.0-99.0); MEAN PLATELET VOLUME 9.7 fL (7.9-10.8); MONOCYTES % (AUTO) 6.6 %; NEUTROPHILS % (AUTO) 56.1 %; PLT - PLATELET COUNT 326 10^3/uL (130-450); RED BLOOD COUNT 3.43 10^6/uL (4.20-5.40); RED CELL DISTRIBUTION WIDTH 14.6 % (12.0-15.0); WHITE BLOOD COUNT 11.7 x10^3/uL (4.8-10.8)
[2020-06-02 17:51] LABS: ABNORMAL LYMPHS % (MANUAL) 0 %
[2020-06-02 18:00] LABS: ALBUMIN 3.5 g/dL (3.2-5.5); ALKALINE PHOSPHATASE 129 IU/L (42-121); ALT ALANINE AMINOTRANSFERASE 15 IU/L (10-60); AST ASPARTATE AMINOTRANSFERASE 16 IU/L (10-42); BILIRUBIN,TOTAL < 0.2 mg/dL (0.2-1.0); BUN - BLOOD UREA NITROGEN 47 mg/dL (6-20); CALCIUM 9.3 mg/dL (8.5-10.3); CARBON DIOXIDE - CO2 25 mmol/L (21-32); CHLORIDE 102 mmol/L (101-111); CREATININE 2.7 mg/dL (0.4-1.0); GLUCOSE 126 mg/dL (70-100); LIPASE 75 U/L (22-51); SODIUM 140 mmol/L (135-145)
[2020-06-02] MEDS ORDERED: TRIAMCINOLONE 40 MG/ML VIAL IM STA (18:02)
[2020-06-02 18:29] LABS: BAND NEUTROPHILS % (MANUAL) 1 %; DIFFERENTIAL COMMENT MANUAL DIFFERENTIAL; EOSINOPHILS # (MANUAL) 2.2 10^3/uL (0-0.7); LYMPHOCYTES # (MANUAL) 1.4 10^3/uL (1.5-3.5); LYMPHOCYTES % (MANUAL) 12 %; MONOCYTES # (MANUAL) 0.7 10^3/uL (0.0-1.0); PLATELET ESTIMATE, MANUAL NORMAL (130-450,000) (NORMAL); PLATELET MORPHOLOGY NORMAL APPEARANCE (NORMAL); RBC MORPHOLOGY (MULTIPLE) NORMAL APPEARANCE (NORMAL)
[2020-06-02 20:45] VITALS: BP 144/63
== END 2020-06-02 20:45 | disposition home or self-care (01) ==
LOC: EDUNIT# → ED 15:57
DX: L29.9 Pruritus, unspecified (principal); R23.8 Other skin changes; F03.90 Unspecified dementia, unspecified severity, without behavioral disturbance, psychotic disturbance, mood disturbance, and anxiety; I11.0 Hypertensive heart disease with heart failure; I50.9 Heart failure, unspecified; I48.91 Unspecified atrial fibrillation; E11.9 Type 2 diabetes mellitus without complications; Z86.19 Personal history of other infectious and parasitic diseases; Z66 Do not resuscitate
CPT/HCPCS: 36415; 80053; 83690; 85025; 87070; 87181; 87205; 96372; 99283; 99284; A9270

== ENCOUNTER 2020-06-02 20:48 | Outpatient (CLI) | payer MEDICARE, MEDICAID | END 2020-06-02 20:49 | disposition home or self-care (01) | LOC: EMS 20:48 | PROVIDERS: ATTEND Surgery | DX: R23.8 Other skin changes (principal); F03.90 Unspecified dementia, unspecified severity, without behavioral disturbance, psychotic disturbance, mood disturbance, and anxiety; Z74.01 Bed confinement status | CPT/HCPCS: A0425; A0428 ==

== ENCOUNTER 2020-06-08 20:30 | Outpatient (CLI) | payer MEDICARE, MEDICAID ==
[2020-06-08 21:16] LABS: BASOPHILS # (AUTO) 0.1 10^3/uL (0.0-0.1); BASOPHILS % (AUTO) 0.7 %; EOSINOPHILS # (AUTO) 0.5 10^3/uL (0.0-0.7); EOSINOPHILS % (AUTO) 2.6 %; HGB - HEMOGLOBIN 9.9 g/dL (12.0-16.0); LYMPHOCYTES # (AUTO) 2.2 10^3/uL (1.5-3.5); LYMPHOCYTES % (AUTO) 11.3 %; MEAN CORPUSCULAR HEMOGLOBIN 29.6 pg (27.0-31.0); MEAN CORPUSCULAR HGB CONC 29.5 g/dL (32.0-36.0); MEAN CORPUSCULAR VOLUME 100.3 fL (81.0-99.0); MONOCYTES # (AUTO) 0.9 10^3/uL (0.0-1.0); MONOCYTES % (AUTO) 4.5 %; NEUTROPHILS # (AUTO) 14.9 10^3/uL (1.5-6.6); NEUTROPHILS % (AUTO) 76.4 %; PLT - PLATELET COUNT 412 10^3/uL (130-450); RED BLOOD COUNT 3.35 10^6/uL (4.20-5.40); RED CELL DISTRIBUTION WIDTH 14.8 % (12.0-15.0); WHITE BLOOD COUNT 19.5 x10^3/uL (4.8-10.8)
[2020-06-08 21:26] LABS: CALCIUM 9.2 mg/dL (8.5-10.3); CREATININE 2.4 mg/dL (0.4-1.0)
[2020-06-08 22:45] LABS: PLATELET ESTIMATE, MANUAL NORMAL (130-450,000) (NORMAL); PLATELET MORPHOLOGY NORMAL APPEARANCE (NORMAL)
[2020-06-08 22:52] LABS: DIFFERENTIAL COMMENT MANUAL=AUTO DIFF
== END 2020-06-08 23:59 | disposition home or self-care (01) ==
LOC: LAB.R 20:30
DX: I50.9 Heart failure, unspecified (principal); M10.00 Idiopathic gout, unspecified site; L02.91 Cutaneous abscess, unspecified; N18.9 Chronic kidney disease, unspecified
CPT/HCPCS: 80048; 82728; 85025

== ENCOUNTER 2020-06-09 13:52 | Outpatient (CLI) | payer MEDICARE, MEDICAID | END 2020-06-09 23:59 | disposition critical access hospital (66) | LOC: EMS 13:52 | PROVIDERS: ATTEND Surgery | DX: R23.8 Other skin changes (principal); L29.9 Pruritus, unspecified; S90.822A Blister (nonthermal), left foot, initial encounter; S90.821A Blister (nonthermal), right foot, initial encounter; X58.XXXA Exposure to other specified factors, initial encounter ==

== ENCOUNTER 2020-06-09 14:06 | Emergency (ER) | payer MEDICARE, MEDICAID ==
[2020-06-09] MEDS ORDERED: VANCOMYCIN INJ 1 GM in SODIUM CHLORIDE 0.9% 500 ML IV STA (15:41)
[2020-06-09] MEDS ORDERED: SODIUM CHLORIDE 0.9% 1,000 ML IV STA (15:41)
--- NOTE | 2020-06-09 15:42 | ED Physician Documentation ---
PD HPI SKIN - Stated complaint Stated Complaint: SKIN BLISTERS - Chief complaint Chief Complaint: Wound - History obtained from History obtained from: EMS, Caregiver ([facility] providers) - History of Present Illness Timing - onset: How many weeks ago Timing - details: Gradual onset Quality / character: Itchy, Vesicular Associated symptoms: No: Fever Contributing factors: No: Recent illness Similar symptoms before: No diagnosis (pt with this scratching and itching for weeks. Rx with antihistamine orally. Had steroid dose decadron 6 days ago. Had culture of blisters on leg and grew MSSA. started on Keflex 3 days ago. Not improving. ED note: consider drug allergy and to d/c some of her meds. No apparent med changes by [facility].) Recently seen: Emergency Dept (client at [facility]. Patient with MAR and basic info packet. No provider notes seen in packet from [facility]. looks like pt with Keflex Rx 3 days ago. Seen in ER 6 days ago for this and few days prior to that.) Review of Systems Unable to obtain: Dementia, Other (info from Caregiver nursing notes.) Constitutional: denies: Fever Nose: denies: Rhinorrhea / runny nose Respiratory: denies: Cough GI: denies: Vomiting, Diarrhea Neurologic: reports: Generalized weakness, Confused (baseline dementia) PD PAST MEDICAL HISTORY - Past Medical History Past Medical History: Yes Cardiovascular: Congestive heart failure, Hypertension, Atrial fibrillation, Arrhythmia Neuro: Dementia Endocrine/Autoimmune: Type 2 diabetes : Renal insuffiency - Past Surgical History Past Surgical History: No - Present Medications Home Medications: Ambulatory Orders Medication Instructions Recorded Confirmed Aspirin [Aspir 81] 81 mg PO DAILY 06/25/13 05/29/17 Cetirizine [ZyrTEC] 10 mg PO ONCE 06/25/13 05/29/17 Furosemide 20 mg PO DAILY 06/25/13 05/29/17 Meclizine [Antivert] 12.5 mg PO Q6H 06/25/13 05/29/17 Potassium Chloride [Klor-Con] 20 meq PO DAILY 06/25/13 05/29/17 allopurinoL [Allopurinol] 300 mg PO DAILY 06/25/13 05/29/17 raNITIdine HCL [Ranitidine HCl] 150 mg PO DAILY 06/25/13 05/29/17 Atorvastatin [Lipitor] 20 mg PO DAILY 05/29/17 05/29/17 Digoxin [Lanoxin] 125 mcg PO DAILY 05/29/17 05/29/17 Metoprolol Tartrate 25 mg PO BID 05/29/17 05/29/17 Prazosin [Minipress] 1 mg PO DAILY 05/29/17 05/29/17 polyethylene glycoL 3350 [Miralax] 17 g PO DAILY 05/29/17 05/29/17 Levofloxacin [Levaquin] 500 mg PO DAILY #5 tablet 06/01/17 Cetirizine [ZyrTEC] 10 mg PO DAILY #30 tablet 06/02/20 dexAMETHasone [Decadron] 4 mg PO DAILY #5 tablet 06/02/20 Chlorhexidine Gluconate [Hibiclens] 15 ml TP DAILY #236 ml 06/09/20 Doxycycline Monohydrate 100 mg PO BID #14 tablet 06/09/20 dexAMETHasone [Decadron] 4 mg PO DAILY #5 tablet 06/09/20 - Allergies Allergies/Adverse Reactions: Allergies Allergy/AdvReac Type Severity Reaction Status Date / Time No Known Drug Allergies Allergy Verified 06/09/20 14:17 - Social History Does the pt smoke?: No Smoking Status: Never smoker Does the pt drink ETOH?: No Does the pt have substance abuse?: No - Immunizations Immunizations are current?: Yes - POLST Patient has POLST: Yes POLST Status: DNR PD ED PE NORMAL - Vitals Vital signs reviewed: Yes - General General: Alert and oriented X 3, No acute distress, Well developed/nourished - HEENT HEENT: Pharynx benign, Other (no noted lip/oral breakdown. ) - Neck Neck: Supple, no meningeal sign, No adenopathy - Cardiac Cardiac: RRR, No murmur - Respiratory Respiratory: Clear bilaterally - Abdomen Abdomen: Soft, Non tender - Derm Derm: Normal color, Warm and dry - Extremities Extremities: Other (diffuse scratch viveros. Scattered small variable sized blisters (not exactly large enough for bullae consistently). Clear fluid apparent in them. Slightly red base, but no surrounding redness to each. ) - Neuro Eye Opening: To Voice Motor: Localizes to Pain Verbal: Confused GCS Score: 12 Results - Vitals Vitals: Vital Signs - 24 hr 06/09/20 06/09/20 06/09/20 14:11 16:17 18:53 Temperature 36.2 C L Heart Rate 60 65 62 Respiratory 16 14 16 Rate Blood Pressure 183/67 H 178/88 H 167/81 H O2 Saturation 100 98 96 Oxygen O2 Source Room air - Labs Labs: Microbiology 06/09/20 15:31 Wound Culture - Preliminary Hand - Left Laboratory Tests 06/09/20 06/09/20 16:22 16:22 WBC 18.5 H RBC 3.46 L Hgb 10.5 L Hct 33.4 L MCV 96.5 MCH 30.3 MCHC 31.4 L RDW 14.7 Plt Count 367 MPV 9.2 Neut # (Auto) 9.7 H Lymph # (Auto) 2.4 [place] # (Auto) 1.0 Eos # (Auto) 4.8 H Baso # (Auto) 0.1 Absolute Nucleated RBC 0.00 Band Neuts % (Manual) Not Reportable Abnorm Lymph % (Manual) Not Reportable Nucleated RBC % 0.0 Neutrophils # (Manual) Not Reportable Lymphocytes # (Manual) Not Reportable Monocytes # (Manual) Not Reportable Eosinophils # (Manual) Not Reportable Basophils # (Manual) Not Reportable Platelet Estimate NORMAL (130-450,000) Platelet Morphology NORMAL APPEARANCE RBC Morph Micro Appear NORMAL APPEARANCE Sodium 142 Potassium 4.5 Chloride 101 Carbon Dioxide 29 Anion Gap 12.0 BUN 59 H Creatinine 2.5 H Estimated GFR (MDRD) 18 L Glucose 112 H Calcium 9.3 Total Bilirubin 0.4 AST 15 ALT 17 Alkaline Phosphatase 91 Total Protein 6.9 Albumin 3.4 Globulin 3.5 Albumin/Globulin Ratio 1.0 Lipase 81 H PD MEDICAL DECISION MAKING - ED course Complexity details: reviewed old records, reviewed results (recent culture), considered differential (still seems likely allergic reaction; consider drug allergy. Does not have oral lesions to suggest SJS/TEN. Is on Keflex for MSSA on recent skin culture. Consider change to Doxy. repeat culture obtained today as well. To d/c couple more likely culprit meds. Steroids. DOxy.), d/w patient Departure - Departure Disposition: 01 Home, Self Care Clinical Impression: Pruritic rash, Bullous staphylococcal impetigo, Bullous pemphigoid Allergic reaction Qualifiers: Encounter type: subsequent encounter Qualified Code(s): T78.40XD - Allergy, unspecified, subsequent encounter Condition: Stable Record reviewed to determine appropriate education?: Yes Follow-Up: Phong Alvarez, DO [Primary Care Provider] - Prescriptions: dexAMETHasone [Decadron] 4 mg PO DAILY #5 tablet Doxycycline Monohydrate 100 mg PO BID #14 tablet Chlorhexidine Gluconate [Hibiclens] 15 ml TP DAILY #236 ml Comments: I would suggest a dermatology consult for further evaluation. Given the persistence of the itchiness and rash, would need to consider drug allergy. Most common of these from the medicines on your list could be the Lasix and aspirin. I would suggest discontinuing the aspirin and Lasix. I would also discontinue the cephalexin antibiotic at this time. Add doxycycline antibiotic twice daily for a week for better staph coverage based on the recent skin culture. Decadron daily for the next 5 days to help with itchiness. Use chlorhexidine body wash whole body daily to decrease the germ load on the skin and see if that reduces the number of blisters. Discharge Date/Time: 06/09/20 19:34
[2020-06-09] MEDS ORDERED: VANCOMYCIN INJ 1 GM, VANCOMYCIN INJ 500 MG in SODIUM CHLORIDE 0.9% 500 ML IV STA (15:45)
[2020-06-09 16:34] LABS: BASOPHILS # (AUTO) 0.1 10^3/uL (0.0-0.1); BASOPHILS % (AUTO) 0.4 %; EOSINOPHILS # (AUTO) 4.8 10^3/uL (0.0-0.7); EOSINOPHILS % (AUTO) 25.9 %; HGB - HEMOGLOBIN 10.5 g/dL (12.0-16.0); LYMPHOCYTES # (AUTO) 2.4 10^3/uL (1.5-3.5); LYMPHOCYTES % (AUTO) 12.8 %; MEAN CORPUSCULAR HEMOGLOBIN 30.3 pg (27.0-31.0); MEAN CORPUSCULAR HGB CONC 31.4 g/dL (32.0-36.0); MEAN CORPUSCULAR VOLUME 96.5 fL (81.0-99.0); MEAN PLATELET VOLUME 9.2 fL (7.9-10.8); MONOCYTES % (AUTO) 5.5 %; NEUTROPHILS # (AUTO) 9.7 10^3/uL (1.5-6.6); NEUTROPHILS % (AUTO) 52.6 %; PLT - PLATELET COUNT 367 10^3/uL (130-450); RED BLOOD COUNT 3.46 10^6/uL (4.20-5.40); RED CELL DISTRIBUTION WIDTH 14.7 % (12.0-15.0); WHITE BLOOD COUNT 18.5 x10^3/uL (4.8-10.8)
[2020-06-09 16:43] LABS: ALBUMIN 3.4 g/dL (3.2-5.5); BILIRUBIN,TOTAL 0.4 mg/dL (0.2-1.0); CALCIUM 9.3 mg/dL (8.5-10.3); CREATININE 2.5 mg/dL (0.4-1.0); TOTAL PROTEIN 6.9 g/dL (6.7-8.2)
[2020-06-09 17:32] LABS: RBC MORPHOLOGY (MULTIPLE) NORMAL APPEARANCE (NORMAL)
[2020-06-09 17:33] LABS: PLATELET ESTIMATE, MANUAL NORMAL (130-450,000) (NORMAL); PLATELET MORPHOLOGY NORMAL APPEARANCE (NORMAL)
[2020-06-09 18:54] VITALS: BP 167/81
== END 2020-06-09 19:34 | disposition home or self-care (01) ==
LOC: EDUNIT# → ED 14:06
DX: L01.03 Bullous impetigo (principal); B95.61 Methicillin susceptible Staphylococcus aureus infection as the cause of diseases classified elsewhere; L12.0 Bullous pemphigoid; L29.9 Pruritus, unspecified; T78.40XA Allergy, unspecified, initial encounter; Y92.129 Unspecified place in nursing home as the place of occurrence of the external cause; E11.9 Type 2 diabetes mellitus without complications; F03.90 Unspecified dementia, unspecified severity, without behavioral disturbance, psychotic disturbance, mood disturbance, and anxiety; Z79.82 Long term (current) use of aspirin; I11.0 Hypertensive heart disease with heart failure; I50.9 Heart failure, unspecified
CPT/HCPCS: 36415; 80053; 83690; 85025; 87070; 87205; 96365; 96366; 99284; J3370

== ENCOUNTER 2020-06-09 19:33 | Outpatient (CLI) | payer MEDICARE, MEDICAID | END 2020-06-09 23:59 | disposition home or self-care (01) | LOC: EMS 19:33 | PROVIDERS: ATTEND Surgery | DX: L29.9 Pruritus, unspecified (principal); R21 Rash and other nonspecific skin eruption; F03.90 Unspecified dementia, unspecified severity, without behavioral disturbance, psychotic disturbance, mood disturbance, and anxiety; Z74.01 Bed confinement status | CPT/HCPCS: A0425; A0428; A0429 ==

== ENCOUNTER 2020-07-07 20:20 | Outpatient (CLI) | payer MEDICARE, MEDICAID | END 2020-07-07 20:21 | disposition critical access hospital (66) | LOC: EMS 20:20 | PROVIDERS: ATTEND Surgery | DX: R50.9 Fever, unspecified (principal); R23.8 Other skin changes | CPT/HCPCS: A0425; A0429 ==

== ENCOUNTER 2020-07-07 20:24 | Inpatient (IN) | payer MEDICARE, MEDICAID ==
[2020-07-07] MEDS ORDERED: SODIUM CHLORIDE 0.9% 1,000 ML IV STA (20:43)
--- NOTE | 2020-07-07 21:09 | ED Physician Documentation ---
PD HPI SKIN - Stated complaint Stated Complaint: FEVER - Chief complaint Chief Complaint: Wound - History obtained from History obtained from: EMS, Other (records from) - History of Present Illness Timing - onset: How many months ago (2) Timing - duration: Months (2) Timing - details: Gradual onset, Still present, Other (now worse) Location: [place] Quality / character: Itchy, Discolored, Vesicular, Crusted, Draining Associated symptoms: Fever Contributing factors: Exposed to medication Similar symptoms before: Diagnosis (bullous pephigoid, impetigo) Recently seen: Emergency Dept ([facility] 06-21-2020 and here 06-09-2020) - Additional information Additional information: 89-year-old female resident of [facility] with a history of advanced dementia congestive heart failure chronic kidney disease diabetes hypertension and reflux as well as idiopathic gout has developed a body wide rash consisting of small and large blisters and excoriation. The skin is pruritic and the patient has been treated with more than 1 course of steroid and antibiotic without change in her rash. Tonight she is brought to the hospital by ambulance with fever not responding to Tylenol. The patient has not able to give any specific history herself as she does have advanced dementia. She is a DNR DNI with comfort measures. She appears uncomfortable. It is reported that she has had COVID-19 [place] [facility] [place] I do not have confirmation of this in [employer]. Review of Systems Unable to obtain: Dementia, Uncooperative Constitutional: reports: Fever GI: denies: Vomiting PD PAST MEDICAL HISTORY - Past Medical History Past Medical History: Yes Cardiovascular: Congestive heart failure, Hypertension, Atrial fibrillation, Arrhythmia Neuro: Dementia Endocrine/Autoimmune: Type 2 diabetes : Renal insuffiency - Past Surgical History Past Surgical History: No - Present Medications Home Medications: Ambulatory Orders Medication Instructions Recorded Confirmed Aspirin [Aspir 81] 81 mg PO DAILY 06/25/13 05/29/17 Cetirizine [ZyrTEC] 10 mg PO ONCE 06/25/13 05/29/17 Furosemide 20 mg PO DAILY 06/25/13 05/29/17 Meclizine [Antivert] 12.5 mg PO Q6H 06/25/13 05/29/17 Potassium Chloride [Klor-Con] 20 meq PO DAILY 06/25/13 05/29/17 allopurinoL [Allopurinol] 300 mg PO DAILY 06/25/13 05/29/17 raNITIdine HCL [Ranitidine HCl] 150 mg PO DAILY 06/25/13 05/29/17 Atorvastatin [Lipitor] 20 mg PO DAILY 05/29/17 05/29/17 Digoxin [Lanoxin] 125 mcg PO DAILY 05/29/17 05/29/17 Metoprolol Tartrate 25 mg PO BID 05/29/17 05/29/17 Prazosin [Minipress] 1 mg PO DAILY 05/29/17 05/29/17 polyethylene glycoL 3350 [Miralax] 17 g PO DAILY 05/29/17 05/29/17 Levofloxacin [Levaquin] 500 mg PO DAILY #5 tablet 06/01/17 Cetirizine [ZyrTEC] 10 mg PO DAILY #30 tablet 06/02/20 dexAMETHasone [Decadron] 4 mg PO DAILY #5 tablet 06/02/20 Chlorhexidine Gluconate [Hibiclens] 15 ml TP DAILY #236 ml 06/09/20 Doxycycline Monohydrate 100 mg PO BID #14 tablet 06/09/20 dexAMETHasone [Decadron] 4 mg PO DAILY #5 tablet 06/09/20 - Allergies Allergies/Adverse Reactions: Allergies Allergy/AdvReac Type Severity Reaction Status Date / Time No Known Drug Allergies Allergy Verified 07/07/20 20:55 - Social History Does the pt smoke?: No Smoking Status: Never smoker Does the pt drink ETOH?: No Does the pt have substance abuse?: No - Immunizations Immunizations are current?: Yes - POLST Patient has POLST: Yes POLST Status: DNR PD ED PE NORMAL - Vitals Vital signs reviewed: Yes (febrile, tachycardic and hypertensive with wide pulse pressure) - General General: Well developed/nourished, Other (The patient is covered in blisters and excoriated skin, she is not cooperative with exam and makes little verbal comment except to say no. ) - HEENT HEENT: Atraumatic, PERRL, EOMI, Other (She is able to open her mouth to yell and I am not able to see any involvment of the mucous membranes ) - Neck Neck: Supple, no meningeal sign, No bony TTP - Cardiac Cardiac: RRR, No murmur - Respiratory Respiratory: No respiratory distress, Other (distant breath sounds no focal rhonchi/wheeze) - Abdomen Abdomen: Soft, Non tender - Back Back: No CVA TTP, No spinal TTP - Derm Derm: Other (The skin is covered with a vesicular rash that appears to go through a process of a vesicle forming erupting scabbing over having desquamated skin underneath and surrounding erythema. There are areas across the abdominal wall and chest of excoriation and across the legs of excoriation. ) - Extremities Extremities: No deformity, No edema - Neuro Neuro: No motor deficit, No sensory deficit Eye Opening: To Voice Motor: Obeys Commands Verbal: Confused GCS Score: 13 - Psych Psych: Other (mood is withdrawn and the affect is anger) PD ED PE EXPANDED - Free text exam Free text exam: Examination of the skin shows a generalized rash that appears to progress from a blister of the skin with catheterized excoriation and surrounding erythema. There are both vesicles and bullae present. The worst of this appears to be on the right elbow where there is a significant amount of excoriated skin with c lear drainage.Some of the areas especially on the legs and across the abdomen are excoriated and appear similar to what would be seen with scabies. However closely examined these appear to be a part of the same entire picture. There does appear to be surrounding erythema and swelling consistent with superinfection. Results - Vitals Vitals: Vital Signs - 24 hr 07/07/20 07/07/20 07/07/20 20:24 22:23 23:00 Temperature 38.2 C H Heart Rate 102 H 103 H 91 Respiratory 22 24 25 H Rate Blood Pressure 140/51 H 163/57 H 141/54 H O2 Saturation 97 100 90 L Oxygen O2 Source Room air - Labs Labs: Laboratory Tests 07/07/20 07/07/20 07/07/20 21:50 22:09 22:09 WBC 12.1 H RBC 3.08 L Hgb 9.2 L Hct 29.0 L MCV 94.2 MCH 29.9 MCHC 31.7 L RDW 14.0 Plt Count 312 MPV 9.5 Neut # (Auto) 7.9 H Lymph # (Auto) 1.0 L [place] # (Auto) 0.7 Eos # (Auto) 2.3 H Baso # (Auto) 0.0 Absolute Nucleated RBC 0.00 Band Neuts % (Manual) Not Reportable Abnorm Lymph % (Manual) Not Reportable Nucleated RBC % 0.0 Neutrophils # (Manual) Not Reportable Lymphocytes # (Manual) Not Reportable Monocytes # (Manual) Not Reportable Eosinophils # (Manual) Not Reportable Basophils # (Manual) Not Reportable Differential Comment MANUAL=AUTO DIFF Platelet Estimate NORMAL (130-450,000) RBC Morph Micro Appear NORMAL APPEARANCE Sodium 139 Potassium 4.2 Chloride 105 Carbon Dioxide 25 Anion Gap 9.0 BUN 45 H Creatinine 2.8 H Estimated GFR (MDRD) 16 L Glucose 132 H Lactic Acid Calcium 7.8 L Magnesium 1.8 Total Bilirubin 0.6 AST 15 ALT 20 Alkaline Phosphatase 67 C-Reactive Protein B-Natriuretic Peptide Total Protein 5.8 L Albumin 2.3 L Globulin 3.5 Albumin/Globulin Ratio 0.7 L Lipase 33 Urine Color YELLOW Urine Clarity CLEAR Urine pH 7.5 Ur Specific Guy 1.020 Urine Protein >=300 H Urine Glucose (UA) NEGATIVE Urine Ketones NEGATIVE Urine Occult Blood NEGATIVE Urine Nitrite NEGATIVE Urine Bilirubin NEGATIVE Urine Urobilinogen 0.2 (NORMAL) Ur Leukocyte Esterase NEGATIVE Urine RBC 0-5 Urine WBC 4-5 Ur Squamous Epith Cells RARE Squamous Urine Bacteria None Seen Ur Microscopic Review INDICATED Urine Culture Comments NOT INDICATED 07/07/20 07/07/20 07/07/20 22:09 22:09 22:09 WBC RBC Hgb Hct MCV MCH MCHC RDW Plt Count MPV Neut # (Auto) Lymph # (Auto) [place] # (Auto) Eos # (Auto) Baso # (Auto) Absolute Nucleated RBC Band Neuts % (Manual) Abnorm Lymph % (Manual) Nucleated RBC % Neutrophils # (Manual) Lymphocytes # (Manual) Monocytes # (Manual) Eosinophils # (Manual) Basophils # (Manual) Differential Comment Platelet Estimate RBC Morph Micro Appear Sodium Potassium Chloride Carbon Dioxide Anion Gap BUN Creatinine Estimated GFR (MDRD) Glucose Lactic Acid 1.1 Calcium Magnesium Total Bilirubin AST ALT Alkaline Phosphatase C-Reactive Protein 15.3 H B-Natriuretic Peptide 387 H Total Protein Albumin Globulin Albumin/Globulin Ratio Lipase Urine Color Urine Clarity Urine pH Ur Specific Guy Urine Protein Urine Glucose (UA) Urine Ketones Urine Occult Blood Urine Nitrite Urine Bilirubin Urine Urobilinogen Ur Leukocyte Esterase Urine RBC Urine WBC Ur Squamous Epith Cells Urine Bacteria Ur Microscopic Review Urine Culture Comments - Rads (name of study) chest Radiology: Prelim report reviewed (Impression: 1. Bilateral pulmonary opacities secondary to pneumonia versus edema.), EMP read indepedently, See rad report Procedures - IVC sono (time) 2310 Bedside IVC sono: IVC measures (cm) (0.87), IVC collapsed c insp (cm) (complete), Dehydration (est 2 liter deficit) PD MEDICAL DECISION MAKING - ED course Complexity details: reviewed old records, reviewed results, re-evaluated patient, considered differential, d/w family ED course: 89-year-old female with a history of COVID-19 several months ago has developed a rash over her entire body with blistering that dries up and scabs over and has some excoriated skin left. There is now the appearance of superinfection to the skin in multiple parts of the patient's body. Most significantly in the right elbow. She was sent to the emergency department tonight for fever and she has had stable vital signs while she has been here. A chest x-ray demonstrates what appears to be infiltrate versus edema and the patient has a collapsing IVC. If she has edema it is not from failure. Chest x-ray has appearance of an atypical pneumonia. The patient is not particularly hypoxic despite the appearance of her chest x-ray. Case was reviewed with Dr. Guerrero and considered in the differential are bullous pemphigoid which the patient was diagnosed with at [facility] last week, a form of toxic epidermal necrolysis possibly from 1 of her medications including the allopurinol (she has been on for years).In addition a post COVID rash has been described similar to what the patient is exhibiting. She has not particularly responded to any of the treatments provided with antibiotic and steroid. I discussed the case with the patient's son and he has not seen his mother since the pandemic is started. He is in agreement with treatment here at [facility] with a goal of comfort. Dr. Guerrero has agreed to admit the patient into the hospital and recommends a dose of 2 g of ceftriaxone and 100 mg of doxycycline intravenously. We did discuss biopsy of the skin as this has been present for 2 months without specific explanation. When the patient arrived to the emergency department she was not cooperative and she appeared miserable. We took it upon ourselves to administer ketamine 200mg IV (3.5mg/kg) to the patient for us to obtain our specimens and establish an IV. This helped quite a bit with the patient's level of comfort. Full PPE including face shield used in evaluation. Departure - Departure Disposition: [address] [facility] DC/Xfer Clinical Impression: Atypical pneumonia, Blister of skin, Generalized pruritus, Superinfection Condition: Fair Discharge Date/Time: 07/08/20 00:11
[2020-07-07] MEDS ORDERED: KETAMINE 500 MG/10 ML VIAL IM STA (21:25)
[2020-07-07 22:08] LABS: BILIRUBIN,URINE NEGATIVE (NEGATIVE); GLUCOSE, URINE (UA) NEGATIVE (NEGATIVE); KETONES,URINE (UA) NEGATIVE (NEGATIVE); LEUKOCYTE ESTERASE, URINE NEGATIVE (NEGATIVE); NITRITE,URINE NEGATIVE (NEGATIVE); OCCULT BLOOD,URINE NEGATIVE (NEGATIVE); PH,URINE 7.5 PH (5.0-7.5); PROTEIN,URINE >=300 mg/dL (NEGATIVE); UROBILINOGEN,URINE 0.2 (NORMAL) E.U./dL (NORMAL)
[2020-07-07 22:20] LABS: CLARITY,URINE CLEAR (CLEAR)
[2020-07-07 22:27] LABS: BASOPHILS % (AUTO) 0.2 %; EOSINOPHILS # (AUTO) 2.3 10^3/uL (0.0-0.7); EOSINOPHILS % (AUTO) 19.2 %; HGB - HEMOGLOBIN 9.2 g/dL (12.0-16.0); LYMPHOCYTES % (AUTO) 8.5 %; MEAN CORPUSCULAR HEMOGLOBIN 29.9 pg (27.0-31.0); MEAN CORPUSCULAR HGB CONC 31.7 g/dL (32.0-36.0); MEAN CORPUSCULAR VOLUME 94.2 fL (81.0-99.0); MEAN PLATELET VOLUME 9.5 fL (7.9-10.8); MONOCYTES # (AUTO) 0.7 10^3/uL (0.0-1.0); MONOCYTES % (AUTO) 5.7 %; NEUTROPHILS # (AUTO) 7.9 10^3/uL (1.5-6.6); NEUTROPHILS % (AUTO) 65.7 %; PLT - PLATELET COUNT 312 10^3/uL (130-450); RED BLOOD COUNT 3.08 10^6/uL (4.20-5.40); WHITE BLOOD COUNT 12.1 x10^3/uL (4.8-10.8)
[2020-07-07 22:32] LABS: BACTERIA,URINE None Seen /HPF (None Seen); RBC,URINE 0-5 /HPF (0-5); SQUAMOUS EPITHELIAL CELL,UR RARE Squamous (<= Few)
[2020-07-07 22:40] LABS: ALBUMIN 2.3 g/dL (3.2-5.5); ALBUMIN/GLOBULIN RATIO 0.7 (1.0-2.2); BILIRUBIN,TOTAL 0.6 mg/dL (0.2-1.0); CALCIUM 7.8 mg/dL (8.5-10.3); CREATININE 2.8 mg/dL (0.4-1.0); MAGNESIUM 1.8 mg/dL (1.7-2.8); TOTAL PROTEIN 5.8 g/dL (6.7-8.2)
[2020-07-07 22:56] LABS: DIFFERENTIAL COMMENT MANUAL=AUTO DIFF; PLATELET ESTIMATE, MANUAL NORMAL (130-450,000) (NORMAL); RBC MORPHOLOGY (MULTIPLE) NORMAL APPEARANCE (NORMAL)
[2020-07-07] MEDS ORDERED: ONDANSETRON 4 MG/2 ML VIAL IVP PRN (23:29)
[2020-07-07] MEDS ORDERED: ACETAMINOPHEN 325 MG TABLET PO PRN (23:29)
[2020-07-07] MEDS ORDERED: LACTATED RINGERS 1,000 ML IV ONE (23:33)
--- NOTE | 2020-07-07 23:36 | HISTORY & PHYSICAL EXAMINATION ---
Chief Complaint - Chief Complaint Chief Complaint: Fever History of Present Illness - Admitted From Admitted From:: [facility] - History Obtained From Records Reviewed: Yes History obtained from: ER Physician, EMR, Outside records Exam Limitations: Patient has advanced dementia and is unable to provide a history. - History of Present Illness HPI Comment/Other: This is a 89-year-old female with a past medical history significant for paroxysmal atrial fibrillation not on anticoagulation, chronic kidney disease stage IV, advanced dementia, hypertension, type 2 diabetes mellitus, gout who presents today from [facility] after he was noted to have a fever of 102 F. History is obtained from the ER provider as well as the EMR as the patient has advanced dementia and is unable to provide a history. The patient has been seen multiple times in the ER over the past 6 weeks for blisters and a rash over her trunk and upper extremities. This has reportedly been going on for the past 2 months. She was seen in our emergency department on June 02 and at that time, there was low concern for infection and she was prescribed Decadron and Zyrtec. She was seen in the emergency department a week later as she had not improved. She had already been started on Keflex as wound cultures from the prior ER visit grew MSSA. During this ER visit, she was started on Decadron and the Keflex was discontinued and she was started on doxycycline. 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 Patient was reportedly seen later on at [facility] and diagnosed with bullous pemphigoid. She was once again trialed on steroids and a course of dapsone. Today she returns to our emergency department due to the fever that was not relieved by Tylenol. The patient reportedly has had COVID-19 back in December. The emergency department provider spoke with the patient's POA who confirms the patient is a DNR with limited interventions. In the emergency department, she was found to be febrile with temperature of 38.2 C. Her heart rate is 102. Her blood pressure was 140/51. Her respiratory was 22 and she was saturating 97% on room air. Labs were significant for a white count of 12.1. Her differential was significant for an eosinophil count of 2.3. This was previously elevated at 4.8 back on June 09. Urinalysis was unremarkable. Creatinine was 2.8 and her baseline is around 2.5. CRP was elevated at 15.3. Chest x-ray was obtained which was concerning for pulmonary vascular congestion versus atypical pneumonia. She received ceftriaxone and doxycycline in the emergency department. Given the above findings, medicine was consulted for admission. I did attempt to speak with her son, Klever who is the POA, but I was unable to reach him. She will be made a DNR per at the documents received from [facility] and what the ER provider was told when he spoke with Klever. History - Past Medical History Cardiovascular: reports: Congestive heart failure, Hypertension, Atrial fibrillation, Arrhythmia Neuro: reports: Dementia Endocrine/Autoimmune: reports: Type 2 diabetes : reports: Renal insuffiency Musculoskeletal: reports: Gout MRSA Hx?: No - Family & Social History Family History Comment/Other: Unable to obtain a current family history. Review of prior records reveal the patient's mother had diabetes as well as dementia. Living arrangement: assisted Social History Notes: I am unable to update the social history as the patient cannot provide a history. Review of prior records note that she had been living at [facility] since approximately 2015. She had been living with her son prior to this but he had difficulty taking care of her due to dementia. - Substance History Use: Uses substance without health or social issues: NONE - POLST Patient has POLST: Yes POLST Status: DNR Meds/Allgy - Home Medications Home Medications: Ambulatory Orders Medication Instructions Recorded Confirmed Aspirin [Aspir 81] 81 mg PO DAILY 06/25/13 05/29/17 Cetirizine [ZyrTEC] 10 mg PO ONCE 06/25/13 05/29/17 Furosemide 20 mg PO DAILY 06/25/13 05/29/17 Meclizine [Antivert] 12.5 mg PO Q6H 06/25/13 05/29/17 Potassium Chloride [Klor-Con] 20 meq PO DAILY 06/25/13 05/29/17 allopurinoL [Allopurinol] 300 mg PO DAILY 06/25/13 05/29/17 raNITIdine HCL [Ranitidine HCl] 150 mg PO DAILY 06/25/13 05/29/17 Atorvastatin [Lipitor] 20 mg PO DAILY 05/29/17 05/29/17 Digoxin [Lanoxin] 125 mcg PO DAILY 05/29/17 05/29/17 Metoprolol Tartrate 25 mg PO BID 05/29/17 05/29/17 Prazosin [Minipress] 1 mg PO DAILY 05/29/17 05/29/17 polyethylene glycoL 3350 [Miralax] 17 g PO DAILY 05/29/17 05/29/17 Levofloxacin [Levaquin] 500 mg PO DAILY #5 tablet 06/01/17 Cetirizine [ZyrTEC] 10 mg PO DAILY #30 tablet 06/02/20 dexAMETHasone [Decadron] 4 mg PO DAILY #5 tablet 06/02/20 Chlorhexidine Gluconate [Hibiclens] 15 ml TP DAILY #236 ml 06/09/20 Doxycycline Monohydrate 100 mg PO BID #14 tablet 06/09/20 dexAMETHasone [Decadron] 4 mg PO DAILY #5 tablet 06/09/20 - Allergies Allergies/Adverse Reactions: Allergies Allergy/AdvReac Type Severity Reaction Status Date / Time No Known Drug Allergies Allergy Verified 07/07/20 20:55 Review of Systems - All Other Systems All Other Systems: reports: Other (Unable to obtain due to her advanced dementia as she is unable to converse.) Prior Level of Functionality: She resides at [facility] and is dependent for all of her ADLs. Exam - Vital Signs Vital Signs: Vital Signs x48h Temp Pulse Resp BP Pulse Ox 07/07/20 22:23 103 H 24 163/57 H 100 07/07/20 20:24 38.2 C H 102 H 22 140/51 H 97 - Physical Exam General Appearance: positive: Moderate distress, Other (She will yell in pain whenever she is examined. She does not answer questions) Eyes Bilateral: positive: Conjunctivae nml ENT: positive: Pharynx nml. negative: Oral lesions Respiratory: positive: No respiratory distress, Other (She is tachypneic with diminished breath sounds. No wheezes. No obvious rhonchi although physical exam is limited due to body habitus.). negative: Wheezes Cardiovascular: positive: No murmur, Tachycardia. negative: Irregularly irregular, Bradycardia, Systolic murmur Abdomen: positive: Non-tender, No distention. negative: Tenderness, Guarding, Rebound Skin: positive: Skin rash (She has multiple bullae located over her trunk and upper extremities. She also has multiple areas likely due to excoriation. There are also areas over her bilateral upper extremities and trunk that appear to represent ruptured bullae with some erosions.), Other (The medial aspect of her right upper extremity is erythematous and warm to touch.) Extremities: positive: Pedal edema (Trace to +1 pitting edema in bilaeral lower extremities.) Neurologic/Psychiatric: positive: Other (She does not appear to have any focal deficits on exam. She does not respond to questions.) Sepsis Event Note (H) - Evaluation Current Stage of Sepsis: Sepsis Possible source of Sepsis: positive: Pulmonary, Skin/soft tissue - Sepsis Criteria Sepsis Criteria: Recorded Temperature greater than 38.3C or Less than 36C, Recorded Heart Rate greater than 90 bpm, WBC count greater than 12,000 or less than 4000 Conclusion/Plan - Problem List (1) Sepsis Conclusion/Plan: She meets sepsis criteria given her elevated white count, fever, tachycardia. This may be due to the pneumonia or the cellulitis. Her fever may also be due to her blisters which may represent a more systemic allergic reaction. Fortunately, her blood pressure is stable and her lactic acid is normal. We will start her empirically on ceftriaxone and doxycycline IV. We will give her a liter of lactated Ringer's and continue her on IV maintenance fluids. Trend h er CBC and CRP. Follow-up blood cultures. (2) Atypical pneumonia Conclusion/Plan: Her chest x-ray is concerning for atypical pneumonia. This is less likely heart failure given her relatively low BNP. Fortunately, she is not hypoxic but she is slightly tachypneic. Her white count is also elevated. The patient reportedly had COVID-19 back in December. We will start her empirically on doxycycline and ceftriaxone which will cover for community-acquired pneumonia as well as the cellulitis and the possible bullous pemphigoid. We will check her for COVID 19. Check for mycoplasma. Trend white count. (3) Blister of skin Conclusion/Plan: Differential remains quite broad for this. This could be bullous pemphigoid with superimposed cellulitis. This could also be DRESS but this felt less likely as her symptoms have been going on for 2 months without any obvious new medication except for the dapsone which was initiated after her symptoms had already begun. This could also be pemphigoid associated with mycoplasma pneumonia given her chest x-ray findings. Interestingly, her eosinophil count is quite elevated and was even higher back in May. At this time, we will start her on doxycycline and ceftriaxone for any possible superimposed cellulitic infection. We will also start her on prednisone 40 mg daily. We will hold all nonessential home medications at this time including allopurinol and aspirin. Trend CRP. We will not put her on telemetry due to the extent of the blisters and rash as this causes the patient a lot of pain. Will discuss with family regarding goals of care as she may benefit from a biopsy and can discuss with general surgery if this could be done while she is hospitalized. (4) Cellulitis of right upper extremity Conclusion/Plan: It appears she has superimposed cellulitis infection of her her skin blisters and wounds. Prior cultures have grown MSSA. We will start her on ceftriaxone and doxycycline IV. Repeat wound cultures were obtained in the emergency department and we will follow these up. Trend her CRP. Follow-up blood cultures. (5) CKD (chronic kidney disease), stage IV Conclusion/Plan: She has CKD stage IV which may be due to her diabetes or hypertension. Her baseline creatinine is around 2.5-2.7. Her creatinine today is 2.8. We will place her on IV hydration. Avoid nephrotoxins. Monitor renal function and urine output while hospitalized. (6) Type 2 diabetes mellitus Conclusion/Plan: She is not on any medications. Her last A1c was 5.7%. We will place her on a pured diet. We will place her on sliding scale and blood glucose checks with meals. (7) Paroxysmal atrial fibrillation Conclusion/Plan: She is currently in a sinus rhythm while on telemetry in the emergency departm ent. She is not on anticoagulation. We will resume her home metoprolol. We will not place her on telemetry given the blisters and rash over her trunk and upper extremities. (8) Dementia Conclusion/Plan: She has advanced dementia and she is currently reportedly at her baseline. Delirium precautions. - Lab Results Lab results reviewed: Yes Fish Bones: 07/07/20 22:09 07/07/20 22:09 - Diagnostic Imaging Results Diagnostic Imaging Results: positive: Final report reviewed, Read independently Diagnostic Imaging Results Comments: Findings concerning for pulmonary vascular congestion or atypical pneumonia on chest x-ray. Core Measures - Anticipated LOS I expect patient to be DC'd or transferred within 96 hours.: Yes - Issues Hospital Issues and Management Plan: 89-year-old female with advanced dementia presents from a half-way facility due to fever and worsening blisters over her trunk and upper extremit ies. Chest x-ray is concerning for atypical pneumonia. Concern is also for superimposed cellulitic infection. We will treat her empirically with doxycycline and ceftriaxone IV. We will also start her on prednisone given the concern for an allergic reaction. - DVT/VTE - Prophylaxis VTE/DVT Device ordered at admit?: Yes VTE/DVT Prophylaxis med ordered at admit?: Yes
[2020-07-07] MEDS ORDERED: DOXYCYCLINE INJ 100 MG in SODIUM CHLORIDE 0.9% MINIBAG 100 ML IV STA (23:52)
[2020-07-07] MEDS ORDERED: cefTRIAXone 2 GM in SODIUM CHLORIDE 0.9% MINIBAG 100 ML IV STA (23:52)
[2020-07-07] MEDS ORDERED: methylPREDNISolone SUCCINATE 40 MG/ML VIAL IVP STA (23:53)
[2020-07-08] MEDS: SODIUM CHLORIDE FLUSH 0.9% 10 ML SYRINGE IVP SCH ×3 (00:39→16:48)
[2020-07-08] MEDS: LACTATED RINGERS 1,000 ML IV SCH ×3 (02:11→20:52)
[2020-07-08 05:59] LABS: BASOPHILS % (AUTO) 0.2 %; EOSINOPHILS # (AUTO) 0.4 10^3/uL (0.0-0.7); EOSINOPHILS % (AUTO) 3.8 %; HGB - HEMOGLOBIN 8.8 g/dL (12.0-16.0); LYMPHOCYTES # (AUTO) 0.6 10^3/uL (1.5-3.5); LYMPHOCYTES % (AUTO) 5.7 %; MEAN CORPUSCULAR HEMOGLOBIN 28.9 pg (27.0-31.0); MEAN CORPUSCULAR HGB CONC 30.7 g/dL (32.0-36.0); MEAN CORPUSCULAR VOLUME 94.4 fL (81.0-99.0); MEAN PLATELET VOLUME 9.8 fL (7.9-10.8); MONOCYTES # (AUTO) 0.1 10^3/uL (0.0-1.0); MONOCYTES % (AUTO) 1.3 %; NEUTROPHILS # (AUTO) 8.7 10^3/uL (1.5-6.6); NEUTROPHILS % (AUTO) 88.2 %; PLT - PLATELET COUNT 304 10^3/uL (130-450); RED BLOOD COUNT 3.04 10^6/uL (4.20-5.40); WHITE BLOOD COUNT 9.9 x10^3/uL (4.8-10.8)
[2020-07-08 06:12] LABS: CREATININE 2.5 mg/dL (0.4-1.0); CRP - C-REACTIVE PROTEIN 15.4 mg/dL (0-1.0); MAGNESIUM 1.8 mg/dL (1.7-2.8); PHOSPHORUS 3.9 mg/dL (2.5-4.6)
--- NOTE | 2020-07-08 08:39 | XRAY Report ---
PROCEDURE: Chest 1 View X-Ray INDICATIONS: chest pain TECHNIQUE: One view of the chest was acquired. COMPARISON: 05/29/2017 FINDINGS: Surgical changes and devices: None. Lungs and pleura: No pleural effusions or pneumothorax. Diffuse thickening of the interstitium bilat erally. Mediastinum: Mediastinal contours appear normal. Central vasculature is indistinct. Heart size is a t the upper limits of normal. Bones and chest wall: No suspicious bony lesions. Overlying soft tissues appear unremarkable. IMPRESSION: 1. Diffuse thickening of the interstitial markings and indistinct central vasculature. Findings most likely secondary to interstitial edema, CHF versus volume overload. Interstitial pneumonitis may also be present. Correlate with lab values. 2. Concordant with preliminary report. Reviewed by: Chel Ha MD on 07/08/2020 8:38 AM PDT Approved by: Chel Ha MD on 07/08/2020 8:38 AM PDT Station ID: [id number]
[2020-07-08] MEDS ORDERED: cefTRIAXone 2 GM in SODIUM CHLORIDE 0.9% MINIBAG 100 ML IV SCH (09:00)
[2020-07-08] MEDS ORDERED: SODIUM CHLORIDE 0.9% MINIBAG 100 ML IV ONE (10:39)
[2020-07-08] MEDS: HEPARIN 5,000 UNIT/ML VIAL SUBQ SCH ×2 (11:04→20:50)
[2020-07-08] MEDS: MORPHINE 2 MG/ML CARPUJECT IVP PRN ×3 (11:07→20:50)
[2020-07-08] MEDS: INSULIN ASPART 300 UNIT/3 ML PEN SUBQ SCH ×4 (11:10→21:26)
[2020-07-08] MEDS: predniSONE 20 MG TABLET PO SCH (11:23)
[2020-07-08] MEDS: DOXYCYCLINE INJ 100 MG in SODIUM CHLORIDE 0.9% MINIBAG 100 ML IV SCH ×2 (11:26→20:51)
[2020-07-08] MEDS: SODIUM CHLORIDE FLUSH 0.9% 10 ML SYRINGE IVP PRN (11:30)
--- NOTE | 2020-07-08 13:57 | PROVIDER PROGRESS NOTE ---
Subjective - Prog Note Date Prog Note Date: 07/08/20 Prog Note Time: 14:21 - Subjective Subjective: Unfortunately, she is resisting care. She is yelling, pulling against the nurses, trying to get out of bed. She has refused her morning medications. She refused her prednisone. She refused breakfast. She is not responding to cues or prompts. She will look away. If a spoon is placed on her lips she pushes the nurse away, and screams. I spoke to Dr. Olayinka Alvarez, medical records director at [facility]. While we have a copy of a POST that has her as a full code, it is not signed by any provider. He has a copy signed by Dr. Nini Frias from 2017 where she is a DO NOT RESUSCITATE and limited intervention. They have been struggling with trying to figure out why she has a rash. This detail, and con text of the larger picture of comfort measures has been the thing that is come to the forefront. The family is willing to do whatever the residential suggest. So when the nurses asked if they could send her to the hospital, the family felt that they could trust the nurses for that to be a good idea. They are not quite understanding that they are elderly mom, may not necessarily benefit from constant hospital readmissions. They also do not understand that we do not have dermatology care here. They had sent her to [facility] in the context of getting a second opinion for her drug rash. But they did not receive the answer they hope to receive at [facility] either. I did explain to Dr. Alvarez that if they really wanted to focus on the rash, they needed to send her to a facility that had a manager audio on staff and would be willing to see the patient in the hospital. Current Medications - Current Medications Current Medications: Active Medications Acetaminophen (Tylenol) 650 mg PO Q4HR PRN PRN Reason: Pain 1 to 4 Heparin Sodium (Porcine) () 5,000 unit SUBQ BID [facility] Last Admin: 07/08/20 11:04 Dose: 5,000 unit Documented by: Hydroxyzine Pamoate (Vistaril) 25 mg PO Q6HR PRN PRN Reason: ITCHING Doxycycline Hyclate 100 mg/ (Sodium Chloride) 100 mls @ 100 mls/hr IV BID [facility] Last Infusion: 07/08/20 13:07 Dose: Infused Documented by: Lactated Ringer's (Lr) 1,000 mls @ 100 mls/hr IV .Q10H [facility] Last Admin: 07/08/20 11:30 Dose: 100 mls/hr Documented by: Ceftriaxone Sodium 2 gm/ (Sodium Chloride) 100 mls @ 200 mls/hr IV DAILY [facility] Insulin Aspart (Novolog) 1 - 5 unit SUBQ 0800,1200,1700,2100 [facility]; Protocol Last Admin: 07/08/20 11:20 Dose: Not Given Documented by: Morphine Sulfate (Morphine (Carpuject)) 2 mg IVP Q2HR PRN PRN Reason: Pain 8 to 10 Last Admin: 07/08/20 11:07 Dose: 2 mg Documented by: Ondansetron HCl (Zofran Inj) 4 mg IVP Q6HR PRN PRN Reason: Nausea / Vomiting Prednisone (Deltasone) 40 mg PO DAILYWM [facility] Last Admin: 07/08/20 11:23 Dose: Not Given Documented by: Sodium Chloride (Normal Saline Flush 0.9%) 10 ml IVP PRN PRN PRN Reason: NEEDED PER PROVIDER ORDERS Last Admin: 07/08/20 11:30 Dose: 10 ml Documented by: Sodium Chloride (Normal Saline Flush 0.9%) 10 ml IVP 0100,0900,1700 [facility] Last Admin: 07/08/20 11:07 Dose: 10 ml Documented by: Aspirin [Aspir 81] 81 mg PO DAILY 06/25/13 Potassium Chloride [Klor-Con] 20 meq PO Q48H 06/25/13 Metoprolol Tartrate 25 mg PO BID 05/29/17 polyethylene glycoL 3350 [Miralax] 17 g PO DAILY 05/29/17 Amlodipine Besylate [Norvasc] 2.5 mg PO DAILY PRN 07/08/20 Atorvastatin Calcium 20 mg PO DAILY 07/08/20 Furosemide [Lasix] 40 mg PO Q48H 07/08/20 amLODIPine [Norvasc] 5 mg PO DAILY 07/08/20 hydrOXYzine HCL [Hydroxyzine HCl] 25 mg PO Q8H PRN 07/08/20 Objective - Vital Signs/Intake & Output Reviewed Vital Signs: Yes Intake & Output: Intake & Output 07/05/20 07/06/20 07/07/20 07/08/20 23:59 23:59 23:59 23:59 Intake Total 2145.300 Balance 2145.300 - Objective General Appearance: positive: Alert, Anxious, Other (Elderly white female. Completely disoriented to person place time. Unable to meaningfully interact with us. 5 feet 4 inches tall weighs 57.5 kg.) Eyes Bilateral: positive: PERRL ENT: positive: Pharynx nml, Other (No oral mucosal ulcers, no petechiae) Neck: positive: No JVD Respiratory: positive: Chest non-tender, No respiratory distress, Other (Yelling does not cause her to be short of breath). negative: Wheezes, Rales, Rhonchi Cardiovascular: positive: Regular rate & rhythm, Systolic murmur. negative: Gal lop/S4, Friction rub Abdomen: positive: Non-tender, No organomegaly, Nml bowel sounds, No distention Skin: positive: Other (Diffuse morbilliform rash, some of it blistering and drying. Some of it looks like impetigo. Many photos in the EMR provided by nursing.) Extremities: positive: Full ROM, No pedal edema Neurologic/Psychiatric: positive: CN's nml (2-12), Motor nml, Disoriented to person, Disoriented to place, Disoriented to time, Other (Unfortunately this elderly demented female does not know where she is, why she is here, is most likely frightened from what I can assess. She is yelling, resisting care, and occasionally hitting out at the nurses or aids.) - Lab Results Fish Bones: 07/08/20 05:40 07/08/20 05:40 Other Labs: Lab Results x24hrs 07/08/20 07/08/20 07/07/20 Range/Units 05:40 05:40 22:09 WBC 9.9 (4.8-10.8) x10^3/uL RBC 3.04 L (4.20-5.40) 10^6/uL Hgb 8.8 L (12.0-16.0) g/dL Hct 28.7 L (37.0-47.0) % MCV 94.4 (81.0-99.0) fL MCH 28.9 (27.0-31.0) pg MCHC 30.7 L (32.0-36.0) g/dL RDW 14.0 (12.0-15.0) % Plt Count 304 (130-450) 10^3/uL MPV 9.8 (7.9-10.8) fL Neut # (Auto) 8.7 H (1.5-6.6) 10^3/uL Lymph # (Auto) 0.6 L (1.5-3.5) 10^3/uL Collier # (Auto) 0.1 (0.0-1.0) 10^3/uL Eos # (Auto) 0.4 (0.0-0.7) 10^3/uL Baso # (Auto) 0.0 (0.0-0.1) 10^3/uL Absolute Nucleated RBC 0.00 x10^3/uL Band Neuts % (Manual) Abnorm Lymph % (Manual) Nucleated RBC % 0.0 /100WBC Neutrophils # (Manual) Lymphocytes # (Manual) Monocytes # (Manual) Eosinophils # (Manual) Basophils # (Manual) Differential Comment Platelet Estimate (NORMAL) RBC Morph Micro Appear (NORMAL) Sodium 141 (135-145) mmol/L Potassium 4.3 (3.5-5.0) mmol/L Chloride 109 (101-111) mmol/L Carbon Dioxide 22 (21-32) mmol/L Anion Gap 10.0 (6-13) BUN 42 H (6-20) mg/dL Creatinine 2.5 H (0.4-1.0) mg/dL Estimated GFR (MDRD) 18 L (>89) Glucose 192 H (70-100) mg/dL Lactic Acid (0.5-2.2) mmol/L Calcium 8.0 L (8.5-10.3) mg/dL Phosphorus 3.9 (2.5-4.6) mg/dL Magnesium 1.8 (1.7-2.8) mg/dL Total Bilirubin (0.2-1.0) mg/dL AST (10-42) IU/L ALT (10-60) IU/L Alkaline Phosphatase (42-121) IU/L C-Reactive Protein 15.4 H 15.3 H (0-1.0) mg/dL B-Natriuretic Peptide (5-100) pg/mL Total Protein (6.7-8.2) g/dL Albumin (3.2-5.5) g/dL Globulin (2.1-4.2) g/dL Albumin/Globulin Ratio (1.0-2.2) Lipase (22-51) U/L Urine Color Urine Clarity (CLEAR) Urine pH (5.0-7.5) PH Ur Specific Prospect (1.002-1.030) Urine Protein (NEGATIVE) mg/dL Urine Glucose (UA) (NEGATIVE) mg/dL Urine Ketones (NEGATIVE) mg/dL Urine Occult Blood (NEGATIVE) Urine Nitrite (NEGATIVE) Urine Bilirubin (NEGATIVE) Urine Urobilinogen (NORMAL) E.U./dL Ur Leukocyte Esterase (NEGATIVE) Urine RBC (0-5) /HPF Urine WBC (0-5) /HPF Ur Squamous Epith Cells (<= Few) Urine Bacteria (None Seen) /HPF Ur Microscopic Review Urine Culture Comments 07/07/20 07/07/20 07/07/20 Range/Units 22:09 22:09 22:09 WBC (4.8-10.8) x10^3/uL RBC (4.20-5.40) 10^6/uL Hgb (12.0-16.0) g/dL Hct (37.0-47.0) % MCV (81.0-99.0) fL MCH (27.0-31.0) pg MCHC (32.0-36.0) g/dL RDW (12.0-15.0) % Plt Count (130-450) 10^3/uL MPV (7.9-10.8) fL Neut # (Auto) (1.5-6.6) 10^3/uL Lymph # (Auto) (1.5-3.5) 10^3/uL Collier # (Auto) (0.0-1.0) 10^3/uL Eos # (Auto) (0.0-0.7) 10^3/uL Baso # (Auto) (0.0-0.1) 10^3/uL Absolute Nucleated RBC x10^3/uL Band Neuts % (Manual) Abnorm Lymph % (Manual) Nucleated RBC % /100WBC Neutrophils # (Manual) Lymphocytes # (Manual) Monocytes # (Manual) Eosinophils # (Manual) Basophils # (Manual) Differential Comment Platelet Estimate (NORMAL) RBC Morph Micro Appear (NORMAL) Sodium 139 (135-145) mmol/L Potassium 4.2 (3.5-5.0) mmol/L Chloride 105 (101-111) mmol/L Carbon Dioxide 25 (21-32) mmol/L Anion Gap 9.0 (6-13) BUN 45 H (6-20) mg/dL Creatinine 2.8 H (0.4-1.0) mg/dL Estimated GFR (MDRD) 16 L (>89) Glucose 132 H (70-100) mg/dL Lactic Acid 1.1 (0.5-2.2) mmol/L Calcium 7.8 L (8.5-10.3) mg/dL Phosphorus (2.5-4.6) mg/dL Magnesium 1.8 (1.7-2.8) mg/dL Total Bilirubin 0.6 (0.2-1.0) mg/dL AST 15 (10-42) IU/L ALT 20 (10-60) IU/L Alkaline Phosphatase 67 (42-121) IU/L C-Reactive Protein (0-1.0) mg/dL B-Natriuretic Peptide 387 H (5-100) pg/mL Total Protein 5.8 L (6.7-8.2) g/dL Albumin 2.3 L (3.2-5.5) g/dL Globulin 3.5 (2.1-4.2) g/dL Albumin/Globulin Ratio 0.7 L (1.0-2.2) Lipase 33 (22-51) U/L Urine Color Urine Clarity (CLEAR) Urine pH (5.0-7.5) PH Ur Specific Prospect (1.002-1.030) Urine Protein (NEGATIVE) mg/dL Urine Glucose (UA) (NEGATIVE) mg/dL Urine Ketones (NEGATIVE) mg/dL Urine Occult Blood (NEGATIVE) Urine Nitrite (NEGATIVE) Urine Bilirubin (NEGATIVE) Urine Urobilinogen (NORMAL) E.U./dL Ur Leukocyte Esterase (NEGATIVE) Urine RBC (0-5) /HPF Urine WBC (0-5) /HPF Ur Squamous Epith Cells (<= Few) Urine Bacteria (None Seen) /HPF Ur Microscopic Review Urine Culture Comments 07/07/20 07/07/20 Range/Units 22:09 21:50 WBC 12.1 H (4.8-10.8) x10^3/uL RBC 3.08 L (4.20-5.40) 10^6/uL Hgb 9.2 L (12.0-16.0) g/dL Hct 29.0 L (37.0-47.0) % MCV 94.2 (81.0-99.0) fL MCH 29.9 (27.0-31.0) pg MCHC 31.7 L (32.0-36.0) g/dL RDW 14.0 (12.0-15.0) % Plt Count 312 (130-450) 10^3/uL MPV 9.5 (7.9-10.8) fL Neut # (Auto) 7.9 H (1.5-6.6) 10^3/uL Lymph # (Auto) 1.0 L (1.5-3.5) 10^3/uL Collier # (Auto) 0.7 (0.0-1.0) 10^3/uL Eos # (Auto) 2.3 H (0.0-0.7) 10^3/uL Baso # (Auto) 0.0 (0.0-0.1) 10^3/uL Absolute Nucleated RBC 0.00 x10^3/uL Band Neuts % (Manual) Not Reportable Abnorm Lymph % (Manual) Not Reportable Nucleated RBC % 0.0 /100WBC Neutrophils # (Manual) Not Reportable Lymphocytes # (Manual) Not Reportable Monocytes # (Manual) Not Reportable Eosinophils # (Manual) Not Reportable Basophils # (Manual) Not Reportable Differential Comment MANUAL=AUTO DIFF Platelet Estimate NORMAL (130-450,000) (NORMAL) RBC Morph Micro Appear NORMAL APPEARANCE (NORMAL) Sodium (135-145) mmol/L Potassium (3.5-5.0) mmol/L Chloride (101-111) mmol/L Carbon Dioxide (21-32) mmol/L Anion Gap (6-13) BUN (6-20) mg/dL Creatinine (0.4-1.0) mg/dL Estimated GFR (MDRD) (>89) Glucose (70-100) mg/dL Lactic Acid (0.5-2.2) mmol/L Calcium (8.5-10.3) mg/dL Phosphorus (2.5-4.6) mg/dL Magnesium (1.7-2.8) mg/dL Total Bilirubin (0.2-1.0) mg/dL AST (10-42) IU/L ALT (10-60) IU/L Alkaline Phosphatase (42-121) IU/L C-Reactive Protein (0-1.0) mg/dL B-Natriuretic Peptide (5-100) pg/mL Total Protein (6.7-8.2) g/dL Albumin (3.2-5.5) g/dL Globulin (2.1-4.2) g/dL Albumin/Globulin Ratio (1.0-2.2) Lipase (22-51) U/L Urine Color YELLOW Urine Clarity CLEAR (CLEAR) Urine pH 7.5 (5.0-7.5) PH Ur Specific Prospect 1.020 (1.002-1.030) Urine Protein >=300 H (NEGATIVE) mg/dL Urine Glucose (UA) NEGATIVE (NEGATIVE) mg/dL Urine Ketones NEGATIVE (NEGATIVE) mg/dL Urine Occult Blood NEGATIVE (NEGATIVE) Urine Nitrite NEGATIVE (NEGATIVE) Urine Bilirubin NEGATIVE (NEGATIVE) Urine Urobilinogen 0.2 (NORMAL) (NORMAL) E.U./dL Ur Leukocyte Esterase NEGATIVE (NEGATIVE) Urine RBC 0-5 (0-5) /HPF Urine WBC 4-5 (0-5) /HPF Ur Squamous Epith Cells RARE Squamous (<= Few) Urine Bacteria None Seen (None Seen) /HPF Ur Microscopic Review INDICATED Urine Culture Comments NOT INDICATED ABX Reporting Has patient been on IV antibiotics over the past 48 hours?: Yes Sepsis Event Note (H) - Evaluation Current Stage of Sepsis: Sepsis Possible source of Sepsis: positive: Pulmonary, Skin/soft tissue - Sepsis Criteria Sepsis Criteria: Recorded Temperature greater than 38.3C or Less than 36C, Re corded Heart Rate greater than 90 bpm, WBC count greater than 12,000 or less than 4000 Assessment/Plan - Problem List (1) Sepsis Impression: She met sepsis criteria on admission, given her elevated white count, fever, t achycardia. This may be due to the pneumonia or the cellulitis. Her fever may also be due to her blisters which may represent a more systemic allergic reaction. Fortunately, her blood pressure was stable and her lactic acid was normal. We started her empirically on ceftriaxone and doxycycline IV. We will gave her a liter of lactated Ringer's and continued her on IV maintenance fluids. Her WBC 12>>9 today No fever Creat better BP stable. Mild hypoxia on room air to 92%. I spoke to the [id number] and son today. Home number is supposed to be used after 5:00. His home number is [phone]. Cell phone is to be used during the day while he is at work. Number [phone]. And if I can get a hold of them that way I can call the [facility] supervisor at [facility] and leave a voicemail and they will get them. That number is [phone]. CODE STATUS it was discussed. Beginning of advance care planning conversation. In reviewing her POLST, she is a full code with limited interventions. He and [id number] both state that that is incorrect. She is to be a DNR with limited interventions. Plan: continue supportive care I will meet with the son tomorrow. He will be off work by noon. We can then do more advanced care planning conversation, and he can fill out a new POLST. (2) Atypical pneumonia Conclusion/Plan: Her chest x-ray is concerning for atypical pneumonia. This is less likely heart failure given her relatively low BNP. On admission to the ER she was not hypoxic but she was slightly tachypneic. Her white count was also elevated. The patient reportedly had COVID-19 back in December. We started her empirically on doxycycline and ceftriaxone which will cover for community-acquired pneumonia as well as the cellulitis and the possible bullous pemphigoid. WBC now nml and no fever. Plan: We will check her for COVID 19. That was sent out and pending. Check for mycoplasma. Also send out and pending. (3) Blister of skin Conclusion/Plan: Differential remains quite broad for this. This could be bullous pemphigoid with superimposed cellulitis. This could also be DRESS but this felt less likely as her symptoms have been going on for 2 months without any obvious new medication except for the dapsone which was initiated after her symptoms had already begun. This could also be pemphigoid associated with mycoplasma pneumonia given her chest x-ray findings. Interestingly, her eosinophil count is quite elevated and was even higher back in May. Allopurinol is associated with a lupus type rash. CRP 15.3>>15.4 Plan:Started her on doxycycline and ceftriaxone for any possible superimposed cellulitic infection. Started her on prednisone 40 mg daily. We will hold all nonessential home medications at this time including allopurinol and aspirin. We will not put her on telemetry due to the extent of the blisters and rash as this causes the patient a lot of pain. I spoke to family with regards to goals of care today. While I do feel that she should be evaluated, and treated, there is starting to wonder if maybe she should stay at a assisted facility with comfort measures only. The last time they saw her, in November 2019, she was alert, cheerful, very happy to see her son. She was some and they could have a conversation with. She has not been that person since she had COVID. As stated in problem #1, advance care planning conversation tomorrow with son in person. (4) Cellulitis of right upper extremity Conclusion/Plan: It appears she has superimposed cellulitis infection of her her skin blisters and wounds. Prior cultures have grown MSSA. Ceftriaxone and Doxy Day #2 Repeat wound cultures were obtained in the emergency department and we will follow these up. Trend her CRP. Follow-up blood cultures. (5) CKD (chronic kidney disease), stage IV Conclusion/Plan: She has CKD stage IV which may be due to her diabetes or hypertension. Her baseline creatinine is around 2.5-2.7. Her creatinine on admit 2.8>>2.5 today. Plan: On IV hydration. Avoid nephrotoxins. Monitor renal function and urine output while hospitalized. (6) Type 2 diabetes mellitus Conclusion/Plan: She is not on any medications. Her last A1c was 5.7%. We will place her on a pured diet. July 08, 2020: 178, 178 Plan: continue sliding scale and blood glucose checks with meals. (7) Paroxysmal atrial fibrillation Conclusion/Plan: She was in a sinus rhythm while on telemetry in the emergency department. She is not on anticoagulation. We will resume her home metoprolol. We will not place her on telemetry given the blisters and rash over her trunk and upper extremities. (8) Dementia Conclusion/Plan: She has advanced dementia and she is currently reportedly at her baseline. Delirium precautions.
--- NOTE | 2020-07-08 16:00 | PHARMACY PROGRESS NOTE ---
- Best Possible Medication History Admit Date and Time: 07/07/20 3074 Processed by: Pharmacy Medication History completed: Yes Patient Interview: Pt unable to participate Secondary Source(s): Facility MAR as ONLY source As the person ultimately responsible for medication therapy, providers are able to order a medication from an existing home medication list in [facility] via the "Reconcile Routine" prior to Confirmation of that medication by business support liaison. Such practice is discouraged except when the physician, in their clinical judgment, deems that a medical need exists for a medication without regard to previous use.
[2020-07-09] MEDS: SODIUM CHLORIDE FLUSH 0.9% 10 ML SYRINGE IVP SCH ×3 (02:38→19:28)
--- NOTE | 2020-07-09 08:36 | PROVIDER PROGRESS NOTE ---
Subjective - Prog Note Date Prog Note Date: 07/09/20 Prog Note Time: 08:56 - Subjective Subjective: She continues to refuse care. Nursing is asking if we can switch her to a different type of bathing solution to help with her skin. She is not eating. She is refusing to take her medications including the prednisone. At times she says "why are you people doing this to me, let me ". Current Medications - Current Medications Current Medications: Active Medications Acetaminophen (Tylenol) 650 mg PO Q4HR PRN PRN Reason: Pain 1 to 4 Heparin Sodium (Porcine) () 5,000 unit SUBQ BID [facility] Last Admin: 07/08/20 20:50 Dose: 5,000 unit Documented by: Hydroxyzine Pamoate (Vistaril) 25 mg PO Q6HR PRN PRN Reason: ITCHING Doxycycline Hyclate 100 mg/ (Sodium Chloride) 100 mls @ 100 mls/hr IV BID [facility] Last Infusion: 07/08/20 22:00 Dose: Infused Documented by: Lactated Ringer's (Lr) 1,000 mls @ 100 mls/hr IV .Q10H [facility] Last Infusion: 07/09/20 04:50 Dose: 0 mls/hr Documented by: Ceftriaxone Sodium 2 gm/ (Sodium Chloride) 100 mls @ 200 mls/hr IV DAILY [facility] Insulin Aspart (Novolog) 1 - 5 unit SUBQ 0800,1200,1700,2100 [facility]; Protocol Last Admin: 07/08/20 21:26 Dose: Not Given Documented by: Morphine Sulfate (Morphine (Carpuject)) 2 mg IVP Q2HR PRN PRN Reason: Pain 8 to 10 Last Admin: 07/08/20 20:50 Dose: 2 mg Documented by: Morphine Sulfate (Roxanol) 5 mg PO Q4HR PRN PRN Reason: PAIN Ondansetron HCl (Zofran Inj) 4 mg IVP Q6HR PRN PRN Reason: Nausea / Vomiting Prednisone (Deltasone) 40 mg PO DAILYWM [facility] Last Admin: 07/08/20 11:23 Dose: Not Given Documented by: Sodium Chloride (Normal Saline Flush 0.9%) 10 ml IVP PRN PRN PRN Reason: NEEDED PER PROVIDER ORDERS Last Admin: 07/08/20 11:30 Dose: 10 ml Documented by: Sodium Chloride (Normal Saline Flush 0.9%) 10 ml IVP 0100,0900,1700 MANJULA Last Admin: 07/09/20 02:38 Dose: Not Given Documented by: Aspirin [Aspir 81] 81 mg PO DAILY 06/25/13 Metoprolol Tartrate 25 mg PO BID 05/29/17 polyethylene glycoL 3350 [Miralax] 17 g PO DAILY 05/29/17 Acetaminophen [Tylenol] 650 mg PO Q8H PRN 07/08/20 Amlodipine Besylate [Norvasc] 2.5 mg PO DAILY PRN 07/08/20 Atorvastatin Calcium 20 mg PO QPM 07/08/20 Bisacodyl Supp [Dulcolax Supp] 10 mg RC Q24H PRN 07/08/20 Chlorhexidine Gluconate [Hibiclens] 15 ml TOP DAILY 07/08/20 Cholecalciferol [Vitamin D3] 50 mcg PO DAILY 07/08/20 Diphenhydramine HCl/Zinc Acet [Ra Anti-Itch 2%-0.1% Cream] 1 applic TOP QPM 06/22 05/10 Famotidine [Acid Controller] 20 mg PO BID 07/08/20 Furosemide [Lasix] 40 mg PO Q48H 07/08/20 Lidocaine HCl [Aspercreme] 1 applic TOP PRN PRN 07/08/20 Potassium Chloride 20 meq PO Q48H 07/08/20 amLODIPine [Norvasc] 5 mg PO DAILY 07/08/20 hydrOXYzine HCL [Hydroxyzine HCl] 25 mg PO Q8H PRN 07/08/20 traMADol [Ultram] 50 mg PO Q4H PRN 07/08/20 Objective - Vital Signs/Intake & Output Reviewed Vital Signs: Yes Vital Signs: Vital Signs x48h Temp Pulse Resp BP Pulse Ox 07/09/20 04:33 37.0 C 95 20 113/93 H 96 Intake & Output: Intake & Output 07/06/20 07/07/20 07/08/20 07/09/20 23:59 23:59 23:59 23:59 Intake Total 3181.967 796.667 Output Total 100 Balance 3081.967 796.667 - Objective General Appearance: positive: Other (When the room is dark, and no one is in the room she is quiet, sleeps. When I open the door, walk in and greet her, she is immediately trying to pull away even before I touched her. When nursing does try to help sit her up, or feed her she refuses. They did try and give her medicine for pain this) Eyes Bilateral: positive: PERRL ENT: positive: Dry mucous membranes Neck: positive: No JVD. negative: Lymphadenopathy (R), Lymphadenopathy (L) Respiratory: positive: Chest non-tender, No respiratory distress, Rhonchi. negative: Wheezes, Rales Cardiovascular: positive: Regular rate & rhythm, Systolic murmur. negative: Gallop/S4, Friction rub Abdomen: positive: Non-tender, No organomegaly, Nml bowel sounds, No distention Skin: positive: Other (Diffusely blistering, also with areas of excoriations that are healing in various stages. It does not involve her mouth, palms or soles of hands.) Extremities: positive: No pedal edema Neurologic/Psychiatric: positive: CN's nml (2-12), Motor nml, Disoriented to person, Disoriented to place, Disoriented to time, Weakness (Generalized, nonfocal) - Lab Results Fish Bones: 07/08/20 05:40 07/08/20 05:40 Other Labs: Lab Results x24hrs 07/07/20 Range/Units 22:09 SARS Serology POSITIVE A ABX Reporting Has patient been on IV antibiotics over the past 48 hours?: Yes Sepsis Event Note (H) - Evaluation Current Stage of Sepsis: Resolved Possible source of Sepsis: positive: Pulmonary, Skin/soft tissue - Sepsis Criteria Sepsis Criteria: Recorded Temperature greater than 38.3C or Less than 36C, Recorded Heart Rate greater than 90 bpm, WBC count greater than 12,000 or less than 4000 Assessment/Plan - Problem List (1) Pneumonia Impression: She met sepsis criteria on admission, given her elevated white count, fever, tachycardia. This may be due to the atypical pneumonia seen on chest xray and/or the cellulitis. Her fever may also be due to her blisters which may represent a more systemic allergic reaction. Fortunately, her blood pressure was stable and her lactic acid was normal. We started her empirically on ceftriaxone and doxycycline IV Day #3 today. We will gave her a liter of lactated Ringer's and continued her on IV maintenance fluids. Sepsis criteria resolved with in 12 hours. Her WBC 12>>9 but today no blood work since she is refusing blood draws. No fever Creat better BP stable. Mild hypoxia on room air to 92%. I spoke to the [id number] and son 07/08. Home number is supposed to be used after 5:00. His home number is [phone]. Cell phone is to be used during the day while he is at work. Number [phone]. And if I can get a hold of them that way I can call the labor crew supervisor at the cemetery and leave a voicemail and they will get them. That number is [phone]. CODE STATUS was discussed. Beginning of advance care planning conversation. In reviewing her POLST, she is a full code with limited interventions. He and [id number] both state that that is incorrect. She is to be a DNR with limited interventions. Today, he is planning on being here after noon. Covid 19 test sent and pending. She already had Covid in December. Plan: continue supportive care I will meet with the son today. He will be off work by noon. We can then do more advanced care planning conversation, and he can fill out a new POLST. (2) Blister of skin Conclusion/Plan: Differential remains quite broad for this. This could be bullous pemphigoid with superimposed cellulitis. This could also be DRESS but this felt less likely as her symptoms have been going on for 2 months without any obvious new medication except for the dapsone which was initiated after her symptoms had already begun. This could also be pemphigoid associated with mycoplasma pneumonia given her chest x-ray findings. Interestingly, her eosinophil count is quite elevated and was even higher back in May. Allopurinol is associated with a lupus type rash. CRP 15.3>>15.4 and she is refusing lab draw. Plan:Started her on doxycycline and ceftriaxone for any possible superimposed cellulitic infection. Started her on prednisone 40 mg daily. We will hold all nonessential home medications at this time including allopurinol and aspirin. We will not put her on telemetry due to the extent of the blisters and rash as this causes the patient a lot of pain. I spoke to family with regards to goals of care 07/08. While they do feel that she should be evaluated, and treated, they are starting to wonder if maybe she should stay at a intermediate facility with comfort measures only. The last time they saw her, in November 2019, she was very forgetful, but alert, cheerful, very happy to see her son. She was someone they could have a conversation with. She has not been that person since she had COVID. As stated in problem #1, advance care planning conversation today with son in person. Will also order theraworx bath daily to ease discomfort of skin. She keeps scratching and has large areas of oozing on her body. (3) Cellulitis of right upper extremity Conclusion/Plan: It appears she has superimposed cellulitis infection of her her skin blisters and wounds. Prior cultures have grown MSSA. Ceftriaxone and Doxy Day #3. Blood cultures are negative. Repeat wound cultures were obtained in the emergency department and we will follow these up. (4) CKD (chronic kidney disease), stage IV Conclusion/Plan: She has CKD stage IV which may be due to her diabetes or hypertension. Her baseline creatinine is around 2.5-2.7. Her creatinine on admit 2.8>>2.5 but today refusing blood draw. Plan: On IV hydration. Avoid nephrotoxins. Monitor renal function and urine output while hospitalized. Will try again to get blood when more calm. (5) Type 2 diabetes mellitus Conclusion/Plan: She is not on any medications. Her last A1c was 5.7%. We will place her on a pured diet. July 08, 2020: 178, 178, 140 July 09: 98 Plan: continue sliding scale and blood glucose checks with meals. (6) Paroxysmal atrial fibrillation Conclusion/Plan: She was in a sinus rhythm while on telemetry in the emergency department. She is not on anticoagulation. We will resume her home metoprolol. We will not place her on telemetry given the blisters and rash over her trunk and upper extremities. (7) Dementia Conclusion/Plan: She has advanced dementia and she is currently reportedly at her baseline. Delirium precautions.She has not been happy to be here. Screams when anything such as putting a spoon to her mouth is done. Definitely resists wound care. Has pulled out her IVs. Replaced.
[2020-07-09] MEDS: HEPARIN 5,000 UNIT/ML VIAL SUBQ SCH ×2 (09:28→21:12)
[2020-07-09] MEDS: LACTATED RINGERS 1,000 ML IV SCH ×3 (09:28→23:42)
[2020-07-09] MEDS: predniSONE 20 MG TABLET PO SCH ×2 (09:28→13:30)
[2020-07-09] MEDS: INSULIN ASPART 300 UNIT/3 ML PEN SUBQ SCH ×4 (09:28→21:13)
[2020-07-09] MEDS: cefTRIAXone 2 GM in SODIUM CHLORIDE 0.9% MINIBAG 100 ML IV SCH (12:15)
[2020-07-09] MEDS: DOXYCYCLINE INJ 100 MG in SODIUM CHLORIDE 0.9% MINIBAG 100 ML IV SCH ×2 (12:15→21:01)
[2020-07-09] MEDS: hydrOXYzine PAMOATE 25 MG CAPSULE PO PRN (13:30)
[2020-07-09] MEDS: MORPHINE SOL 10 MG/0.5 ML ORAL SYRINGE PO PRN ×2 (13:30→17:56)
[2020-07-09] MEDS ORDERED: predniSONE 20 MG TABLET PO SCH (13:45)
[2020-07-09] MEDS ORDERED: HALOPERIDOL 5 MG/ML VIAL IM ONE (16:14)
[2020-07-09] MEDS ORDERED: OLANZapine 10 MG VIAL IM ONE (19:44)
[2020-07-09] MEDS ORDERED: LACTATED RINGERS 1,000 ML IV ONE (21:05)
[2020-07-09] MEDS ORDERED: cefTRIAXone 2 GM in SODIUM CHLORIDE 0.9% MINIBAG 100 ML IV STA (21:05)
[2020-07-09] MEDS: SODIUM CHLORIDE FLUSH 0.9% 10 ML SYRINGE IVP PRN (22:14)
[2020-07-10] MEDS: SODIUM CHLORIDE FLUSH 0.9% 10 ML SYRINGE IVP SCH ×3 (01:02→17:57)
[2020-07-10] MEDS: MORPHINE 2 MG/ML CARPUJECT IVP PRN ×2 (05:30→21:58)
[2020-07-10 06:16] LABS: BASOPHILS % (AUTO) 0.3 %; EOSINOPHILS % (AUTO) 0.2 %; HGB - HEMOGLOBIN 8.6 g/dL (12.0-16.0); LYMPHOCYTES # (AUTO) 0.7 10^3/uL (1.5-3.5); LYMPHOCYTES % (AUTO) 7.4 %; MEAN CORPUSCULAR HEMOGLOBIN 29.6 pg (27.0-31.0); MEAN CORPUSCULAR HGB CONC 31.2 g/dL (32.0-36.0); MEAN CORPUSCULAR VOLUME 94.8 fL (81.0-99.0); MONOCYTES # (AUTO) 0.1 10^3/uL (0.0-1.0); MONOCYTES % (AUTO) 1.4 %; NEUTROPHILS # (AUTO) 8.4 10^3/uL (1.5-6.6); NEUTROPHILS % (AUTO) 85.8 %; PLT - PLATELET COUNT 310 10^3/uL (130-450); RED BLOOD COUNT 2.91 10^6/uL (4.20-5.40); RED CELL DISTRIBUTION WIDTH 14.1 % (12.0-15.0); WHITE BLOOD COUNT 9.8 x10^3/uL (4.8-10.8)
[2020-07-10 06:36] LABS: CALCIUM 8.1 mg/dL (8.5-10.3); CREATININE 2.3 mg/dL (0.4-1.0); CRP - C-REACTIVE PROTEIN 10.1 mg/dL (0-1.0); PHOSPHORUS 3.7 mg/dL (2.5-4.6)
[2020-07-10] MEDS: predniSONE 20 MG TABLET PO SCH (08:28)
[2020-07-10] MEDS: HEPARIN 5,000 UNIT/ML VIAL SUBQ SCH ×2 (08:28→21:48)
[2020-07-10] MEDS: cefTRIAXone 2 GM in SODIUM CHLORIDE 0.9% MINIBAG 100 ML IV SCH (08:28)
[2020-07-10] MEDS: hydrOXYzine PAMOATE 25 MG CAPSULE PO PRN (08:29)
[2020-07-10] MEDS: INSULIN ASPART 300 UNIT/3 ML PEN SUBQ SCH ×4 (08:29→21:42)
[2020-07-10] MEDS: DOXYCYCLINE INJ 100 MG in SODIUM CHLORIDE 0.9% MINIBAG 100 ML IV SCH ×2 (09:08→21:43)
[2020-07-10] MEDS: LACTATED RINGERS 1,000 ML IV SCH ×2 (10:29→20:46)
--- NOTE | 2020-07-10 13:28 | ADVANCE CARE PLANNING NOTE ---
Advance Care Planning - Planning Encounter Date: 07/09/20 Time: 14:00 Purpose: Establish CODE STATUS and goals of care for her family Parties in Attendance: Son, Klever (power of pleating machine operator) and [id number], Patient, and hospitalist. Home phone number is [phone]. Call after 5 PM on weekdays. Phone for cemetery where he works is [phone]. Sometimes his cell phone does not work and that is why you have to call the cemetery. Cell phone is [phone]. Decisional Capacity of the Patient: Patient has severe dementia. While she can be verbally prompted by her son, and she will cooperate with him, she is disoriented to person, place, time, and is not of able to make decisions for herself. Her son and power of pleating machine operator makes all arrangements. She has been living at a shelter facility for 4 years. - Diagnosis for Encounter (1) Dementia with behavioral disturbance Qualifiers: Dementia type: Alzheimer's disease Summary: Her many decades ago. She ended up living with her Sister Tiara, and her son. As she got older, her dementia got progressively worse. Her son Klever has to work, and 4 years ago decided to place mom and his aunt Tiara, her sister, at [facility]. It has been a good placement for her. Life is stable. She and Tiara get very lonely without each other. He goes over almost every weekend to see her. Unfortunately she can have behavioral disturbances with her dementia. When she is scared, disoriented, sick, she will refuse care. Tama. He is always able to calm her down and get her to do things. - Encounter Subjective/Patient's Story: Lived in [facility] all of her life. Has close contacts within her family. Lives with her son Klever after her . Eventually her sister came to live with him. Her memory loss got severe enough that she had to go live at [facility] because Klever works full-time and could not take care of her during the day. She has several children. Not all of them live in the area. Klever is her designated power of pleating machine operator and contacts all of his siblings of their changes to be made. Over the last few months it is been difficult for the family. Klever has not seen her since December 15 because of the COVID quarantine. Since that time she is deteriorated with her dementia, behavior. She also developed a type of bullous pemphigoid rash that is been difficult to treat. She was initially sent to our emergency room, sent back to [facility] stating that she needed to see a features reporter for the diagnosis. She was then sent to [facility] to get a diagnosis. [facility] pretty much said the same thing. She needs to be sent to a features reporter for punch biopsy, etc. This history is according to Klever. Patient is unable to provide a lucid history. From [facility] she was sent back to [facility]. The presumptive diagnosis is pemphigoid. She is received steroids in the past. But she has not been seen by dermatology. The rashes continue to progress. It is peeling in some areas, healing and other areas. She had a change in status with lethargy, fever, and she was not doing well. The detention contacted her son again. They asked if it would be okay to send her to the emergency room and she was sent back again. In speaking to him, they have already decided that she is that DO NOT RESUSCITATE with limited intervention. From a philosophical perspective they have not transition to comfort measures only. They feel that "God should decide that" not us. I went over her deterioration for the last few weeks. Her misery. She has been crying out us. Very angry that she is here. Refusing therapy. Keeps on yelling out "you are killing me. Why do you keep on doing this to me? Please let me ". Even simple things such as putting a spoon on her lips for her to eat causes her to scream. She will refuses to take p.o. and will spit pills and morphine out of her mouth. She has had several IVs put in because she keeps on repeating them out. I have asked his permission to give her sedatives such as Ativan or Haldol. I discussed the side effects. Objective/Medical Story: This is a 89-year-old female with a past medical history significant for paroxysmal atrial fibrillation not on anticoagulation, chronic kidney disease stage IV, advanced dementia, hypertension, type 2 diabetes mellitus, gout who presents today from [facility] after he was noted to have a fever of 102 F. History is obtained from the ER provider as well as the EMR as the patient has advanced dementia and is unable to provide a history. The patient has been seen multiple times in the ER over the past 6 weeks for blisters and a rash over her trunk and upper extremities. This has reportedly been going on for the past 2 months. She was seen in our emergency department on June 02 and at that time, there was low concern for infection and she was prescribed Decadron and Zyrtec. She was seen in the emergency department a week later as she had not improved. She had already been started on Keflex as wound cultures from the prior ER visit grew MSSA. During this ER visit, she was started on Decadron and the Keflex was discontinued and she was started on doxycycline. It was recommended at that time that she follow-up with a features reporter on an outpatient basis. Patient was reportedly seen later on at [facility] and diagnosed with bullous pemphigoid. She was once again trialed on steroids and a course of dapsone. Today she returns to our emergency department due to the fever that was not relieved by Tylenol. The patient reportedly has had COVID-19 back in December. The emergency department provider spoke with the patient's POA who confirms the patient is a DNR with limited interventions. In the emergency department, she was found to be febrile with temperature of 38.2 C. Her heart rate is 102. Her blood pressure was 140/51. Her respiratory was 22 and she was saturating 97% on room air. Labs were significant for a white count of 12.1. Her differential was significant for an eosinophil count of 2.3. This was previously elevated at 4.8 back on June 09. Urinalysis was unremarkable. Creatinine was 2.8 and her baseline is around 2.5. CRP was elevated at 15.3. Chest x-ray was obtained which was concerning for pulmonary vascular congestion versus atypical pneumonia. She received ceftriaxone and doxycycline in the emergency department. Given the above findings, medicine was consulted for admission.She is felt to have cellulitis of her arm, possible diffuse cellulitis of her body because of the bullous pemphigoid. She is also receiving treatment for atypical pneumonia. - Past Medical History Cardiovascular: reports: Congestive heart failure, Hypertension, Atrial fibrillation, Arrhythmia Neuro: reports: Dementia Endocrine/Autoimmune: reports: Type 2 diabetes : reports: Renal insuffiency Musculoskeletal: reports: Gout MRSA Hx?: No Goals of Care: 1. Son states that he would still like all treatment given to his mother short of dialysis. Also no CPR with intubation. He would still like blood transfusions, antibiotics, no tube feeds. If she needs to have surgery for broken hip, appendicitis, what ever he is amenable to that. 2. To return to [facility] to be with her Sister Tiara as soon as possible 3. He would like to make arrangements with Yuri to see his mom more regularly. He thinks it would help. He would like to go over for an hour on Sunday and an hour on Sunday just to feed her. Plan: New POLST form filled out today. I will contact the corporate administrator that would possibly let her son see her more often. Code Status: Do Not Attempt Resuscitation Time spent on advance care plannin minutes
[2020-07-10] MEDS ORDERED: OLANZapine 10 MG VIAL IM ONE ×2 (13:47→14:45)
[2020-07-10] MEDS ORDERED: LORazepam 2 MG/ML VIAL IVP STA (13:47)
--- NOTE | 2020-07-10 16:47 | ANESTHESIA PROCEDURE NOTE ---
Anesth Central Line Template - Central Line Central Line Preparation: Consent Obtained (by Dr Lassiter), Time out completed, Ultrasound used, Sterile prep and drape Central line location: Right Basilic Central line type: PICC Single Lumen Central line catheter tip site resides: Superior vena cava (SVC) Central line aftercare: Secured (statlock), Placement confirmed (by CXR), No complications, Bundle checklist complete, Pt tolerated well
--- NOTE | 2020-07-10 16:48 | PROVIDER PROGRESS NOTE ---
Subjective - Prog Note Date Prog Note Date: 07/10/20 Prog Note Time: 16:53 - Subjective Subjective: She had sedation with Haldol and Zyprexa yesterday to get an IV in. We were finally able to resume antibiotics and IV fluids. This morning she took the p ills when we explained to her that her son Klever really wanted her to take these medicines. However, she is getting increasingly difficult to find IV access in.Blood cultures today are positive for MSSA. Current Medications - Current Medications Current Medications: Active Medications Acetaminophen (Tylenol) 650 mg PO Q4HR PRN PRN Reason: Pain 1 to 4 Heparin Sodium (Porcine) () 5,000 unit SUBQ BID [facility] Last Admin: 07/10/20 08:28 Dose: 5,000 unit Documented by: Hydroxyzine Pamoate (Vistaril) 25 mg PO Q6HR PRN PRN Reason: ITCHING Last Admin: 07/10/20 08:29 Dose: 25 mg Documented by: Doxycycline Hyclate 100 mg/ (Sodium Chloride) 100 mls @ 100 mls/hr IV BID [facility] Last Infusion: 07/10/20 10:27 Dose: Infused Documented by: Lactated Ringer's (Lr) 1,000 mls @ 100 mls/hr IV .Q10H [facility] Last Admin: 07/10/20 10:29 Dose: 100 mls/hr Documented by: Ceftriaxone Sodium 2 gm/ (Sodium Chloride) 100 mls @ 200 mls/hr IV DAILY [facility] Last Infusion: 07/10/20 09:08 Dose: Infused Documented by: Insulin Aspart (Novolog) 1 - 5 unit SUBQ 0800,1200,1700,2100 [facility]; Protocol Last Admin: 07/10/20 12:05 Dose: 1 unit Documented by: Morphine Sulfate (Morphine (Carpuject)) 2 mg IVP Q2HR PRN PRN Reason: Pain 8 to 10 Last Admin: 07/10/20 05:30 Dose: 2 mg Documented by: Morphine Sulfate (Roxanol) 5 mg PO Q4HR PRN PRN Reason: PAIN Last Admin: 07/09/20 17:56 Dose: 5 mg Documented by: Ondansetron HCl (Zofran Inj) 4 mg IVP Q6HR PRN PRN Reason: Nausea / Vomiting Prednisone (Deltasone) 40 mg PO DAILYWM [facility] Last Admin: 07/10/20 08:28 Dose: 40 mg Documented by: Sodium Chloride (Normal Saline Flush 0.9%) 10 ml IVP PRN PRN PRN Reason: NEEDED PER PROVIDER ORDERS Last Admin: 07/09/20 22:14 Dose: 10 ml Documented by: Sodium Chloride (Normal Saline Flush 0.9%) 10 ml IVP 0100,0900,1700 [facility] Last Admin: 07/10/20 08:35 Dose: 10 ml Documented by: Aspirin [Aspir 81] 81 mg PO DAILY 06/25/13 Metoprolol Tartrate 25 mg PO BID 05/29/17 polyethylene glycoL 3350 [Miralax] 17 g PO DAILY 05/29/17 Acetaminophen [Tylenol] 650 mg PO Q8H PRN 07/08/20 Amlodipine Besylate [Norvasc] 2.5 mg PO DAILY PRN 07/08/20 Atorvastatin Calcium 20 mg PO QPM 07/08/20 Bisacodyl Supp [Dulcolax Supp] 10 mg RC Q24H PRN 07/08/20 Chlorhexidine Gluconate [Hibiclens] 15 ml TOP DAILY 07/08/20 Cholecalciferol [Vitamin D3] 50 mcg PO DAILY 07/08/20 Diphenhydramine HCl/Zinc Acet [Ra Anti-Itch 2%-0.1% Cream] 1 applic TOP QPM 07/08/20 Famotidine [Acid Controller] 20 mg PO BID 07/08/20 Furosemide [Lasix] 40 mg PO Q48H 07/08/20 Lidocaine HCl [Aspercreme] 1 applic TOP PRN PRN 07/08/20 Potassium Chloride 20 meq PO Q48H 07/08/20 amLODIPine [Norvasc] 5 mg PO DAILY 07/08/20 hydrOXYzine HCL [Hydroxyzine HCl] 25 mg PO Q8H PRN 07/08/20 traMADol [Ultram] 50 mg PO Q4H PRN 07/08/20 Objective - Vital Signs/Intake & Output Reviewed Vital Signs: Yes Vital Signs: Vital Signs x48h Temp Pulse Resp BP BP Pulse Ox 07/10/20 12:46 36.9 C 71 20 122/57 L 85 L 07/10/20 09:00 36.8 C 99 17 95/40 L 92 Intake & Output: Intake & Output 07/07/20 07/08/20 07/09/20 07/10/20 23:59 23:59 23:59 23:59 Intake Total 3181.967 3016.667 1200 Output Total 100 350 60 Balance 3081.967 2666.667 1140 - Objective General Appearance: positive: No acute distress, Other (This morning she was asleep but easily awoken and was frowning at me. Reluctantly agreed to an exam. Then we sedated her and she was profoundly asleep during the PICC line placement.) Eyes Bilateral: positive: PERRL, EOMI ENT: positive: No signs of dehydration Respiratory: positive: Chest non-tender, Rhonchi. negative: Wheezes, Rales Cardiovascular: positive: Regular rate & rhythm, Systolic murmur. negative: Gallop/S4, Friction rub Abdomen: positive: Non-tender, No organomegaly, Nml bowel sounds, No distention Skin: positive: Other (dried abrsions, blisters drying, arms/legs/abd/africa k/chest) Extremities: positive: Non-tender, Full ROM Neurologic/Psychiatric: positive: CN's nml (2-12), Motor nml, Disoriented to person, Disoriented to place, Disoriented to time - Lab Results Fish Bones: 07/10/20 05:27 07/10/20 05:27 Other Labs: Lab Results x24hrs 07/10/20 07/10/20 Range/Units 05:27 05:27 WBC 9.8 (4.8-10.8) x10^3/uL RBC 2.91 L (4.20-5.40) 10^6/uL Hgb 8.6 L (12.0-16.0) g/dL Hct 27.6 L (37.0-47.0) % MCV 94.8 (81.0-99.0) fL MCH 29.6 (27.0-31.0) pg MCHC 31.2 L (32.0-36.0) g/dL RDW 14.1 (12.0-15.0) % Plt Count 310 (130-450) 10^3/uL MPV 10.0 (7.9-10.8) fL Neut # (Auto) 8.4 H (1.5-6.6) 10^3/uL Lymph # (Auto) 0.7 L (1.5-3.5) 10^3/uL Collin # (Auto) 0.1 (0.0-1.0) 10^3/uL Eos # (Auto) 0.0 (0.0-0.7) 10^3/uL Baso # (Auto) 0.0 (0.0-0.1) 10^3/uL Absolute Nucleated RBC 0.03 x10^3/uL Nucleated RBC % 0.3 /100WBC Sodium 144 (135-145) mmol/L Potassium 4.4 (3.5-5.0) mmol/L Chloride 110 (101-111) mmol/L Carbon Dioxide 23 (21-32) mmol/L Anion Gap 11.0 (6-13) BUN 46 H (6-20) mg/dL Creatinine 2.3 H (0.4-1.0) mg/dL Estimated GFR (MDRD) 20 L (>89) Glucose 178 H (70-100) mg/dL Calcium 8.1 L (8.5-10.3) mg/dL Phosphorus 3.7 (2.5-4.6) mg/dL Magnesium 2.0 (1.7-2.8) mg/dL C-Reactive Protein 10.1 H (0-1.0) mg/dL ABX Reporting Has patient been on IV antibiotics over the past 48 hours?: Yes Sepsis Event Note (H) - Evaluation Current Stage of Sepsis: Resolved Possible source of Sepsis: positive: Pulmonary, Skin/soft tissue - Sepsis Criteria Sepsis Criteria: Recorded Temperature greater than 38.3C or Less than 36C, Recorded Heart Rate greater than 90 bpm, WBC count greater than 12,000 or less than 4000 Assessment/Plan - Problem List (2) Atypical pneumonia Impression: 07/09: She met sepsis criteria on admission, given her elevated white count, fever, tachycardia. This may be due to the atypical pneumonia seen on chest xray and/or the cellulitis. Her fever may also be due to her blisters which may represent a more systemic allergic reaction. Fortunately, her blood pressure was stable and her lactic acid was normal. We started her empirically on ceftriaxone and doxycycline IV Day #3 today. We will gave her a liter of lactated Ringer's and continued her on IV maintenance fluids. Sepsis criteria resolved with in 12 hours. Her WBC 12>>9 but today no blood work since she is refusing blood draws. No fever Creat better BP stable. Mild hypoxia on room air to 92%. I spoke to the [id number] and son 07/08. Home number is supposed to be used after 5:00. His home number is [phone]. Cell phone is to be used during the day while he is at work. Number [phone]. And if I can get a hold of them that way I can call the road gang supervisor at [place] and leave a voicemail and they will get them. That number is [phone]. CODE STATUS was discussed. Beginning of advance care planning conversation. In reviewing her POLST, she is a full code with limited interventions. He and [id number] both state that that is incorrect. She is to be a DNR with limited interventions. Today, he is planning on being here after noon. Covid 19 test sent and pending. She already had Covid in December. Plan: continue supportive care I will meet with the son today. He will be off work by noon. We can then do more advanced care planning conversation, and he can fill out a new POLST. 07/10: I met with son yesterday. Did long advance care planning talked for close to 50 minutes with he and his . He wishes to continue for atypical pneumonia treatment. While she is a DO NOT RESUSCITATE with limited intervention, he still wants antibiotics, blood transfusions, surgeries, etc. done. Today there will be no change in antibiotics. She has been pulling out her IV again. As such she had a delay in antibiotics given yesterday. Blood cultures now showing staph aureus. MSSA. Plan: PICC line for 10 days of bacteremia therapy Continue Rocephin (2) Blister of skin Conclusion/Plan: 07/09: Differential remains quite broad for this. This could be bullous pe mphigoid with superimposed cellulitis. This could also be DRESS but this felt less likely as her symptoms have been going on for 2 months without any obvious new medication except for the dapsone which was initiated after her symptoms had already begun. This could also be pemphigoid associated with mycoplasma pneumonia given her chest x-ray findings. Interestingly, her eosinophil count is quite elevated and was even higher back in May. Allopurinol is associated with a lupus type rash. CRP 15.3>>15.4 and she is refusing lab draw. Plan:Started her on doxycycline and ceftriaxone for any possible superimposed cellulitic infection. Started her on prednisone 40 mg daily. We will hold all nonessential home medications at this time including allopurinol and aspirin. We will not put her on telemetry due to the extent of the blisters and rash as this causes the patient a lot of pain. I spoke to family with regards to goals of care 07/08. While they do feel that she should be evaluated, and treated, they are starting to wonder if maybe she should stay at a retirement facility with comfort measures only. The last time they saw her, in November 2019, she was very forgetful, but alert, cheerful, very happy to see her son. She was someone they could have a conversation with. She has not been that person since she had COVID. As stated in problem #1, advance care planning conversation today with son in person. Will also order theraworx bath daily to ease discomfort of skin. She keeps scratching and has large areas of oozing on her body. 07/10: No change in the blistering of her skin. Calmer today. Letting nurses do the bath. CRP is 10.1 today. (3) Cellulitis of right upper extremity Conclusion/Plan: It appears she has superimposed cellulitis infection of her her skin blisters and wounds. Prior cultures have grown MSSA. Ceftriaxone and Doxy Day #4. Blood cultures Are now positive for staph aureus. Repeat wound cultures were obtained in the emergency department and they are not showing up in EMR/lab area. (4) CKD (chronic kidney disease), stage IV Conclusion/Plan: She has CKD stage IV which may be due to her diabetes or hypertension. Her baseline creatinine is around 2.5-2.7. Her creatinine on admit 2.8>>2.5>>2.3 today. Plan: Continue IV hydration. Avoid nephrotoxins. Monitor renal function and urine output while hospitalized. Will try again to get blood when more calm. (5) Type 2 diabetes mellitus Conclusion/Plan: She is not on any medications. Her last A1c was 5.7%. We will place her on a pured diet. July 08, 2020: 178, 178, 140 July 09: 98, 201, 268, 227 July 10 160, 150, 165 Plan: continue sliding scale and blood glucose checks with meals. (6) Paroxysmal atrial fibrillation Conclusion/Plan: She was in a sinus rhythm while on telemetry in the emergency department. She is not on anticoagulation. We will resume her home metoprolol. We will not place her on telemetry given the blisters and rash over her trunk and upper extremities. (7) Dementia Conclusion/Plan: She has advanced dementia and she is currently reportedly at her baseline. Delirium precautions.She has not been happy to be here. Screams when anything such as putting a spoon to her mouth is done. Definitely resists wound care. H as pulled out her IVs. Replaced. I did speak to her son yesterday. He feels that it is gone well in that she still alive. Although she is a DO NOT RESUSCITATE and we filled out a POLST form, he would still like us to continue with antibiotics, treatment as it is.He is asking if I could please contact Juan at [facility]. He would like to visit his mom's on Sunday and Sunday. At this point [facility] has a policy that unless the patient is on hospice family cannot visit. I will reach out to Juan at [phone] to see if that is possible.
--- NOTE | 2020-07-10 16:56 | XRAY Report ---
PROCEDURE: Chest for Line Placement INDICATIONS: PICC line confirmation TECHNIQUE: One view of the chest was acquired. COMPARISON: 07/07/2020, 05/29/2017 FINDINGS: Surgical changes and devices: A right-sided PICC line is seen, with the tip overlying the right atriu m, approximately 2 cm below the cavoatrial junction. Lungs and pleura: The left lung is incompletely imaged. Interstitial prominence is seen throughout. N o pneumothorax is seen. Likely small bilateral pleural effusions. Mediastinum: Mediastinal contours appear normal. Heart size is normal. Bones and chest wall: No suspicious bony lesions. Overlying soft tissues appear unremarkable. IMPRESSION: The tip of the right-sided PICC line overlies the right atrium. Please consider withdrawal of 3 cm, i f clinically appropriate. Interstitial prominence is seen, which is nonspecific. Pulmonary edema is suspected. Small bilateral pleural effusions are believed to be present. Reviewed by: Nikolas Mathur MD on 07/10/2020 3:54 PM AKDT Approved by: Nikolas Mathur MD on 07/10/2020 3:54 PM AKDT Station ID: [id number]
[2020-07-10] MEDS: SODIUM CHLORIDE FLUSH 0.9% 10 ML SYRINGE IVP PRN ×3 (17:57→22:40)
[2020-07-11] MEDS: SODIUM CHLORIDE FLUSH 0.9% 10 ML SYRINGE IVP SCH ×3 (01:35→17:28)
[2020-07-11] MEDS: LACTATED RINGERS 1,000 ML IV SCH ×2 (06:11→17:38)
[2020-07-11 06:26] LABS: BASOPHILS % (AUTO) 0.2 %; EOSINOPHILS # (AUTO) 0.1 10^3/uL (0.0-0.7); EOSINOPHILS % (AUTO) 0.4 %; HGB - HEMOGLOBIN 8.3 g/dL (12.0-16.0); LYMPHOCYTES # (AUTO) 1.4 10^3/uL (1.5-3.5); LYMPHOCYTES % (AUTO) 12.2 %; MEAN CORPUSCULAR HEMOGLOBIN 29.4 pg (27.0-31.0); MEAN CORPUSCULAR HGB CONC 30.4 g/dL (32.0-36.0); MEAN CORPUSCULAR VOLUME 96.8 fL (81.0-99.0); MEAN PLATELET VOLUME 9.3 fL (7.9-10.8); MONOCYTES # (AUTO) 0.7 10^3/uL (0.0-1.0); MONOCYTES % (AUTO) 6.3 %; NEUTROPHILS # (AUTO) 8.9 10^3/uL (1.5-6.6); PLT - PLATELET COUNT 333 10^3/uL (130-450); RED BLOOD COUNT 2.82 10^6/uL (4.20-5.40); RED CELL DISTRIBUTION WIDTH 14.2 % (12.0-15.0); WHITE BLOOD COUNT 11.6 x10^3/uL (4.8-10.8)
[2020-07-11 06:41] LABS: CALCIUM 8.1 mg/dL (8.5-10.3); CREATININE 1.9 mg/dL (0.4-1.0); CRP - C-REACTIVE PROTEIN 4.7 mg/dL (0-1.0); MAGNESIUM 1.9 mg/dL (1.7-2.8); PHOSPHORUS 3.9 mg/dL (2.5-4.6)
[2020-07-11] MEDS: DOXYCYCLINE INJ 100 MG in SODIUM CHLORIDE 0.9% MINIBAG 100 ML IV SCH ×2 (08:22→21:34)
[2020-07-11] MEDS: cefTRIAXone 2 GM in SODIUM CHLORIDE 0.9% MINIBAG 100 ML IV SCH (08:22)
[2020-07-11] MEDS: hydrOXYzine PAMOATE 25 MG CAPSULE PO PRN ×2 (08:25→21:40)
[2020-07-11] MEDS: predniSONE 20 MG TABLET PO SCH (08:25)
[2020-07-11] MEDS: HEPARIN 5,000 UNIT/ML VIAL SUBQ SCH ×2 (08:25→21:40)
[2020-07-11] MEDS: polyethylene glycoL 3350 17 GM PACKET PO SCH (08:26)
[2020-07-11] MEDS: INSULIN ASPART 300 UNIT/3 ML PEN SUBQ SCH ×4 (08:40→21:50)
--- NOTE | 2020-07-11 17:38 | PROVIDER PROGRESS NOTE ---
Progress Note July 11, 2020 5:35 PM. She has been quiet most of the day. The yelling and screaming that has been going on for last few days is subsided substantially. Nursing is figured out that if they can use her son name, Klever, she will lightened up considerably and cooperate. No Haldol since yesterday's PICC line placed. We used it for sedation. She has had no fever spikes. Blood pressure is remained stable in the 160s to 170s systolic. She is 91% on room air. She ate a few bites of breakfast, 25% of her lunch, and 100% of her dinner. She is a total assist with regards to eating. Poor dentition. Medication list reviewed. She continues to be on ceftriaxone, doxycycline, Deltasone p.o. We are using morphine as needed and Roxanol was last used on July 09. Morphine IV used July 10 at 10:00 at night. On examination temperature is 36.8. Pulse is 97. Blood pressure 172/78. Respirations 18. 91% on room air. She is laying quietly. Picking at her bed sheets. Looks at me when I walk in. Neck is supple. Lungs have diminished breath sounds at the bases that are unlabored. She withdraws with my exam and increases her respiratory rate but lungs are clear. She has a regular rate and rhythm. The abdomen is benign. PICC line is in arm and skin is not red and clean around it. Extremities have trace edema. Her blistering rash seems to have dried up more between yesterday and today. I am not seeing new blisters. Assessment/plan: 1. Pneumonia. She met sepsis criteria on admission and had an atypical pneumonia on chest x-ray. Her oxygen saturation was actually normal on admission. As the admission is progressed she is needed 1 to 2 L of oxygen. Stable at this point in time at 91% on room air. She was 100% when she came in. White cell count went down to normal after antibiotics and came back up to 11.6 today. Plan: Continue ceftriaxone, day #4. She is also on doxycycline day #4. 2. Cellulitis of right upper extremity. Is improved. There is no redness or heat. The changes she has right now are associated more with just skin breakdown of her bullous pemphigoid lesion. 3. Type 2 diabetes mellitus. She is on oral steroids. Glucose is initially controlled in the morning and early afternoon and by the evening she is in the 250 range. She has a NovoLog sliding scale. Plan: Add Lantus 5 units in the morning. 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 By my eye the rash seems to be drying up and that the blistering lesions are dry. No new blistering lesions. She still scratches and is itching but that seems to be better today as well. 5. Acute kidney injury is improving. Admission creatinine was 2.8. She is 2.9 today. I will continue IV fluids until she can eat on a regular basis. She seems to be improving on that today as well. 6. MSSA bacteremia. Will need 10 days of IV antibiotic therapy total. We have a PICC line in place. We have asked [facility] to review her records for discharge tomorrow. She will need 4-5 more days of Rocephin there.
[2020-07-12] MEDS: SODIUM CHLORIDE FLUSH 0.9% 10 ML SYRINGE IVP SCH ×2 (00:36→03:01)
[2020-07-12] MEDS ORDERED: hydrALAZINE INJ 20 MG/ML VIAL IVP PRN (00:38)
[2020-07-12] MEDS ORDERED: IPRATROPIUM/ALBUTEROL 3 ML NEB INH PRN (02:33)
[2020-07-12] MEDS ORDERED: FUROSEMIDE 20 MG/2 ML VIAL IVP STA (02:33)
[2020-07-12 05:43] LABS: BASOPHILS % (AUTO) 0.4 %; EOSINOPHILS % (AUTO) 1.2 %; HGB - HEMOGLOBIN 10.4 g/dL (12.0-16.0); LYMPHOCYTES % (AUTO) 12.4 %; MEAN CORPUSCULAR HEMOGLOBIN 29.8 pg (27.0-31.0); MEAN CORPUSCULAR HGB CONC 31.8 g/dL (32.0-36.0); MEAN CORPUSCULAR VOLUME 93.7 fL (81.0-99.0); MEAN PLATELET VOLUME 9.3 fL (7.9-10.8); MONOCYTES % (AUTO) 5.6 %; NEUTROPHILS % (AUTO) 74.3 %; PLT - PLATELET COUNT 435 10^3/uL (130-450); RED BLOOD COUNT 3.49 10^6/uL (4.20-5.40); RED CELL DISTRIBUTION WIDTH 14.6 % (12.0-15.0); WHITE BLOOD COUNT 18.4 x10^3/uL (4.8-10.8)
[2020-07-12 05:44] LABS: ABNORMAL LYMPHS % (MANUAL) 0 %; BAND NEUTROPHILS % (MANUAL) 0 %
[2020-07-12 06:01] LABS: LYMPHOCYTES # (MANUAL) 2.9 10^3/uL (1.5-3.5); LYMPHOCYTES % (MANUAL) 16 %; METAMYELOCYTES % (MANUAL) 1 %; MONOCYTES # (MANUAL) 0.7 10^3/uL (0.0-1.0); MYELOCYTES % (MANUAL) 1 %
[2020-07-12 06:02] LABS: DIFFERENTIAL COMMENT MANUAL DIFFERENTIAL; PLATELET ESTIMATE, MANUAL NORMAL (130-450,000) (NORMAL); PLATELET MORPHOLOGY NORMAL APPEARANCE (NORMAL); RBC MORPHOLOGY (MULTIPLE) NORMAL APPEARANCE (NORMAL)
[2020-07-12 06:04] LABS: CALCIUM 8.7 mg/dL (8.5-10.3); CREATININE 1.9 mg/dL (0.4-1.0); CRP - C-REACTIVE PROTEIN 3.3 mg/dL (0-1.0); PHOSPHORUS 3.2 mg/dL (2.5-4.6)
[2020-07-12] MEDS: hydrOXYzine PAMOATE 25 MG CAPSULE PO PRN (06:13)
[2020-07-12] MEDS: predniSONE 20 MG TABLET PO SCH (07:54)
[2020-07-12] MEDS: SODIUM CHLORIDE FLUSH 0.9% 10 ML SYRINGE IVP PRN (07:58)
[2020-07-12] MEDS: cefTRIAXone 2 GM in SODIUM CHLORIDE 0.9% MINIBAG 100 ML IV SCH (07:58)
[2020-07-12] MEDS: DOXYCYCLINE INJ 100 MG in SODIUM CHLORIDE 0.9% MINIBAG 100 ML IV SCH (08:00)
[2020-07-12] MEDS: HEPARIN 5,000 UNIT/ML VIAL SUBQ SCH (08:12)
[2020-07-12] MEDS: polyethylene glycoL 3350 17 GM PACKET PO SCH (08:14)
[2020-07-12] MEDS: INSULIN ASPART 300 UNIT/3 ML PEN SUBQ SCH ×2 (08:15→12:09)
--- NOTE | 2020-07-12 08:52 | XRAY Report ---
PROCEDURE: Chest 1 View X-Ray INDICATIONS: increased work of breathing, wheezing TECHNIQUE: One view of the chest was acquired. COMPARISON: 07/10/2020 and 07/07/2020. FINDINGS: Surgical changes and devices: PICC line projects to the right atrium via a right-sided approach. Lungs and pleura: Interstitial prominence in the lungs bilaterally. Small bilateral pleural fluid col lections. Mediastinum: Mediastinal contours appear normal. Heart size is normal. Bones and chest wall: No suspicious bony lesions. Overlying soft tissues appear unremarkable. IMPRESSION: Persistent bilateral lung interstitial prominence which could represent pulmonary edema or atypical/v iral pneumonia. Reviewed by: Gabbi Plaza MD, PhD on 07/12/2020 8:51 AM PDT Approved by: Gabbi Plaza MD, PhD on 07/12/2020 8:51 AM PDT Station ID: [id number]
[2020-07-12] MEDS ORDERED: PHENOL THROAT SPRAY 177 ML MM PRN (10:35)
[2020-07-12] MEDS ORDERED: MULTIVITAMIN W/MINERALS TABLET PO SCH (12:00)
[2020-07-12 12:15] VITALS: BP 171/84
--- NOTE | 2020-07-12 12:24 | DISCHARGE SUMMARY ---
Discharge Summary Admit Date: 07/07/20 Discharge Date: 07/12/20 Discharging Provider: Fatuma Lassiter MD Primary Care Provider: Olayinka Alvarez MD Code Status: Do Not Attempt Resuscitation Condition at Discharge: Fair Discharge Disposition: 01 Home, Self Care - DIAGNOSES Discharge Diagnoses with Status of Each Condition: 1. Atypical pneumonia 2. Right arm cellulitis 3. 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 Dementia with behavioral disorder 5. Methicillin sensitive staph aureus bacteremia 6. Acute kidney injury superimposed on chronic kidney disease 7. Type 2 diabetes mellitus, controlled - HPI History of Present Illness: This is a 89-year-old female with a past medical history significant for paroxysmal atrial fibrillation not on anticoagulation, chronic kidney disease stage IV, advanced dementia, hypertension, type 2 diabetes mellitus, gout who presents today from [facility] after he was noted to have a fever of 102 F. History is obtained from the ER provider as well as the EMR as the patient has advanced dementia and is unable to provide a history. The patient has been seen multiple times in the ER over the past 6 weeks for blisters and a rash over her trunk and upper extremities. This has reportedly been going on for the past 2 months. She was seen in our emergency department on June 02 and at that time, there was low concern for infection and she was prescribed Decadron and Zyrtec. She was seen in the emergency department a week later as she had not improved. She had already been started on Keflex as wound cultures from the prior ER visit grew MSSA. During this ER visit, she was started on Decadron and the Keflex was discontinued and she was started on doxycycline. It was recommended at that time that she follow-up with a bagging machine operator on an outpatient basis. Patient was reportedly seen later on at [facility] and diagnosed with bullous pemphigoid. She was once again trialed on steroids and a course of dapsone. Today she returns to our emergency department due to the fever that was not relieved by Tylenol. The patient reportedly has had COVID-19 back in December. The emergency department provider spoke with the patient's POA who confirms the patient is a DNR with limited interventions. In the emergency department, she was found to be febrile with temperature of 38.2 C. Her heart rate is 102. Her blood pressure was 140/51. Her respiratory was 22 and she was saturating 97% on room air. Labs were significant for a white count of 12.1. Her differential was significant for an eosinophil count of 2.3. This was previously elevated at 4.8 back on June 09. Urinalysis was unremarkable. Creatinine was 2.8 and her baseline is around 2.5. CRP was elevated at 15.3. Chest x-ray was obtained which was concerning for pulmonary vascular congestion versus atypical pneumonia. She received ceftriaxone and doxycycline in the emergency department. Given the above findings, medicine was consulted for admission. I did attempt to speak with her son, Klever who is the POA, but I was unable to reach him. She will be made a DNR per at the documents received from [facility] and what the ER provider was told when he spoke with Klever. - Past Medical History Cardiovascular: reports: Congestive heart failure, Hypertension, Atrial fibrillation, Arrhythmia Neuro: reports: Dementia Endocrine/Autoimmune: reports: Type 2 diabetes : reports: Renal insuffiency Musculoskeletal: reports: Gout MRSA Hx?: No - CONSULTS | PROCEDURES Procedures: 1. 3 chest xrays all showing persistent bilateral lung interstitial prominence representing pumonary edema or atypical/viral pneumonia. 2. Blood culture 07/07 with Staphylococcus Aureus 3. Blood culture 07/08, 07/10 without growth after 2 days 4. PICC line placed 07/10 - HOSPITAL COURSE Hospital Course: She met sepsis criteria on admission and had an atypical pneumonia on chest x- ray. Her oxygen saturation was actually normal on admission. As the admission progressed she has needed 1 to 2 L of oxygen. Stable at discharge and is at 91% on room air. She was 100% when she came in. White cell count went down to normal after antibiotics and came back up to 11.6 on day of discharge. Chest xray did not change much with treatment and there may be some component of residual effects of her Covid -19 infection from December. She complete 5 days of doxycycline and is continued on the Rocephin for MSSA bacteremia. Cellulitis of right upper extremity improved. There is no redness or heat at discharge. The changes she has right now are associated more with just skin breakdown of her bullous pemphigoid lesion. Type 2 diabetes mellitus. She is on oral steroids. Glucose is initially controlled in the morning and early afternoon and by the evening she is in the 250 range. She has a NovoLog sliding scale. Until steroids are stopped for her bullous pemphigoid, I am continuing lantus 5 units and low dose sliding scale novolog. Bullous pemphigoid rash. Continue oral steroids. By my eye the rash seems to be drying up and that the blistering lesions are dry. No new blistering lesions. She still scratches and is itching but that seems to be better today as well. Acute kidney injury is improving. She had a creatinine of 2.8 on admission and she was 1.9 at discharge. MSSA bacteremia. Will need 10 days of IV antibiotic therapy total. We have a PICC line in place. She will need 5 more days of Rocephin. Dementia with behavioral issues were treated with haldol, zyprexa or ketamine when she needed an IV in the ER, and IV on Medical Surgery unit and when she needed the PICC line. She would scream, pull out the IVs. Putting a spoon to her mouth for feeding would result in biting the spoon or spitting out her medications or food. Once we were able to get her son to see her she responded to his requests and she was mostly cooperative for the rest of her stay. We would coax her saying "Klever would want you to have this". Her son is asking if he could visit her on the weekends to at least feed her. He will be co ntacting [facility] [place]. She was discharged in stable condiiton. Temp 36.5. Pulse 95. BP 171/84. Respirations 18 and oxygen saturaitons were 94% on room air. She is 5ft 4in, weighs 57.5 kg. Alert but suspicious elderly female with bullous lesions that are drying in various stages on her body. PICC line in place. She is forgetful of any short or [facility] memories. Will use her hands to pull at sheets, or IV. Incontinent and needs brief or pad. Deaf. No JVD. Coarse lung sounds. No increased respiratory effort. Abd benign. Nml bowel sounds. Last BM 07/12. Mild non pitting edema. Greater than 30 minutes was spent coordinating discharge. - ALLERGIES Allergies/Adverse Reactions: Allergies Allergy/AdvReac Type Severity Reaction Status Date / Time No Known Drug Allergies Allergy Verified 07/07/20 20:55 - MEDICATIONS Home Medications: Ambulatory Orders Medication Instructions Recorded Confirmed Aspirin [Aspir 81] 81 mg PO DAILY 06/25/13 07/08/20 Acetaminophen [Tylenol] 650 mg PO Q8H PRN 07/08/20 07/08/20 Amlodipine Besylate [Norvasc] 2.5 mg PO DAILY PRN 07/08/20 07/08/20 Bisacodyl Supp [Dulcolax Supp] 10 mg RC Q24H PRN 07/08/20 07/08/20 Atorvastatin Calcium 20 mg PO QPM #0 07/12/20 07/08/20 Cetirizine [ZyrTEC] 10 mg PO DAILY #30 tablet 07/12/20 07/08/20 Cholecalciferol [Vitamin D3] 50 mcg PO DAILY #0 07/12/20 07/08/20 Diphenhydramine HCl/Zinc Acet [Ra 1 applic TOP QPM #0 07/12/20 07/08/20 Anti-Itch 2%-0.1% Cream] Famotidine [Acid Controller] 20 mg PO BID #0 07/12/20 07/08/20 Furosemide [Lasix] 40 mg PO Q48H #0 07/12/20 07/08/20 Lidocaine HCl [Aspercreme 1 applic TOP PRN PRN #1 07/12/20 07/08/20 Lidocaine] Metoprolol Tartrate 25 mg PO BID #0 07/12/20 07/08/20 Potassium Chloride 20 meq PO Q48H #1 07/12/20 07/08/20 amLODIPine [Norvasc] 5 mg PO DAILY #1 07/12/20 07/08/20 cefTRIAXone [Rocephin 2 gram] 2 gm IV DAILY #5 vial 07/12/20 hydrOXYzine HCL [Hydroxyzine HCl] 25 mg PO Q8H PRN #1 07/12/20 07/08/20 polyethylene glycoL 3350 [Miralax] 17 g PO DAILY #0 07/12/20 07/08/20 predniSONE [Deltasone] 40 mg PO DAILYWM #14 tablet 07/12/20 traMADol [Ultram] 50 mg PO Q4H PRN #30 tab 07/12/20 - LABS Result Diagrams: 07/12/20 05:25 07/12/20 05:25 - SEPSIS Current Stage of Sepsis: Resolved Possible source of Sepsis: Pulmonary, Skin/soft tissue Sepsis Criteria: Recorded Temperature greater than 38.3C or Less than 36C, Recorded Heart Rate greater than 90 bpm, WBC count greater than 12,000 or less than 4000
--- NOTE | 2020-07-12 12:40 | Discharge Plan ---
Discharge Plan Problem Reviewed?: Yes Disposition: Home, Self Care Condition: Fair Prescriptions: cefTRIAXone [Rocephin 2 gram] 2 gm IV DAILY #5 vial traMADol [Ultram] 50 mg PO Q4H PRN #30 tab PRN Reason: Pain Diet: Regular (dysphagia puree diet) Activity Restrictions: Activity as Tolerated Shower Restrictions: Yes (completely dependent for adl) Driving Restrictions: Yes (no driving) Assistance Devices: Wheelchair, Walker Health Concerns: The patient is a densely demented elderly female who is [facility]. She is to return to her [facility] facility at this discharge. She has had a bullous rash for over 2 weeks. She was seen in our emergency room and instructed to return back to the [facility] facility to receive a dermatology consult with biopsy (punch) and a DFA analysis. Logistics were difficult and she was then transferred to [facility] for the same rash. [facility] treated empirically as a bullous pemphigoid and is our understanding that she did not get a punch biopsy. She now returns with a continued rash, fever, and chest x-ray was concerning for atypical pneumonia. Plan of Treatment: 1. She will complete steroid treatment for a bullous type rash. This is still an empiric treatment of an unknown type of rash that we are making educated guess on. Lasix does have a sulfa moiety. That moiety can in turn cause a blistering rash. 2. During the stay she developed MSSA bacteremia. She will need to complete 5 more days of IV Rocephin. She has a PICC line in place. C-reactive protein on admission was 15.3. At discharge she is 3.3. 3. Dementia with behavior was a considerable problem and that she would scream, resist skin care, refused to eat even when a spoon was placed on her lips. She required sedation 3 times. Once was for an IV in the ER. They gave her ketamine. Another time was for an IV on the floor and she required Haldol. The third time was when she required the central line placement and she received Haldol, Versed. Her son was able to come in and see her. She responds very, very nicely to him. Once we were able to use his name to explain to her that her son wanted us to do things, she was much more cooperative. 4. Son is asking permission from the [facility] facility to come on the weekends to feed her. 5. Acute kidney injury from dehydration is gradually resolving. BUN and creatinine on admission were 45 4/2.8. At discharge she is 48 and 1.9. 6. A new POLST form was filled out. She is a DO NOT RESUSCITATE with limited intervention. We did ask him to start considering transition to palliative care. He is to speak to his family and siblings about this before he wishes to make a decision. Care Goals: To return to her [facility] room where she lives with her sister. Assessment: This is a [facility] facility patient. Discharge instructions were not shared with the patient because of her cognitive deficit. They will be sent to the [facility] facility. No Smoking: If you smoke, Please STOP! Call for help. Follow-up with: Phnog Alvarez DO [Primary Care Provider] -
--- NOTE | 2020-07-12 12:49 | Discharge Plan ---
"Discharge Plan for SNF / [facility] - Discharge Plan And Transition Orders Problem Reviewed?: Yes Disposition: 01 Home, Self Care Condition: Fair Allergies and Adverse Reactions: Allergies Allergy/AdvReac Type Severity Reaction Status Date / Time No Known Drug Allergies Allergy Verified 07/07/20 20:55 Health Concerns: The patient is a densely demented elderly female who is been living at a alf facility for 4 years. She is to return to her alf facility which is considered her residence at this discharge. She has had a bullous rash for over 2 weeks. She was seen in our emergency room and instructed to return back to the alf facility to receive a dermatology consult with biopsy (punch) and a DFA analysis. Logistics were difficult and she was then transferred to [facility] for the same rash. [facility] treated empirically as a bullous pemphigoid and is our understanding that she did not get a punch biopsy. She now returns with a continued rash, fever, and chest x- ray was concerning for atypical pneumonia. Plan of Treatment: 1. She will complete steroid treatment for a bullous type rash. This is still an empiric treatment of an unknown type of rash that we are making educated guess on. Lasix does have a sulfa moiety. That moiety can in turn cause a blistering rash. 2. During the stay she developed MSSA bacteremia. She will need to complete 5 more days of IV Rocephin. She has a PICC line in place. C-reactive protein on admission was 15.3. At discharge she is 3.3. 3. Dementia with behavior was a considerable problem and that she would scream, resist skin care, refused to eat even when a spoon was placed on her lips. She required sedation 3 times. Once was for an IV in the ER. They gave her ketamine. Another time was for an IV on the floor and she required Haldol. The third time was when she required the central line placement and she received Haldol, Versed. Her son was able to come in and see her. She responds very, very nicely to him. Once we were able to use his name to explain to her that her son wanted us to do things, she was much more cooperative. 4. Son is asking permission from the alf facility to come on the weekends to feed her. 5. Acute kidney injury from dehydration is gradually resolving. BUN and creatinine on admission were 45 4/2.8. At discharge she is 48 and 1.9. 6. A new POLST form was filled out. She is a DO NOT RESUSCITATE with limited intervention. We did ask him to start considering transition to palliative care. He is to speak to his family and siblings about this before he wishes to make a decision. Care Goals: To return to her alf facility room where she lives with her sister. Assessment: This is a alf facility patient. Discharge instructions were not shared with the patient because of her cognitive deficit. They will be sent to the alf facility. - SNF / [facility] Transition Orders Admit to (Facility): [facility] Under the care of (Name): Olayinka Alvarez MD Discharge Diagnosis: 1. Atypical pneumonia 2. Right arm cellulitis 3. 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 Dementia with behavioral disorder 5. Methicillin sensitive staph aureus bacteremia 6. Acute kidney injury superimposed on chronic kidney disease 7. Type 2 diabetes mellitus, controlled Weight on admission and: Daily Other Notification Orders: Call PCP immediately if patient develops dyspnea, chest pain/tightness or edema. House Bowel Program: Yes Additional Bowel Program Orders: If no BM after 2 days, nurse may give M.O.M. 30ml PO PRN and/or ducolax Supp 1 DC and/or HOWARD 250mg P.O., and/or senna 1-2 tabs PO. On day 3 nurse may give repeat above order until residents constipation is resolved. Annual Influenza Vaccine (between Jun 22 and January 19): Yes Two-step PPD per [facility] [id number] or approved exception documents: Yes Lab Tests or X-ray Orders: CBC and BMP within the next 7 days Medication Orders: PLEASE REFER TO THE DISCHARGE MEDICATION LIST. Insulin Orders?: Yes - Medications New Prescriptions: cefTRIAXone [Rocephin 2 gram] 2 gm IV DAILY #5 vial traMADol [Ultram] 50 mg PO Q4H PRN #30 tab PRN Reason: Pain - Diet Type: No added sugar Texture: Puree Liquids: Honey thick May have monthly special meal: Yes - Therapies | Activity Rehabilitation Potential: Maintain present ADL Functional Activity: Activity as Tolerated Assistance Devices: Wheelchair, Walker Insulin Orders - SNF Basal | Correction | Custom Orders: Diagnosis: Diabetes Initiate hypo and hyperglycemia protocols for BG <70 and BG >375. May check BG PRN for signs/symptoms of dysglycemia. Frequency of BG checks: [AC/Meal/HS] Basal Insulin: [X] Lantus 100 units / ml inject subq as follows: [5 units sq qhs] [] Other: [] Correction Insulin: - Select the type of insulin below [Choose: Novolog]100 units /ml insulin inject subq per orders indicate below [X] LOW DOSE [] MODERATE DOSE [] MODERATE/HIGH DOSE [] HIGH DOSE GB UNITS GB UNITS GB UNITS GB UNITS 61-140 0 UNITS 61-140 0 UNITS 61-140 0 UNITS 61-140 0 UNITS 141-175 1 UNITS 141-175 1 UNITS 141-175 2 UNITS 141-175 3 UNITS 176-225 2 UNITS 176-225 3 UNITS 176-225 4 UNITS 176-225 5 UNITS 226-275 3 UNITS 226-275 5 UNITS 226-275 6 UNITS 226-275 7 UNITS 276-325 4 UNITS 276-325 7 UNITS 276-325 8 UNITS 276-325 9 UNITS 326-375 5 UNITS 326-375 9 UNITS 326-375 10 UNITS 326-375 11 UNITS >375 CONTACT MD >375 CONTACT MD >375 CONTACT MD >375 CONTACT MD Custom Dosing: [Choose: Novolog/Humalog] 100 units/ml Insulin inject subq as follows: GB Units 61-140 [] Units 141-175 [] Units 176-225 [] Units 226-275 [] Units 276-325 []Units 326-375 [] Units >375 Contact MD"
[2020-07-13 15:11] LABS: MYCOPLASMA PNEUMONIAE IGG 1.4
== END 2020-07-12 14:08 | disposition home or self-care (01) | DRG 871 ==
LOC: EDUNIT# → ED 20:24 → MS2 23:29
PROVIDERS: ADMIT Internal Medicine; ATTEND Specialist
DX: A41.01 Sepsis due to Methicillin susceptible Staphylococcus aureus (principal); R21 Rash and other nonspecific skin eruption; L29.8 Other pruritus; L08.9 Local infection of the skin and subcutaneous tissue, unspecified; E86.0 Dehydration; F03.90 Unspecified dementia, unspecified severity, without behavioral disturbance, psychotic disturbance, mood disturbance, and anxiety; J18.9 Pneumonia, unspecified organism; I13.0 Hypertensive heart and chronic kidney disease with heart failure and stage 1 through stage 4 chronic kidney disease, or unspecified chronic kidney disease; N18.9 Chronic kidney disease, unspecified; I50.9 Heart failure, unspecified; I48.91 Unspecified atrial fibrillation; L03.113 Cellulitis of right upper limb; L12.0 Bullous pemphigoid; F03.91 Unspecified dementia, unspecified severity, with behavioral disturbance; N17.9 Acute kidney failure, unspecified; N18.4 Chronic kidney disease, stage 4 (severe); E11.22 Type 2 diabetes mellitus with diabetic chronic kidney disease; I48.0 Paroxysmal atrial fibrillation; M10.9 Gout, unspecified; Z66 Do not resuscitate; Z79.82 Long term (current) use of aspirin; Z79.52 Long term (current) use of systemic steroids; Z79.899 Other long term (current) drug therapy; Z86.19 Personal history of other infectious and parasitic diseases
CPT/HCPCS: 36415; 71045; 80048; 80053; 81001; 83605; 83690; 83735; 83880; 84100; 85025; 86140; 86738; 86769; 87040; 87181; 87640; 94640; 96372; 99284; 99285; A9270; C1751; J2060; J7120; J7512; U0004; 81003; 87086

== ENCOUNTER 2020-07-12 14:04 | Outpatient (CLI) | payer MEDICARE, MEDICAID | END 2020-07-12 14:05 | disposition home or self-care (01) | LOC: EMS 14:04 | PROVIDERS: ATTEND Surgery | DX: F03.91 Unspecified dementia, unspecified severity, with behavioral disturbance (principal) | CPT/HCPCS: A0425; A0428 ==

== ENCOUNTER 2020-07-22 15:45 | Outpatient (CLI) | payer MEDICARE, MEDICAID ==
[2020-07-22 16:19] LABS: BASOPHILS % (AUTO) 0.3 %; EOSINOPHILS # (AUTO) 0.7 10^3/uL (0.0-0.7); EOSINOPHILS % (AUTO) 5.8 %; HGB - HEMOGLOBIN 9.7 g/dL (12.0-16.0); LYMPHOCYTES # (AUTO) 2.2 10^3/uL (1.5-3.5); LYMPHOCYTES % (AUTO) 18.6 %; MEAN CORPUSCULAR HEMOGLOBIN 28.6 pg (27.0-31.0); MEAN CORPUSCULAR HGB CONC 30.7 g/dL (32.0-36.0); MEAN CORPUSCULAR VOLUME 93.2 fL (81.0-99.0); MEAN PLATELET VOLUME 10.1 fL (7.9-10.8); MONOCYTES # (AUTO) 0.7 10^3/uL (0.0-1.0); MONOCYTES % (AUTO) 6.2 %; NEUTROPHILS # (AUTO) 8.2 10^3/uL (1.5-6.6); NEUTROPHILS % (AUTO) 68.2 %; PLT - PLATELET COUNT 356 10^3/uL (130-450); RED BLOOD COUNT 3.39 10^6/uL (4.20-5.40); RED CELL DISTRIBUTION WIDTH 15.5 % (12.0-15.0)
[2020-07-22 16:33] LABS: CALCIUM 8.2 mg/dL (8.5-10.3)
== END 2020-07-22 23:59 | disposition home or self-care (01) ==
LOC: LAB.R 15:45
PROVIDERS: ATTEND Family Medicine
DX: R79.89 Other specified abnormal findings of blood chemistry (principal); R79.9 Abnormal finding of blood chemistry, unspecified; N18.9 Chronic kidney disease, unspecified
CPT/HCPCS: 80048; 85025

== ENCOUNTER 2020-07-30 13:59 | Outpatient (CLI) | payer MEDICARE, MEDICAID ==
--- NOTE | 2020-07-30 15:37 | XRAY Report ---
PROCEDURE: Chest 2 View X-Ray INDICATIONS: PNEUMONIA TECHNIQUE: 2 view(s) of the chest. COMPARISON: 07/12/2020. FINDINGS: Surgical changes and devices: None. Lungs and pleura: No pleural effusions or pneumothorax. Lungs are clear. Mediastinum: Mediastinal contours are normal. Heart size is enlarged. Bones and chest wall: No suspicious bony abnormalities. Soft tissues appear unremarkable. IMPRESSION: Interval resolution of previously noted hazy opacities in bilateral lung patel. No foca l infiltrate, pleural effusion or pneumothorax it is seen on the current study. Cardiomegaly. Reviewed by: Jesus Alberto Boyce MD on 07/30/2020 3:35 PM PDT Approved by: Jesus Alberto Boyce MD on 07/30/2020 3:35 PM PDT Station ID: [id number]
== END 2020-07-30 14:00 | disposition home or self-care (01) ==
LOC: DI 13:59
PROVIDERS: ATTEND Family Medicine
DX: J18.9 Pneumonia, unspecified organism (principal)
CPT/HCPCS: 71046

== ENCOUNTER 2020-08-04 08:00 | Outpatient (CLI) | payer MEDICARE, MEDICAID ==
[2020-08-04 19:23] LABS: BASOPHILS % (AUTO) 0.2 %; HGB - HEMOGLOBIN 9.7 g/dL (12.0-16.0); LYMPHOCYTES % (AUTO) 2.9 %; MEAN CORPUSCULAR HEMOGLOBIN 29.8 pg (27.0-31.0); MEAN CORPUSCULAR HGB CONC 31.6 g/dL (32.0-36.0); MEAN CORPUSCULAR VOLUME 94.5 fL (81.0-99.0); MEAN PLATELET VOLUME 10.3 fL (7.9-10.8); MONOCYTES % (AUTO) 1.6 %; NEUTROPHILS % (AUTO) 82.7 %; PLT - PLATELET COUNT 284 10^3/uL (130-450); RED BLOOD COUNT 3.25 10^6/uL (4.20-5.40); RED CELL DISTRIBUTION WIDTH 15.6 % (12.0-15.0); WHITE BLOOD COUNT 12.5 x10^3/uL (4.8-10.8)
[2020-08-04 19:30] LABS: ABNORMAL LYMPHS % (MANUAL) 0 %
[2020-08-04 19:49] LABS: BAND NEUTROPHILS % (MANUAL) 1 %; DIFFERENTIAL COMMENT MANUAL DIFFERENTIAL; LYMPHOCYTES # (MANUAL) 0.3 10^3/uL (1.5-3.5); LYMPHOCYTES % (MANUAL) 2 %; PLATELET ESTIMATE, MANUAL NORMAL (130-450,000) (NORMAL); PLATELET MORPHOLOGY NORMAL APPEARANCE (NORMAL); RBC MORPHOLOGY (MULTIPLE) 1+ ANISOCYTOSIS (NORMAL)
[2020-08-04 19:51] LABS: CALCIUM 7.8 mg/dL (8.5-10.3); CREATININE 2.2 mg/dL (0.4-1.0)
== END 2020-08-04 23:59 | disposition home or self-care (01) ==
LOC: LAB.R 08:00
PROVIDERS: ATTEND Family Medicine
DX: E78.5 Hyperlipidemia, unspecified (principal); D64.9 Anemia, unspecified
CPT/HCPCS: 80048; 85025

== ENCOUNTER 2020-09-07 08:00 | Outpatient (CLI) | payer MEDICARE, MEDICAID ==
[2020-09-07 15:35] LABS: BASOPHILS % (AUTO) 0.2 %; EOSINOPHILS % (AUTO) 0.2 %; HGB - HEMOGLOBIN 11.2 g/dL (12.0-16.0); LYMPHOCYTES # (AUTO) 0.5 10^3/uL (1.5-3.5); LYMPHOCYTES % (AUTO) 3.5 %; MEAN CORPUSCULAR HEMOGLOBIN 29.6 pg (27.0-31.0); MEAN CORPUSCULAR HGB CONC 31.8 g/dL (32.0-36.0); MEAN CORPUSCULAR VOLUME 92.9 fL (81.0-99.0); MEAN PLATELET VOLUME 9.8 fL (7.9-10.8); MONOCYTES # (AUTO) 0.2 10^3/uL (0.0-1.0); NEUTROPHILS # (AUTO) 14.4 10^3/uL (1.5-6.6); NEUTROPHILS % (AUTO) 93.9 %; PLT - PLATELET COUNT 342 10^3/uL (130-450); RED BLOOD COUNT 3.79 10^6/uL (4.20-5.40); RED CELL DISTRIBUTION WIDTH 15.2 % (12.0-15.0); WHITE BLOOD COUNT 15.4 x10^3/uL (4.8-10.8)
[2020-09-07 15:52] LABS: ALBUMIN 2.2 g/dL (3.2-5.5); ALBUMIN/GLOBULIN RATIO 0.6 (1.0-2.2); ALKALINE PHOSPHATASE 65 IU/L (42-121); ALT ALANINE AMINOTRANSFERASE 22 IU/L (10-60); AST ASPARTATE AMINOTRANSFERASE 17 IU/L (10-42); BILIRUBIN,TOTAL 0.3 mg/dL (0.2-1.0); BUN - BLOOD UREA NITROGEN 59 mg/dL (6-20); CALCIUM 8.4 mg/dL (8.5-10.3); CARBON DIOXIDE - CO2 23 mmol/L (21-32); CHLORIDE 102 mmol/L (101-111); CHOLESTEROL 207 mg/dL; CREATININE 2.3 mg/dL (0.4-1.0); GLUCOSE 203 mg/dL (70-100); HDL CHOLESTEROL 70 mg/dL; LDL CHOLESTEROL,CALCULATED 96 mg/dL; LDL/HDL RATIO 1.4 (<4.4); SODIUM 137 mmol/L (135-145); TOTAL PROTEIN 5.7 g/dL (6.7-8.2); VLDL CHOLESTEROL 41 mg/dL
== END 2020-09-07 23:59 | disposition home or self-care (01) ==
LOC: LAB.R 08:00
DX: I13.2 Hypertensive heart and chronic kidney disease with heart failure and with stage 5 chronic kidney disease, or end stage renal disease (principal); E78.5 Hyperlipidemia, unspecified; E11.29 Type 2 diabetes mellitus with other diabetic kidney complication; N18.6 End stage renal disease
CPT/HCPCS: 80053; 80061; 83721; 85025

== ENCOUNTER 2020-09-10 14:40 | Outpatient (CLI) | payer MEDICARE, MEDICAID ==
[2020-09-10 15:42] LABS: BASOPHILS % (AUTO) 0.1 %; EOSINOPHILS # (AUTO) 0.1 10^3/uL (0.0-0.7); EOSINOPHILS % (AUTO) 0.4 %; HGB - HEMOGLOBIN 10.1 g/dL (12.0-16.0); LYMPHOCYTES # (AUTO) 0.4 10^3/uL (1.5-3.5); LYMPHOCYTES % (AUTO) 2.5 %; MEAN CORPUSCULAR HGB CONC 32.8 g/dL (32.0-36.0); MEAN CORPUSCULAR VOLUME 91.4 fL (81.0-99.0); MONOCYTES # (AUTO) 0.1 10^3/uL (0.0-1.0); NEUTROPHILS # (AUTO) 13.2 10^3/uL (1.5-6.6); PLT - PLATELET COUNT 280 10^3/uL (130-450); RED BLOOD COUNT 3.37 10^6/uL (4.20-5.40); WHITE BLOOD COUNT 13.9 x10^3/uL (4.8-10.8)
[2020-09-10 16:01] LABS: ALBUMIN/GLOBULIN RATIO 0.6 (1.0-2.2); ALKALINE PHOSPHATASE 53 IU/L (42-121); ALT ALANINE AMINOTRANSFERASE 20 IU/L (10-60); AST ASPARTATE AMINOTRANSFERASE 15 IU/L (10-42); BILIRUBIN,TOTAL 0.6 mg/dL (0.2-1.0); BUN - BLOOD UREA NITROGEN 56 mg/dL (6-20); CALCIUM 7.7 mg/dL (8.5-10.3); CARBON DIOXIDE - CO2 23 mmol/L (21-32); CHLORIDE 105 mmol/L (101-111); CHOL/HDL RATIO 2.9 (<4.4); CHOLESTEROL 170 mg/dL; CREATININE 2.6 mg/dL (0.4-1.0); GLUCOSE 216 mg/dL (70-100); HDL CHOLESTEROL 59 mg/dL; LDL CHOLESTEROL,CALCULATED 92 mg/dL; LDL/HDL RATIO 1.6 (<4.4); SODIUM 138 mmol/L (135-145); TOTAL PROTEIN 5.6 g/dL (6.7-8.2); VLDL CHOLESTEROL 19 mg/dL
[2020-09-10 19:50] LABS: HEMOGLOBIN A1c% 6.8 % (4.27-6.07)
== END 2020-09-10 23:59 | disposition home or self-care (01) ==
LOC: LAB.R 14:40
DX: E78.5 Hyperlipidemia, unspecified (principal); D64.9 Anemia, unspecified; E11.29 Type 2 diabetes mellitus with other diabetic kidney complication; N18.6 End stage renal disease; R60.9 Edema, unspecified
CPT/HCPCS: 80053; 80061; 83036; 83721; 85025

== ENCOUNTER 2020-09-26 13:40 | Outpatient (CLI) | payer MEDICARE, MEDICAID ==
[2020-09-26 15:36] LABS: BILIRUBIN,URINE NEGATIVE (NEGATIVE); GLUCOSE, URINE (UA) NEGATIVE (NEGATIVE); KETONES,URINE (UA) NEGATIVE (NEGATIVE); LEUKOCYTE ESTERASE, URINE MODERATE (NEGATIVE); NITRITE,URINE NEGATIVE (NEGATIVE); OCCULT BLOOD,URINE MODERATE (NEGATIVE); PH,URINE 5.5 PH (5.0-7.5); PROTEIN,URINE >=300 mg/dL (NEGATIVE); UROBILINOGEN,URINE 0.2 (NORMAL) E.U./dL (NORMAL)
[2020-09-26 16:09] LABS: CLARITY,URINE CLOUDY (CLEAR)
[2020-09-26 16:29] LABS: BACTERIA,URINE Many /HPF (None Seen); RBC,URINE TNTC /HPF (0-5); SQUAMOUS EPITHELIAL CELL,UR NONE SEEN (<= Few)
== END 2020-09-26 23:59 | disposition home or self-care (01) ==
LOC: LAB.R 13:40
DX: F03.91 Unspecified dementia, unspecified severity, with behavioral disturbance (principal); N18.6 End stage renal disease
CPT/HCPCS: 81001; 87086; 87181

== ENCOUNTER 2020-10-01 15:50 | Outpatient (CLI) | payer MEDICARE, MEDICAID ==
[2020-10-01 16:48] LABS: BASOPHILS # (AUTO) 0.1 10^3/uL (0.0-0.1); BASOPHILS % (AUTO) 0.2 %; EOSINOPHILS # (AUTO) 0.1 10^3/uL (0.0-0.7); EOSINOPHILS % (AUTO) 0.2 %; HGB - HEMOGLOBIN 8.8 g/dL (12.0-16.0); LYMPHOCYTES # (AUTO) 0.4 10^3/uL (1.5-3.5); LYMPHOCYTES % (AUTO) 1.9 %; MEAN CORPUSCULAR HEMOGLOBIN 28.4 pg (27.0-31.0); MEAN CORPUSCULAR HGB CONC 32.1 g/dL (32.0-36.0); MEAN CORPUSCULAR VOLUME 88.4 fL (81.0-99.0); MEAN PLATELET VOLUME 9.4 fL (7.9-10.8); MONOCYTES # (AUTO) 0.7 10^3/uL (0.0-1.0); MONOCYTES % (AUTO) 2.9 %; NEUTROPHILS # (AUTO) 20.9 10^3/uL (1.5-6.6); PLT - PLATELET COUNT 263 10^3/uL (130-450); RED CELL DISTRIBUTION WIDTH 15.3 % (12.0-15.0); WHITE BLOOD COUNT 22.3 x10^3/uL (4.8-10.8)
[2020-10-01 16:53] LABS: CALCIUM 7.3 mg/dL (8.5-10.3); CREATININE 3.1 mg/dL (0.4-1.0)
[2020-10-01 18:40] LABS: DIFFERENTIAL COMMENT MANUAL=AUTO DIFF; PLATELET ESTIMATE, MANUAL NORMAL (130-450,000) (NORMAL); PLATELET MORPHOLOGY NORMAL APPEARANCE (NORMAL)
== END 2020-10-01 23:59 | disposition home or self-care (01) ==
LOC: LAB.R 15:50
DX: E78.5 Hyperlipidemia, unspecified (principal); E11.29 Type 2 diabetes mellitus with other diabetic kidney complication; R82.71 Bacteriuria; D64.9 Anemia, unspecified
CPT/HCPCS: 80048; 85025

== ENCOUNTER 2020-10-04 12:15 | Outpatient (CLI) | payer MEDICARE, MEDICAID ==
[2020-10-04 15:41] LABS: BASOPHILS % (AUTO) 0.3 %; HGB - HEMOGLOBIN 8.7 g/dL (12.0-16.0); LYMPHOCYTES % (AUTO) 3.5 %; MEAN CORPUSCULAR HEMOGLOBIN 28.2 pg (27.0-31.0); MEAN CORPUSCULAR HGB CONC 31.6 g/dL (32.0-36.0); MEAN CORPUSCULAR VOLUME 89.3 fL (81.0-99.0); MEAN PLATELET VOLUME 9.3 fL (7.9-10.8); MONOCYTES % (AUTO) 3.8 %; NEUTROPHILS % (AUTO) 91.4 %; PLT - PLATELET COUNT 306 10^3/uL (130-450); RED BLOOD COUNT 3.08 10^6/uL (4.20-5.40); RED CELL DISTRIBUTION WIDTH 15.2 % (12.0-15.0); WHITE BLOOD COUNT 21.6 x10^3/uL (4.8-10.8)
[2020-10-04 16:00] LABS: ALBUMIN 1.2 g/dL (3.2-5.5); ALBUMIN/GLOBULIN RATIO 0.3 (1.0-2.2); BILIRUBIN,TOTAL 0.6 mg/dL (0.2-1.0); CALCIUM 7.5 mg/dL (8.5-10.3); CREATININE 3.3 mg/dL (0.4-1.0); TOTAL PROTEIN 4.7 g/dL (6.7-8.2)
[2020-10-04 16:07] LABS: ABNORMAL LYMPHS % (MANUAL) 0 %; LYMPHOCYTES % (MANUAL) 0 %
[2020-10-04 16:59] LABS: BAND NEUTROPHILS % (MANUAL) 3 %; DIFFERENTIAL COMMENT MANUAL DIFFERENTIAL; MONOCYTES # (MANUAL) 0.6 10^3/uL (0.0-1.0); PLATELET ESTIMATE, MANUAL NORMAL (130-450,000) (NORMAL); PLATELET MORPHOLOGY NORMAL APPEARANCE (NORMAL); RBC MORPHOLOGY (MULTIPLE) NORMAL APPEARANCE (NORMAL)
== END 2020-10-04 23:59 | disposition home or self-care (01) ==
LOC: LAB.R 12:15
DX: E11.29 Type 2 diabetes mellitus with other diabetic kidney complication (principal); I13.2 Hypertensive heart and chronic kidney disease with heart failure and with stage 5 chronic kidney disease, or end stage renal disease; N18.6 End stage renal disease
CPT/HCPCS: 80053; 82533; 85025